=== PATIENT | female | born 1945 | race Caucasian/White ===

== ENCOUNTER 2022-03-31 10:34 | Outpatient (CLI) | payer MEDICARE, SELFPAY ==
--- NOTE | ~2022-03-31 | XR_ITS ---
EXAMINATION: XR scoliosis survey DATE: 03/31/2022 11:15 INDICATION: Scoliosis, unspecified. TECHNIQUE: Frontal and lateral views of the entire spine standing with breast ellis were obtained. COMPARISON: None. FINDINGS: Right femoral head stands 7 mm higher than the left. There is kyphosis of thoracic spine. T here are 12 pairs of ribs. There are 5 nonrib-bearing lumbar segments. There is 20 degrees levoscolio sis from T1 to T5 by the Stringer method. There is mild thoracic and lumbar spondylosis. IMPRESSION: 1. 20 degrees levoscoliosis from T1 to T5. 2. Thoracic kyphosis. Reviewed, dictated and finalized at location A.
[2022-03-31 11:10] LABS: Albumin Level 4.2 g/dL (3.5-5.1); Cholesterol 193 mg/dL (0-200); HDL Direct 103 mg/dL; Triglycerides 102 mg/dL (<150)
[2022-03-31 11:20] LABS: LDL Cholesterol Direct 61 mg/dL; Prealbumin 16.7 mg/dL (17.6-36.0)
[2022-03-31 11:45] LABS: Hemoglobin A1C 5.8 % (<5.7)
[2022-03-31 12:16] LABS: Folic Acid 18.2 ng/mL (2.76->20)
[2022-03-31 12:18] LABS: Free T4 Free Thyroxine 1.54 ng/mL (0.78-2.19); Vitamin D 25 Hydroxy 67.7 ng/mL
[2022-04-03 11:12] LABS: Vitamin B1 43 nmol/L (8-30)
[2022-04-06 05:13] LABS: Vitamin B6 15.8 ng/mL (2.1-21.7)
[2022-04-08 17:41] LABS: Vitamin B2 49.1 nmol/L (6.2-39.0)
== END 2022-03-31 10:35 | disposition home or self-care (01) ==
PROVIDERS: PCP Internal Medicine; Visit Provider Internal Medicine
DX: I73.9 Peripheral vascular disease, unspecified (principal); Z13.220 Encounter for screening for lipoid disorders; F09 Unspecified mental disorder due to known physiological condition; E55.9 Vitamin D deficiency, unspecified; M81.0 Age-related osteoporosis without current pathological fracture; R63.4 Abnormal weight loss; Z13.29 Encounter for screening for other suspected endocrine disorder; Z13.1 Encounter for screening for diabetes mellitus; M95.5 Acquired deformity of pelvis; Z79.899 Other long term (current) drug therapy; M41.84 Other forms of scoliosis, thoracic region; M40.294 Other kyphosis, thoracic region
CPT/HCPCS: 36415; 72082; 80061; 82040; 82306; 82607; 82746; 83036; 84134; 84155; 84207; 84252; 84425; 84439

== ENCOUNTER 2022-05-29 11:06 | Observation (INO) | payer MEDICARE, SELFPAY ==
[2022-05-29] VITALS (51 sets, daily range): BP systolic 126–169; BP diastolic 75–121; PULSE 64–154; RESP 13–25; TEMP 36.6; O2SAT 96–100
--- NOTE | 2022-05-29 11:08 | ECG_ITS ---
Measurements Intervals [place] Rate: 154 P: PA: 0 QRS: 60 QRSD: 69 T: 19 QT: 307 QTc: 492 Interpretive Statements ATRIAL FLUTTER/TACHYCARDIA WITH RAPID VENTRICULAR RESPONSE NONSPECIFIC ST SEGMENT ABNORMALITY ABNORMAL ECG NO PREVIOUS ECG AVAILABLE FOR COMPARISON Electronically Signed On 05-29-2022 16:40:26 RECORD CENTER SPECIALIST by Kunal Mendoza M.D.
[2022-05-29 11:27] LABS: Basophils Absolute Auto 0.1 K/mm3 (0.0-0.1); Basophils Percent Auto 1.1 % (0.2-1.2); Eosinophils Absolute Auto 0.2 K/mm3 (0-0.3); Eosinophils Percent Auto 1.6 % (0-4.4); Hematocrit 40.8 % (37.0-47.0); Hemoglobin 12.4 g/dL (12.0-15.0); Immature Granulocyte Absolute 0.04 K/mm3 (0.00-0.031); Immature Granulocyte Percent A 0.4 % (0-0.5); Lymphocytes Absolute Auto 1.13 K/mm3 (0.9-3.2); Lymphocytes Percent Auto 10.9 % (18.3-44.2); Mean Corpuscular HGB Conc 30.4 g/dl (32-36); Mean Corpuscular Hemoglobin 24.8 pg (26-34); Mean Corpuscular Volume 81.8 fl (80-100); Mean Platelet Volume 10.9 fl (7.4-10.4); Monocytes Percent Auto 9.3 % (2.6-8.5); Neutrophils Absolute Auto 7.9 K/mm3 (1.3-6.7); Neutrophils Percent Auto 76.7 % (45.5-73.1); Platelet Count Result 358 k/mm3 (150-375); Red Blood Count 4.99 M/mm3 (4.2-5.4); Red Cell Distribution Width 15.3 % (11.5-14.5); White Blood Count 10.3 K/mm3 (4.5-10.0)
[2022-05-29 11:35] LABS: Alanine Aminotransferase 17 U/L (6-35); Albumin Level 4.3 g/dL (3.5-5.1); Alkaline Phosphatase 92 U/L (38-126); Anion Gap 8 mmol/L (8-16); Aspartate Amino Transferase 26 U/L (14-36); Bilirubin,Total 0.7 mg/dL (0.2-1.3); Blood Urea Nitrogen 20 mg/dL (7-17); Calcium 8.9 mg/dL (8.4-10.2); Carbon Dioxide 27 mmol/L (22-30); Chloride 107 mmol/L (98-107); Estimated CRCL calculation 43 ml/min; Estimated Glomerular Filt Rate > 60; Glucose 108 mg/dL (65-110); Potassium 3.8 mmol/L (3.4-5.0); Sodium 142 mmol/L (137-145)
--- NOTE | 2022-05-29 12:08 | ED.GENADULT ---
HPI - General Adult General Chief complaint: Arrhythmia/Palpitations Stated complaint: high heart rate, sent over from [facility] Time Seen by Provider: 05/29/22 11:41 History of Present Illness HPI narrative: 76-year-old female with past medical history of dementia and distant history of paroxysmal atrial fibrillation presents to our department for tachycardia. Patient visited a new PCP to establish care today and on arrival was noted to have a heart rate in the 150s. She was diverted to the emergency department for treatment. Of note this elevated heart rate is asymptomatic and patient would not have known that her heart was beating quickly if the doctor had not checked it. She denies lightheadedness, weakness, syncope, chest pain, shortness of breath, palpitations. has inform me that the patient wears an apple watch and he will noticed that his 's heart rate will often elevate when they are on walks but he has never felt any concerns about it. I have reviewed his log from the apple watch and patient's heart rate generally goes to the 120s to 140s returns to normal rate with rest. Twelve-lead EKG performed in triage demonstrates an atrial fibrillation with RVR in the 150s. No anticoagulant/ antiplatelet medication. She has seen an reconcilement clerk at [facility] who felt that no intervention was warranted. Related Data Home Medications Medication Instructions Recorded Confirmed aspirin 81 mg tablet,delayed 81 mg PO DAILY 03/31/22 03/31/22 release (Adult Low Dose Aspirin) calcium citrate 250 mg 1 tablet PO TID 03/31/22 03/31/22 calcium-vitamin D3 5 mcg (200 unit) tablet (Citracal Regular) szquadnt-kcn-yjtmb ac 400 tablet PO 03/31/22 03/31/22 mcg-calcium carb 500 mg-vit K1 20 mcg tablet (Women's 50 Plus Multivitamin) omega-3 fatty acids 1,000 mg 1,000 mg PO BID 03/31/22 03/31/22 capsule Allergies Allergy/AdvReac Type Severity Reaction Status Date / Time No Known Drug Allergies AdvReac Unknown Verified 03/31/22 09:03 Review of Systems Review of Systems: CONSTITUTIONAL: Denies fever, chills, or sweats. EYES: Denies visual changes, redness, or discharge. ENT: Denies rhinorrhea, congestion, sore throat, or otalgia. CARDIOVASCULAR: Denies chest pain, palpitations, or edema. RESPIRATORY: Denies cough or dyspnea. GASTROINTESTINAL: Denies abdominal pain, nausea, vomiting, or diarrhea. GENITOURINARY: Denies dysuria or hematuria. SKIN: Denies rash or itching. MUSCULOSKELETAL: Denies back pain, joint pain, or myalgia. NEUROLOGIC: Denies headache, numbness, or weakness. PSYCHIATRIC: Denies anxiety or depression. [facility] Past Medical History Medical History (Updated 05/29/22 @ 16:58 by Crystal Cole NP) Adult BMI <19 kg/sq m Cataracts, bilateral Cognitive dysfunction Dementia Encounter to establish care Impaired functional mobility, balance, gait, and endurance On halfway drug therapy Orthostatic hypertension Osteoporosis Pre-diabetes Scoliosis Small vessel disease SVT (supraventricular tachycardia) Syncopal episodes Tachycardia Unintentional weight loss Surgical History Surgical History (Updated 05/29/22 @ 13:21 by Crystal Cole NP) H/O wrist surgery History of laparoscopic cholecystectomy Family History Family History Mother , sepsis- bladder infection Dementia Sibling No problems noted. Social History Social History (Updated 05/29/22 @ 16:31 by Crystal Cole NP) Social History: The patient and they have no children. She worked at 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 One a week she has a glass a wine. She is a lifelong nonsmoker. Her is a durable power civil litigation attorney for healthcare. Code status full code Smoking status: Never smoker Second hand tobacco smoke exposure: No Alcohol intake: current Drinks per week: 2 Alc
[2022-05-29 12:16] LABS: Troponin I < 0.012 ng/mL (0.000-0.034)
[2022-05-29] MEDS: dilTIAZem HCl INJ 25 MG/5 ML VIAL 5 MG IV PUSH ×2 (12:21→12:41)
--- NOTE | 2022-05-29 12:34 | PC.NURSE ---
AMBROCIO from Dr. Iraheta for 5mg diltiazem
[2022-05-29] MEDS: METOPROLOL TARTRATE 25 MG TABLET PO (13:11)
--- NOTE | 2022-05-29 13:17 | PM.IMHP ---
H&P: HPI History of Present Illness Date/Time: 05/29/22 13:17 Chief Complaint: Arrhythmia palpitation Narrative: This is a 76-year-old female patient who is typically healthy. She does have a history of orthostatic hypotension. She has also had a history of having syncopal episodes. The patient has been placed on fludrocortisone for her orthostatic hypotension. The patient typically has a fast heart rate. The patient likes to walk. The patient stated that she did have some episodes in the past were heart rate was fast but was only placed on and baby aspirin the medications for it. The patient recently moved here and was establishing care with Dr. Bingham. The patient was sent to the emergency room due to heart rate in the 150s. The patient was asymptomatic. The patient was found to be in AFib with RVR. She has a history of dementia and the patient's is answering the questions for her. The patient was given Cardizem IV and then p.o. and then was started on metoprolol. Cardiology has seen the patient stated that the patient may be discharged to home. Her white count was found to be 10.3. Troponins negative x2. She was found to be negative for influenza A/B and COVID. The patient is being admitted to observation status on the date of service of 05/29/2022. short stay and will be discharged to home . Review of Systems Review of Systems: All systems reviewed & are unremarkable except as noted in HPI and below Constitutional: Constitutional: Reports as per HPI and Reports no additional constitutional complaints Eyes: Eyes: Reports as per HPI and Reports no additional eye complaints ENT: Reports system reviewed and no additional complaints, except as documented and Reports Normal hearing present Cardiovascular: Cardiovascular: Reports no additional cardiovascular complaints Respiratory: Respiratory: Reports no additional respiratory complaints and Reports no additional respiratory complaints Gastrointestinal: Gastrointestinal: Reports as per HPI and Reports no additional gastrointestinal complaints Musculoskeletal: Musculoskeletal: Reports no additional musculoskeletal complaints Integumentary/Breasts: Skin/Breast: Reports system reviewed and no additional complaints, except as docu and Reports as per HPI Neurologic: Reports system reviewed and no additional complaints, except as documented, Reports as per HPI and Reports Normal hearing present Psychiatric: Psychiatric: Reports no additional psychiatric complaints and Reports as per HPI Endocrine: Endocrine: Reports no additional endocrine complaints Hematologic/Lymphatic: Hematologic/Lymphatic: Reports no additional hematologic/lymphatic complaints Allergic/Immunologic: Allergic/Immunologic: Reports no additional allergic/immunologic complaints [facility] Past Medical History Medical History (Updated 05/29/22 @ 16:58 by Crystal Cole NP) Adult BMI <19 kg/sq m Cataracts, bilateral Cognitive dysfunction Dementia Encounter to establish care Impaired functional mobility, balance, gait, and endurance On correction drug therapy Orthostatic hypertension Osteoporosis Pre-diabetes Scoliosis Small vessel disease SVT (supraventricular tachycardia) Syncopal episodes Tachycardia Unintentional weight loss Surgical History Surgical History (Updated 05/29/22 @ 13:21 by Crystal Cole NP) H/O wrist surgery History of laparoscopic cholecystectomy Family History Family History Mother , sepsis- bladder infection Dementia Sibling No problems noted. Social History Social History (Updated 05/29/22 @ 16:31 by Crystal Cole NP) Social History: The patient and they have no children. She worked at [employer] with a degree and [employer] science. One a week she has a glass a wine. She is a lifelong nonsmoker. Her is a durable power sports attorney for heal
--- NOTE | 2022-05-29 14:34 | ECG_ITS ---
Measurements Intervals [place] Rate: 65 P: 60 VA: 162 QRS: 55 QRSD: 74 T: 72 QT: 423 QTc: 441 Interpretive Statements SINUS RHYTHM WITH OCCASIONAL SUPRAVENTRICULAR PREMATURE COMPLEXES POSSIBLE LEFT ATRIAL ENLARGEMENT [-0.1mV P WAVE IN V1/V2] MINIMAL ST DEPRESSION [0.025+ mV ST DEPRESSION] COMPARED TO ECG 05/29/2022 11:13:17 SINUS RHYTHM REPLACES ATRIAL FLUTTER Electronically Signed On 05-29-2022 16:45:51 PACKAGING CLERK by Kunal Mendoza M.D.
[2022-05-29 14:51] LABS: Troponin I < 0.012 ng/mL (0.000-0.034)
[2022-05-29 16:07] LABS: Influenza A QL RT-PCR Negative (Negative); Influenza B QL RT-PCR Negative (Negative); SARS-CoV-2 RNA PCR Negative
--- NOTE | 2022-05-29 16:09 | PM.CNCAR ---
Assessment and Plan Assessment and plan (1) SVT (supraventricular tachycardia): Code(s): I47.1 - Supraventricular tachycardia Status: Acute Plan This is a 76-year-old lady with a history of some L time was type dementia according to the who has now history of both paroxysmal atrial fib as well as paroxysmal atrial flutter. During both these arrhythmias she is asymptomatic and unaware of her arrhythmia. She was treated in the emergency room and is back in sinus rhythm. I would agree with her seal mixer several months ago and that she is a poor candidate for systemic anticoagulation as she is quite frail and has a propensity to fall. On the positive side she says she has not done any falling since being placed on Florinef. I believe since she is back in sinus rhythm in that she can be safely discharged I would like to get an echocardiogram on her in the office and then see her in follow-up for further management of this. Kunal Mendoza MD [facility] History of Present Illness History of Present Illness Consult date/time: 05/29/22 16:09 Reason For Visit: Atrial Fibrillation with RVR Narrative: This is a 76-year-old woman known to me prior to this encounter am seeing her at the request of the emergency staff/hospitalist because of atrial flutter which was treated this morning in the emergency room. The patient has a history of paroxysmal atrial fibrillation which has been asymptomatic. She seen in a routine appointment with her primary care physician, Dr. Melgar this morning and was found to be tachycardic in the office and electrocardiogram demonstrated atrial flutter with 2-1 conduction and she was sent to the emergency room. Remarkably she was completely unaware of this and asymptomatic of her arrhythmia she denies any sense of tachycardia or palpitations chest pain shortness of breath or any other symptomatology. She is not a great historian she does have a history of some dementia according to her is with her in the room. He states that she had really no cardiac history at all until August of this year which she was found to have asymptomatic paroxysmal atrial fibrillation. Prior to that she has had several episodes of syncope that were unexplained. For that reason her physician had her wear a 24 hour monitor device which demonstrated an episode of atrial fibrillation that apparently lasted for about 20 seconds. She was referred to an seal mixer at [facility] who did not believe that this had a thing to do with syncopal episodes and because of her propensity to fall did not recommend treating the arrhythmia and did not recommend an anticoagulant. 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 She became established with her primary care with Dr. Motta. She also carries the diagnosis of orthostatic hypotension. She states that she was started on Florinef about 3-4 months ago but because of the syncope in this diagnosis and since being started on Florinef has not had any further loss of consciousness spells. She does carry the diagnosis of dementia her states she has felt to have are early stage Alzheimer's. In the emergency room this morning she was initially given some IV diltiazem which did slow her heart rate she was then given some oral metoprolol and then she converted to sinus rhythm. Review of Systems Constitutional: Constitutional: Reports lethargy Eyes: Eyes: Reports no additional eye complaints ENT: Reports system reviewed and no additional complaints, except as documented Cardiovascular: Cardiovascular: Reports as per HPI Respiratory: Respiratory: Reports no additional respiratory complaints Gastrointestinal: Gastrointestinal: Reports no additional gastrointestinal complaints Musculoskeletal: Musculoskeletal: Reports no additional musculoskeletal complaints Integumentary/Breasts: Skin/Breast: Reports system r
--- NOTE | 2022-05-29 16:57 | PC.NURSE ---
heart healthy diet food tray ordered
--- NOTE | 2022-05-29 17:19 | PM.DS ---
DS: Admitting Diagnosis Discharge Date 05/29/2022 Admitting Diagnosis Palpitations DS: Discharge Diagnosis Discharge Diagnosis [facility] [address] [place] [id number] History & Physical Report Signed Patient: Shelly Mims MR#: [id number] : 1945 Acct:[id number] Age/Sex: 76 / F ADM Date: 05/29/22 Loc: [facility] VB6-[address]: Lizabeth Samaniego MD cc: Lizabeth Samaniego MD; Alejandro Melgar MD; Siddharth Iraheta D.C. DO~ H&P: HPI History of Present Illness Date/Time: 05/29/22? 13:17 Chief Complaint: Arrhythmia palpitation Narrative: This is a 76-year-old female patient who is typically healthy.? She does have a history of orthostatic hypotension.? She has also had a history of having syncopal episodes.? The patient has been placed on fludrocortisone for her orthostatic hypotension.? The patient typically has a fast heart rate.? The patient likes to walk.? The patient stated that she did have some episodes in the past were heart rate was fast but was only placed on and baby aspirin the medications for it.? The patient recently moved here and was establishing care with Dr. Bingham.? The patient was sent to the emergency room due to heart rate in the 150s.? The patient was asymptomatic.? The patient was found to be in AFib with RVR.? She has a history of dementia and the patient's is answering the questions for her.? The patient was given Cardizem IV and then p.o. and then was started on metoprolol.? Cardiology has seen the patient stated that the patient may be discharged to home.? Her white count was found to be 10.3.? Troponins negative x2.? She was found to be negative for influenza A/B and COVID.? The patient is being admitted to observation status on the date of service of 05/29/2022. short stay and will be discharged to home . Review of Systems Review of Systems:?? All systems reviewed & are unremarkable except as noted in HPI and below Constitutional:?? Constitutional: Reports as per HPI and Reports no additional constitutional complaints Eyes:?? Eyes: Reports as per HPI and Reports no additional eye complaints ENT:?? Reports system reviewed and no additional complaints, except as documented and Reports Normal hearing present Cardiovascular:?? Cardiovascular: Reports no additional cardiovascular complaints Respiratory:?? Respiratory: Reports no additional respiratory complaints and Reports no additional respiratory complaints Gastrointestinal:?? Gastrointestinal: Reports as per HPI and Reports no additional gastrointestinal complaints Musculoskeletal:?? Musculoskeletal: Reports no additional musculoskeletal complaints Integumentary/Breasts:?? Skin/Breast: Reports system reviewed and no additional complaints, except as docu and Reports as per HPI Neurologic:?? Reports system reviewed and no additional complaints, except as documented, Reports as per HPI and Reports Normal hearing present Psychiatric:?? Psychiatric: Reports no additional psychiatric complaints and Reports as per HPI Endocrine:?? Endocrine: Reports no additional endocrine complaints Hematologic/Lymphatic:?? Hematologic/Lymphatic: Reports no additional hematologic/lymphatic complaints Allergic/Immunologic:?? Allergic/Immunologic: Reports no additional allergic/immunologic complaints PMFSH Past Medical History Medical History?(Updated 05/29/22 @ 16:58 by Crystal Cole NP) Adult BMI <19 kg/sq m Cataracts, bilateral Cognitive dysfunction Dementia Encounter to establish care Impaired functional mobility, balance, gait, and endurance On long term care phlebotomist drug therapy Orthostatic hypertension Osteoporosis Pre-diabetes Scoliosis Small vessel disease SVT (supraventricular tachycardia) Syncopal episodes Tachycardia Unintentional weight loss Surgical History Surgical History?(Updated 05/29/22 @ 13:21 by Crystal Cole NP) H/O wrist surgery History of laparos
== END 2022-05-29 17:45 | disposition home or self-care (01) ==
LOC: ANHED 13:04 → ANHIMU 16:04
PROVIDERS: Admitting Provider Family Medicine; Emergency Provider Emergency Medicine; PCP Internal Medicine; Visit Provider Family Medicine
DX: I48.91 Unspecified atrial fibrillation (principal); I47.1 Supraventricular tachycardia; F03.90 Unspecified dementia, unspecified severity, without behavioral disturbance, psychotic disturbance, mood disturbance, and anxiety; I10 Essential (primary) hypertension; R55 Syncope and collapse; I48.92 Unspecified atrial flutter; Z74.09 Other reduced mobility; M81.0 Age-related osteoporosis without current pathological fracture; I67.89 Other cerebrovascular disease; R94.31 Abnormal electrocardiogram [ECG] [EKG]; F10.90 Alcohol use, unspecified, uncomplicated; Z20.822 Contact with and (suspected) exposure to COVID-19; R63.4 Abnormal weight loss; Z68.1 Body mass index [BMI] 19.9 or less, adult; Z79.52 Long term (current) use of systemic steroids; Z79.82 Long term (current) use of aspirin; Z79.899 Other long term (current) drug therapy; Z81.8 Family history of other mental and behavioral disorders
CPT/HCPCS: 36415; 80053; 84484; 85025; 87636; 93005; 96374; 99285; A9270; G0378

== ENCOUNTER 2022-09-10 12:22 | Emergency (ER) | payer MEDICARE, SELFPAY ==
--- NOTE | ~2022-09-10 | XR_ITS ---
XR chest 1V DATE: 09/10/2022 13:31 INDICATION: Tachycardia. Hypertension. History of supraventricular tachycardia. TECHNIQUE: AP chest COMPARISON: None FINDINGS: Mild cardiac megaly. Aortic arch calcification. No hilar or mediastinal enlargement. Mild bilateral apical capping. No pulmonary infiltrate or consolidation, pleural effusion or pulmonar y vascular congestion or pneumothorax is detected. Prominent left cervical rib. Dextroscoliosis of the thoracolumbar spine. Osteopenia. IMPRESSION: Mild cardiomegaly Aortic calcification Osteopenia Prominent left cervical rib Reviewed, dictated and finalized at location L.
--- NOTE | ~2022-09-10 | CT_ITS ---
EXAMINATION: CT brain wo con DATE: 09/10/2022 13:25 INDICATION: Increased confusion. History of dementia. TECHNIQUE: Computed tomography (CT) of the head was performed without intravenous contrast. The mA wa s adjusted according to patient size. Iterative reconstruction technique was employed. Exam dose: 60 5.33 mGy-cm total exam DLP. COMPARISON: None FINDINGS: Subacute or chronic medial right occipital encephalomalacia, consistent with cerebrovascula r infarct, right posterior cerebral artery territory. There is nonspecific diminished attenuation of the cerebral white matter, likely due to chronic small vessel ischemic change. There are bilateral carotid siphon internal carotid artery calcifications as well as vertebrobasilar artery calcification. No intracranial mass lesion or hemorrhage, midline shift or mass effect is detected. Moderate cerebra l volume loss. No subdural or epidural hematoma is detected. The left mastoid air cells are well-developed and aerated. Minimal right mastoid air cell effusions. The mastoid air cells on the right otherwise are unremarkable. Normal development and aeration of the paranasal sinuses. No fracture or bone destruction of the cranial vault. 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 Reviewed, dictated and finalized at location L. 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
[2022-09-10 12:38] VITALS: BP 171/94; PULSE 136; PULSE 62; RESP 20; TEMP 37.1; O2SAT 99
--- NOTE | 2022-09-10 12:53 | ECG_ITS ---
Measurements Intervals [place] Rate: 141 P: MA: 0 QRS: 52 QRSD: 68 T: 62 QT: 240 QTc: 368 Interpretive Statements ATRIAL FIBRILLATION WITH RAPID VENTRICULAR RESPONSE NONSPECIFIC ST & T-WAVE ABNORMALITY- DIFFUSE LEADS BASELINE ARTIFACT- II, III, AVL V1-V2 ABNORMAL ECG COMPARED TO ECG 05/29/2022 14:37:43 ATRIAL FIBRILLATION NOW PRESENT ST-T WAVE ABNORMALITY NOW PRESENT Electronically Signed On 09-10-2022 13:19:05 CDT by Seth Hamilton D.O.
--- NOTE | 2022-09-10 13:10 | PC.NURSE ---
Pt's family states pt has been recently diagnosed with SALLY and was placed on CPAP in the middle of August.
--- NOTE | 2022-09-10 13:14 | ED.ARRPALP ---
HPI - Arrhythmia/Palpitations General Chief Complaint: Arrhythmia/Palpitations Time Seen by Provider: 09/10/22 13:03 History of Present Illness HPI narrative: 77-year-old female history of dementia, orthostatic hypotension and paroxysmal A-fib presents to the emergency room from her physician's office for further evaluation of A-fib with RVR. Patient denies any palpitations, chest pain or shortness of breath. Denies dizziness or lightheadedness. Patient has been evaluated by Dr. Mendoza in 2021 and was determined not to put her on any anticoagulation due to her dementia and increased risk for falls. Patient has been placed on a low-dose metoprolol for rate control. Patient is unsure as to how long she has been experiencing A-fib with RVR. Related Data Home Medications Medication Instructions Recorded Confirmed aspirin 81 mg tablet,delayed 81 mg PO DAILY 03/31/22 06/09/22 release (Adult Low Dose Aspirin) calcium citrate 250 mg 1 tablet PO TID 03/31/22 06/09/22 calcium-vitamin D3 5 mcg (200 unit) tablet (Citracal Regular) hbnqekhd-lfc-smfqm ac 400 tablet PO 03/31/22 06/09/22 mcg-calcium carb 500 mg-vit K1 20 mcg tablet (Women's 50 Plus Multivitamin) omega-3 fatty acids 1,000 mg 1,000 mg PO BID 03/31/22 06/09/22 capsule Allergies Allergy/AdvReac Type Severity Reaction Status Date / Time No Known Drug Allergies AdvReac Unknown Verified 06/09/22 13:12 Review of Systems Review of Systems: CONSTITUTIONAL: Denies fever, chills, or sweats. EYES: Denies visual changes, redness, or discharge. ENT: Denies rhinorrhea, congestion, sore throat, or otalgia. CARDIOVASCULAR: Per HPI RESPIRATORY: Denies cough or dyspnea. GASTROINTESTINAL: Denies abdominal pain, nausea, vomiting, or diarrhea. GENITOURINARY: Denies dysuria or hematuria. SKIN: Denies rash or itching. MUSCULOSKELETAL: Denies back pain, joint pain, or myalgia. NEUROLOGIC: Denies headache, numbness, dizziness, or weakness. PSYCHIATRIC: Denies anxiety or depression. 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 Social History Social History Social History: The patient and they have no children. She worked at [employer] with a degree and [employer] science. One a week she has a glass a wine. She is a lifelong nonsmoker. Her is a durable power sheriffs for healthcare. Code status full code Smoking status: Never smoker Second hand tobacco smoke exposure: No Alcohol intake: current Drinks per week: 2 Alcohol use details: wine Substance use: never Lack of Transportation: No Lack of Food: Never True Current Housing: I Have Housing Concerned About Future Housing: No Difficulty Paying Gas/Electric Bills: No Difficulty Paying for Meds: No Currently Unemployed: No Education: Master's Degree or Higher Difficulty w/ Childcare or Family Care: No Living arrangements: with family Occupation/Education: retired Gender identity (if verbalized by the patient): Male Exam Narrative: GENERAL: Well-appearing, well-nourished, no physical limitations, and in n
[2022-09-10] MEDS: dilTIAZem HCl INJ 25 MG/5 ML VIAL 10 MG IV PUSH (13:15)
[2022-09-10] MEDS: ASPIRIN 81 MG CHEWABLE TABLET 324 MG PO (13:17)
[2022-09-10 13:21] LABS: Basophils Absolute Auto 0.1 K/mm3 (0.0-0.1); Basophils Percent Auto 0.9 % (0.2-1.2); Eosinophils Absolute Auto 0.1 K/mm3 (0-0.3); Eosinophils Percent Auto 0.7 % (0-4.4); Hematocrit 41.2 % (37.0-47.0); Hemoglobin 12.5 g/dL (12.0-15.0); Immature Granulocyte Absolute 0.04 K/mm3 (0.00-0.031); Immature Granulocyte Percent A 0.4 % (0-0.5); Lymphocytes Absolute Auto 1.29 K/mm3 (0.9-3.2); Lymphocytes Percent Auto 12.3 % (18.3-44.2); Mean Corpuscular HGB Conc 30.3 g/dl (32-36); Mean Corpuscular Hemoglobin 24.3 pg (26-34); Mean Corpuscular Volume 80.2 fl (80-100); Mean Platelet Volume 11.3 fl (7.4-10.4); Monocytes Absolute Auto 0.9 K/mm3 (0.1-0.6); Monocytes Percent Auto 8.9 % (2.6-8.5); Neutrophils Absolute Auto 8.1 K/mm3 (1.3-6.7); Neutrophils Percent Auto 76.8 % (45.5-73.1); Platelet Count Result 345 k/mm3 (150-375); Red Blood Count 5.14 M/mm3 (4.2-5.4); Red Cell Distribution Width 16.2 % (11.5-14.5); White Blood Count 10.5 K/mm3 (4.5-10.0)
[2022-09-10 13:26] LABS: Alanine Aminotransferase 17 U/L (6-35); Albumin Level 4.1 g/dL (3.5-5.1); Alkaline Phosphatase 86 U/L (38-126); Anion Gap 6 mmol/L (8-16); Aspartate Amino Transferase 21 U/L (14-36); Bilirubin,Total 0.5 mg/dL (0.2-1.3); Blood Urea Nitrogen 20 mg/dL (7-17); Carbon Dioxide 30 mmol/L (22-30); Chloride 105 mmol/L (98-107); Estimated CRCL calculation 50 ml/min; Estimated Glomerular Filt Rate > 60; Glucose 117 mg/dL (65-110); Lipase 125 U/L (23-300); Potassium 4.1 mmol/L (3.4-5.0); Sodium 141 mmol/L (137-145)
[2022-09-10 13:29] LABS: INR 1.1; Prothrombin Time 13.5 Seconds (11.1-14.7)
[2022-09-10 13:38] LABS: Troponin I < 0.012 ng/mL (0.000-0.034)
[2022-09-10 14:25] VITALS: BP 145/90; PULSE 110; RESP 26; O2SAT 98
== END 2022-09-10 14:25 | disposition home or self-care (01) ==
PROVIDERS: Emergency Medicine; Emergency Provider Nurse Practitioner Family; PCP Internal Medicine
DX: I48.0 Paroxysmal atrial fibrillation (principal); F03.90 Unspecified dementia, unspecified severity, without behavioral disturbance, psychotic disturbance, mood disturbance, and anxiety; R73.03 Prediabetes; I95.1 Orthostatic hypotension; M81.0 Age-related osteoporosis without current pathological fracture; Z79.82 Long term (current) use of aspirin; R94.31 Abnormal electrocardiogram [ECG] [EKG]; M85.88 Other specified disorders of bone density and structure, other site; I70.0 Atherosclerosis of aorta; I51.7 Cardiomegaly; I67.2 Cerebral atherosclerosis
CPT/HCPCS: 36415; 70450; 71045; 80053; 83690; 84443; 84484; 85025; 85610; 85730; 93005; 96374; 99284; A9270

== ENCOUNTER 2022-11-22 13:43 | Inpatient (IN) | payer MEDICARE, SELFPAY ==
[2022-11-22] VITALS (17 sets, daily range): BP systolic 116–166; BP diastolic 45–103; PULSE 73–108; RESP 20–27; TEMP 36.4–36.5; O2SAT 97–100; BMI 18.8
--- NOTE | ~2022-11-22 | XR_ITS ---
EXAMINATION: XR hip RT min 2V DATE: 11/23/2022 12:42 INDICATION: Right hip pain TECHNIQUE: Two views of right hip were obtained. COMPARISON: CT from today FINDINGS: Again seen is an acute subcapital fracture of the right femoral neck. No additional fractur e is identified. The soft tissues are unremarkable. IMPRESSION: 1. Acute subcapital fracture of the right femoral neck. Reviewed, dictated and finalized at location A.
--- NOTE | ~2022-11-22 | XR_ITS ---
XR chest 2V 11/22/2022 14:23 Indication: Weakness. Procedure: 2 view chest Comparison: 09/10/2022 Findings: Borderline heart size. Left lower lobe airspace disease, compatible with pneumonia. No sign ificant effusion or pneumothorax. No acute osseous abnormality. Impression: 1: Left lower lobe airspace disease, compatible with pneumonia. Reviewed, dictated and finalized at location A. Impression: 1: Left lower lobe airspace disease, compatible with pneumonia.
--- NOTE | ~2022-11-22 | CT_ITS ---
EXAMINATION: CT abdomen pelvis wo con DATE: 11/23/2022 08:07 INDICATION: Abdominal pain. Hematuria. TECHNIQUE: Computed tomography (CT) of the abdomen and pelvis was performed without intravenous contr ast. Automated exposure control and iterative reconstruction technique were employed. The dose-length product was 399.20 mGy-cm. COMPARISON: None. FINDINGS: The visualized portions of the lung bases demonstrate airspace and groundglass opacities in left lower lobe, consistent with atelectasis versus pneumonia. There is a small left pleural effusio n. The heart size is normal. No pericardial effusion. Pectus excavatum is noted. The liver is normal. There are changes of cholecystectomy. The spleen, pancreas, and adrenal glands are normal. There are cysts in the kidneys measuring up to 9 mm on the right. There is no urolithiasis. The bladder is dec ompressed by a Bravo catheter. There is a gastrostomy tube in expected position. There are no dilated loops of bowel. The appendix is not visualized. There is wall thickening of the rectum with surround ing fat stranding. There is a 3.3 cm mass in left ovary. There are no pathologically enlarged lymph nodes. There is no free intraperitoneal fluid. There is a subcapital fracture of right femoral neck. The distal fracture fragment demonstrates 30 degrees varus angulation, posterior displacement, and 75 degrees posterior angulation. Partially visualized is a subcutaneous hematoma lateral to proximal ri ght femur. There is a burst fracture of L1 with 2/5 loss of height and retropulsion of bone 4 mm into central spinal canal. IMPRESSION: 1. Airspace and groundglass opacities in left lung lower lobe, consistent with atelectasis versus pne umonia. 2. Small left pleural effusion. 3. Wall thickening of the rectum with surrounding fat stranding, consistent with proctitis. 4. 3.3 cm mass in left ovary, which may be benign or less likely malignant. Pelvis ultrasound is sonia mmended. 5. Subcapital fracture right femoral neck. 6. Burst fracture of L1, likely acute or subacute. 7. No urolithiasis. Reviewed, dictated and finalized at location A. IMPRESSION: 1. Airspace and groundglass opacities in left lung lower lobe, consistent with atelectasis versus pneumonia. 2. Small left pleural effusion. 3. Wall thickening of the rectum with surrounding fat stranding, consistent wit h proctitis. 4. 3.3 cm mass in left ovary, which may be benign or less likely malignant. Pel vis ultrasound is recommended. 5. Subcapital fracture right femoral neck. 6. Burst fracture of L1, likely acute or subacute. 7. No urolithiasis.
--- NOTE | 2022-11-22 13:51 | ECG_ITS ---
Measurements Intervals [place] Rate: 74 P: 59 KS: 165 QRS: 24 QRSD: 80 T: 83 QT: 392 QTc: 435 Interpretive Statements SINUS RHYTHM POSSIBLE LEFT ATRIAL ENLARGEMENT [-0.1mV P-WAVE IN V1/V2] NONSPECIFIC ST & T-WAVE ABNORMALITY CONSIDER INFEROLATERAL ISCHEMIA ABNORMAL ECG NO PREVIOUS ECG AVAILABLE FOR COMPARISON Electronically Signed On 11-23-2022 11:13:15 CDT by Kunal Mendoza M.D.
[2022-11-22 14:14] LABS: Basophils Absolute Auto 0.1 K/mm3 (0.0-0.1); Basophils Percent Auto 0.3 % (0.2-1.2); Eosinophils Absolute Auto 0.1 K/mm3 (0-0.3); Eosinophils Percent Auto 0.2 % (0-4.4); Hematocrit 37.5 % (37.0-47.0); Hemoglobin 11.5 g/dL (12.0-15.0); Immature Granulocyte Absolute 0.15 K/mm3 (0.00-0.031); Immature Granulocyte Percent A 0.6 % (0-0.5); Lymphocytes Absolute Auto 0.45 K/mm3 (0.9-3.2); Lymphocytes Percent Auto 1.9 % (18.3-44.2); Mean Corpuscular HGB Conc 30.7 g/dl (32-36); Mean Corpuscular Hemoglobin 26.2 pg (26-34); Mean Corpuscular Volume 85.4 fl (80-100); Mean Platelet Volume 10.7 fl (7.4-10.4); Monocytes Percent Auto 4.2 % (2.6-8.5); Neutrophils Absolute Auto 21.6 K/mm3 (1.3-6.7); Neutrophils Percent Auto 92.8 % (45.5-73.1); Platelet Count Result 472 k/mm3 (150-375); Red Blood Count 4.39 M/mm3 (4.2-5.4); Red Cell Distribution Width 19.8 % (11.5-14.5); White Blood Count 23.3 K/mm3 (4.5-10.0)
[2022-11-22 14:23] LABS: Alanine Aminotransferase 70 U/L (6-35); Albumin Level 3.5 g/dL (3.5-5.1); Alkaline Phosphatase 98 U/L (38-126); Anion Gap 5 mmol/L (8-16); Aspartate Amino Transferase 29 U/L (14-36); Bilirubin,Total 0.8 mg/dL (0.2-1.3); Blood Urea Nitrogen 22 mg/dL (7-17); Calcium 8.4 mg/dL (8.4-10.2); Carbon Dioxide 31 mmol/L (22-30); Chloride 100 mmol/L (98-107); Estimated CRCL calculation 48 ml/min; Estimated Glomerular Filt Rate > 60; Glucose 192 mg/dL (65-110); Potassium 3.9 mmol/L (3.4-5.0); Sodium 136 mmol/L (137-145)
--- NOTE | 2022-11-22 14:51 | ED.GENADULT ---
HPI - General Adult General Chief complaint: Weakness Stated complaint: weakness/ recent cva Time Seen by Provider: 11/22/22 13:47 History of Present Illness HPI narrative: Patient is a 77-year-old female who presents ER with weakness. Patient suffered a CVA last month in [place]. CVA caused her to fall and developed subarachnoid hemorrhage. She had been rehabbing and then was moved to [facility]. reports that she has been able to participate in care and has been able to walk. Over the last 2 days she has had increased weakness and poor participation. Patient receives tube feeds because she cannot swallow. Due to her change in status has been requested evaluation. There have been no reports of fever by the rehabilitation facility. Related Data Home Medications Medication Instructions Recorded Confirmed acetaminophen 325 mg tablet 650 mg PO Q6H PRN Pain (Scale 11/19/22 11/19/22 Score 1-3) amlodipine 5 mg tablet 5 mg PO DAILY 11/19/22 11/19/22 apixaban 5 mg tablet 5 mg PO BID 11/19/22 11/19/22 melatonin 3 mg tablet 3 mg PO HS PRN Sleep 11/19/22 11/19/22 memantine 10 mg tablet 10 mg PO 11/19/22 metoprolol tartrate 50 mg tablet 50 mg PO BID 11/19/22 11/19/22 polyethylene glycol 3350 17 gram 17 g PO DAILY 11/19/22 11/19/22 oral powder packet sennosides 8.6 mg-docusate sodium 1 tab-cap PO HS PRN Constipation 11/19/22 11/19/22 50 mg tablet (Senna with Docusate Sodium) Miralax 17 g PO DAILY constipation 11/22/22 11/22/22 acetaminophen 650 mg feeding tube Q6H 11/22/22 11/22/22 amlodipine 5 mg feeding tube DAILY 11/22/22 11/22/22 apixaban 5 mg tablet (Eliquis) 5 mg feeding tube BID 11/22/22 11/22/22 melatonin 3 mg feeding tube HS PRN Sleep 11/22/22 11/22/22 memantine 10 mg tablet 10 mg feeding tube DAILY 11/22/22 11/22/22 metoprolol tartrate 50 mg feeding tube BID 11/22/22 11/22/22 rivastigmine tartrate 3 mg feeding tube BID 11/22/22 11/22/22 sennosides-docusate sodium 8.6 - 50 mg feeding tube HS PRN 11/22/22 11/22/22 Constipation Allergies Allergy/AdvReac Type Severity Reaction Status Date / Time No Known Drug Allergies AdvReac Unknown Verified 11/23/22 09:42 Review of Systems Review of Systems: ROS unobtainable: Yes unobtainable due to medical condition [facility] Past Medical History Medical History (Updated 11/23/22 @ 17:38 by Glenn Moreland MD) Adult BMI <19 kg/sq m BMI 20.0-20.9, adult Cataracts, bilateral Chronic anticoagulation Cognitive dysfunction Dementia Dementia Encounter to establish care Follow up Fracture of femoral neck, right Hypertension Impaired functional mobility, balance, gait, and endurance Intraparenchymal hemorrhage of brain Ischemic cerebrovascular accident (CVA) Obstructive sleep apnea on CPAP On custodial drug therapy Orthostatic hypertension Osteoporosis Paroxysmal atrial fibrillation Pre-diabetes Scoliosis Small vessel disease Subarachnoid hemorrhage SVT (supraventricular tachycardia) Syncopal episodes Syncope Tachycardia Unintentional weight loss Surgical History Surgical History H/O wrist surgery History of cholecystectomy History of laparoscopic cholecystectomy History of percutaneous endoscopic gastrostomy Family History Family History Father Alzheimer's dementia Mother Dementia Bladder infection Mother , sepsis- bladder infection Dementia Sibling No problems noted. Social History Social History Social History: Surrogate medical decision maker: Kaylynn Jurado, . Code status: Full code. Smoking status: Never smoker Second hand tobacco smoke exposure: No Alcohol intake: former Drinks per week: 1 Alcohol use details: wine Substance use: never Substance use type: does not use Lack of Transportation: No Lack of Food: [place]
[2022-11-22 15:37] LABS: Appearance Urine Turbid (Clear); Bacteria Urine 4+ /hpf; Bilirubin Urine Negative (Negative); Blood Urine 3+ (Negative); Color Urine Dark Yellow (Yellow); Glucose Urine UA Negative (Negative); Ketones Urine Trace mg/dL (Negative); Leukocyte Esterase Ur 2+ LEU/UL (Negative); Need Manual Microscopic Reviewed; Nitrate Urine Negative (Negative); Protein Urine 2+ mg/dL (Negative); RBC Urine >100 /hpf (0-2); Squamous Epithelial Cell Urine Occasional /hpf (Few); WBC Urine 21-50 /hpf; pH Urine 5.5 (5.0-9.0)
[2022-11-22 15:38] LABS: Add Urine Microscopic? YES
[2022-11-22 15:50] LABS: Influenza A QL RT-PCR Negative (Negative); Influenza B QL RT-PCR Negative (Negative); SARS-CoV-2 RNA PCR Negative (Negative)
--- NOTE | 2022-11-22 15:56 | PM.IMHP ---
H&P: HPI History of Present Illness Date/Time: 11/22/22 15:45 Chief Complaint: Weakness. Narrative: This is a 77-year-old female with history of dementia, paroxysmal atrial fibrillation on anticoagulation, hypertension, obstructive sleep apnea, and history of falls with a recent right frontal subarachnoid hemorrhage, left temporal intraparenchymal hemorrhage, and left frontal ischemic stroke on 10/27/2022 who presented to the emergency department via EMS from [facility] for evaluation of weakness. Her most recent stroke has left her with right-sided weakness, aphasia, and dysphagia. She is unable to provide history and thus all of the following is obtained he discussions with her as well as a review of her medical records. She is able to follow some commands and nod or shake her head appropriately however. Prior to her discharge from the acute hospital, she was ambulating with a walker and one-person assist. Her Eliquis was resumed on 11/17/2022. She was admitted to the rehab facility on in the following days she was participating in therapy however since that time she has become increasingly weak, lethargic, and she could barely stand today with 2 person assist. She is unable to actively communicate any needs or concerns and she was sent in today for evaluation due to this decline. She was afebrile on arrival to the emergency department with stable vital signs. Labs were significant for a WBC count of 23.3, sodium 136, potassium 3.9, BUN 22, creatinine 0.70, glucose 182, lactic acid 2.6, AST 29, ALT 70, alkaline phosphatase 98. Urine was turbid with 2+ protein, trace ketones, 3+ blood, 2+ leukocyte esterase, greater than 100 RBC, 21 to 50 WBC, and 4+ bacteria. She tested negative for influenza and COVID. Chest x-ray showed left lower lobe airspace disease compatible with pneumonia. She was started on ceftriaxone and azithromycin and she is being admitted for further care. At the time my evaluation she will arouse to voice and she attempts to follow commands. She indicates that she has not been feeling well recently and that she is having pain however she is unable to localize the pain. Review of Systems Review of Systems: Unable to obtain given clinical condition as per HPI. [facility] Past Medical History Medical History (Updated 11/22/22 @ 22:44 by Violeta Ryan PA-C) Chronic anticoagulation Dementia Hypertension Intraparenchymal hemorrhage of brain Ischemic cerebrovascular accident (CVA) Obstructive sleep apnea on CPAP Paroxysmal atrial fibrillation Subarachnoid hemorrhage Syncope Surgical History Surgical History History of cholecystectomy History of percutaneous endoscopic gastrostomy Family History Family History Father Alzheimer's dementia Mother Dementia Bladder infection Social History Social History (Updated 11/22/22 @ 22:41 by Violeta Ryan PA-C) Social History: Surrogate medical decision maker: Kaylynn Jurado, . Code status: Full code. Smoking status: Never smoker Alcohol intake: former Substance use: never Additional living arrangements comments: Prior to her recent hospitalization she was living with her in [place]. 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 Spiritual care concerns: No Meds Home Medications and Allergies Home Medications Medication Instructions Recorded Confirmed Type Miralax 17 g PO DAILY constipation 11/22/22 11/22/22 History acetaminophen 650 mg feeding tube Q6H 11/22/22 11/22/22 History amlodipine 5 mg feeding tube DAILY 11/22/22 11/22/22 History apixaban 5 mg tablet (Eliquis) 5 mg feeding tube BID 11/22/22 11/22/22 History melatonin 3 mg feeding tube HS PRN Sleep 11/22/22 11/22/22 History memantine 10 mg tablet 10 mg feeding tube DAILY 11/22/22 11/22/22 History
[2022-11-22] MEDS: AZITHROMYCIN 500 MG/NS 250 ML 500 MG/250 ML BAG 250 MG IVPB (16:02)
[2022-11-22 16:09] LABS: Lactic Acid Reflex 2.6 mmol/L (0.7-2.0)
--- NOTE | 2022-11-22 16:59 | ADMGEN ---
This patient, Shelly Mims, was admitted to [facility] Surg Room 329-01. Patient/family oriented to hospital policies and general routines including ID bracelet, bed and alarms, visiting hours, pain management, procedures, bathroom and other care routines, personal items, smoking policy, room service/diet, and visiting hours. Information on how to activate the Rapid Response Team has been discussed. Patient/Family are encouraged to report perceived risks to care and to ask questions if they do not understand what they are told or what they should do.
[2022-11-22 17:13] LABS: Troponin I < 0.012 ng/mL (0.000-0.034)
[2022-11-22] MEDS: SODIUM CHLORIDE 0.9% IV 1,000 ML 125 ML IV CONT (18:46)
[2022-11-22 18:57] LABS: Reflex Lactic Acid Yes or No Add Lactic
[2022-11-22 19:53] LABS: Lactic Acid 0.8 mmol/L (0.7-2.0)
[2022-11-22 23:49] LABS: Hemoglobin A1C 5.3 % (<5.7)
[2022-11-23] VITALS (15 sets, daily range): BP systolic 130–138; BP diastolic 82–87; PULSE 66–125; RESP 15–21; TEMP 35.8–36.4; O2SAT 95–98; BMI 19.2
[2022-11-23] MEDS: ACETAMINOPHEN 325 MG TABLET 650 MG FEED TUBE ×4 (01:00→18:19)
[2022-11-23] MEDS: IPRATROPIUM BR 0.02% INH SOLN 0.5 MG/2.5 ML VIAL INHALATION ×4 (03:06→20:55)
[2022-11-23] MEDS: LEVALBUTEROL NEB 1.25 MG/3 ML INHALATION ×4 (03:06→20:55)
[2022-11-23] MEDS: SODIUM CHLORIDE 0.9% IV 1,000 ML 75 ML IV CONT (05:37)
[2022-11-23] MEDS: polyethylene glycoL 3350 17 GM POWD.PACK PO (08:50)
[2022-11-23] MEDS: RIVASTIGMINE TARTRATE 1.5 MG CAPSULE 3 MG FEED TUBE ×2 (08:51→18:20)
[2022-11-23] MEDS: amLODIPine BESYLATE 5 MG TABLET FEED TUBE (08:51)
[2022-11-23] MEDS: APIXABAN 5 MG TABLET FEED TUBE ×2 (08:51→20:03)
[2022-11-23 09:17] LABS: Basophils Absolute Auto 0.1 K/mm3 (0.0-0.1); Basophils Percent Auto 0.6 % (0.2-1.2); Eosinophils Absolute Auto 0.4 K/mm3 (0-0.3); Eosinophils Percent Auto 3.1 % (0-4.4); Hematocrit 35.2 % (37.0-47.0); Hemoglobin 10.9 g/dL (12.0-15.0); Immature Granulocyte Absolute 0.04 K/mm3 (0.00-0.031); Immature Granulocyte Percent A 0.4 % (0-0.5); Lymphocytes Absolute Auto 0.89 K/mm3 (0.9-3.2); Lymphocytes Percent Auto 7.9 % (18.3-44.2); Mean Corpuscular Hemoglobin 26.1 pg (26-34); Mean Corpuscular Volume 84.4 fl (80-100); Mean Platelet Volume 10.9 fl (7.4-10.4); Monocytes Absolute Auto 0.7 K/mm3 (0.1-0.6); Neutrophils Absolute Auto 9.2 K/mm3 (1.3-6.7); Platelet Count Result 369 k/mm3 (150-375); Red Blood Count 4.17 M/mm3 (4.2-5.4); Red Cell Distribution Width 20.5 % (11.5-14.5); White Blood Count 11.2 K/mm3 (4.5-10.0)
[2022-11-23] MEDS: AZITHROMYCIN 500 MG/NS 250 ML 500 MG/250 ML BAG 250 MG IVPB (09:19)
[2022-11-23 09:27] LABS: Anion Gap 4 mmol/L (8-16); Blood Urea Nitrogen 20 mg/dL (7-17); Calcium 8.3 mg/dL (8.4-10.2); Carbon Dioxide 30 mmol/L (22-30); Chloride 104 mmol/L (98-107); Estimated CRCL calculation 50 ml/min; Estimated Glomerular Filt Rate > 60; Glucose 117 mg/dL (65-110); Potassium 3.7 mmol/L (3.4-5.0); Sodium 138 mmol/L (137-145)
[2022-11-23] MEDS: METOPROLOL TARTRATE 50 MG TAB FEED TUBE ×2 (12:29→20:02)
[2022-11-23] MEDS: MEMANTINE 10 MG TABLET FEED TUBE (12:30)
--- NOTE | 2022-11-23 12:33 | P.PNIM_ITS ---
Progress Note: A&P Assessment and Plan (1) Left lower lobe pneumonia: Code(s): J18.9 - Pneumonia, unspecified organism Status: Acute Assessment and Plan: CXR with left lower lobe airspace disease compatible with pneumonia. * Continue ceftriaxone and azithromycin * Blood cultures pending * Sputum culture ordered, awaiting collection * COVID and influenza negative * Will check urinary Legionella and pneumococcal antigens * Supportive care. Bronchodilators, incentive spirometry, Cornet valve (pt will need assistance and reminders to use) * Leukocytosis markedly improved (23.3-->11.2) (2) Abnormal computed tomography of abdomen and pelvis: Code(s): R93.5 - Abnormal findings on diagnostic imaging of other abdominal regions, including retroperitoneum Status: Acute Assessment and Plan: Several abnormalities noted on CT of the abdomen/pelvis 1. Subcapital fracture of right femoral neck * Reportedly not previously addressed. Unclear chronicity. * Suspect secondary to fall/collapse on 10/27/2022 onset of acute stroke. Patient's found her on the ground, on her right side and reported subsequent bruising to the right hip * Consult to orthopedic surgery, recommendations appreciated 2. Burst fracture of L1 * Suspect onset with acute stroke as noted above * Pt does not appear to have any acute pain * May benefit from brace if any issues with mobility in therapy 3. Left ovarian mass * 3.3 cm mass in the left ovary likely benign, less likely malignant * Recommendations for pelvic ultrasound, patient and request this to be deferred at this time * Has previously had extensive workup for ovarian mass at [facility] 4. Wall thickening of the rectum with surrounding fat stranding, consistent with proctitis * Doubt infectious etiology based on clinical presentation * Will obtain stool cultures including C diff as patient's reports loose stool, although this is less likely * Will check stool for occult blood (3) Abnormal urinalysis: Code(s): R82.90 - Unspecified abnormal findings in urine Status: Acute Assessment and Plan: UA grossly abnormal, concerning for infection, though patient does have chronic indwelling Bravo * Continue with empiric Rocephin * Urine culture pending * Blood cultures pending (4) Hematuria: Code(s): R31.9 - Hematuria, unspecified Status: Acute Assessment and Plan: UA on admission with 3+ blood and >100 RBC * CT of the abdomen/pelvis negative for urolithiasis. Does reveal 9 mm renal cyst which may possibly contribute, however less likely * Perhaps secondary to trauma from chronic indwelling Bravo catheter * Urine is marisela colored at this time * Continue with treatment for UTI * Consider repeat UA upon resolution of infection to assess for resolution of hematuria (5) Recent cerebrovascular accident: Code(s): Z86.73 - Personal history of transient ischemic attack (TIA), and cerebral infarction without residual deficits Status: Acute Assessment and Plan: Currently undergoing rehab at [facility] (6) Paroxysmal atrial fibrillation: Code(s): I48.0 - Paroxysmal atrial fibrillation Status: Acute Assessment and Plan: Rate is controlled at this time * Continue home amiodarone * Continue home Eliquis. Hematuria appears resolved. Plan Continue tube feedings. Consult to dietitian for recommendations per family request Continue CPAP overnight Time Spent With Patient Time
--- NOTE | 2022-11-23 12:33 | PM.IMPN ---
Progress Note: A&P Assessment and Plan (1) Left lower lobe pneumonia: Code(s): J18.9 - Pneumonia, unspecified organism Status: Acute Assessment and Plan: CXR with left lower lobe airspace disease compatible with pneumonia. Continue ceftriaxone and azithromycin Blood cultures pending Sputum culture ordered, awaiting collection COVID and influenza negative Will check urinary Legionella and pneumococcal antigens Supportive care. Bronchodilators, incentive spirometry, Cornet valve (pt will need assistance and reminders to use) Leukocytosis markedly improved (23.3-->11.2) (2) Abnormal computed tomography of abdomen and pelvis: Code(s): R93.5 - Abnormal findings on diagnostic imaging of other abdominal regions, including retroperitoneum Status: Acute Assessment and Plan: Several abnormalities noted on CT of the abdomen/pelvis 1. Subcapital fracture of right femoral neck Reportedly not previously addressed. Unclear chronicity. Suspect secondary to fall/collapse on 10/27/2022 onset of acute stroke. Patient's found her on the ground, on her right side and reported subsequent bruising to the right hip Consult to orthopedic surgery, recommendations appreciated 2. Burst fracture of L1 Suspect onset with acute stroke as noted above Pt does not appear to have any acute pain May benefit from brace if any issues with mobility in therapy 3. Left ovarian mass 3.3 cm mass in the left ovary likely benign, less likely malignant Recommendations for pelvic ultrasound, patient and request this to be deferred at this time Has previously had extensive workup for ovarian mass at [facility] 4. Wall thickening of the rectum with surrounding fat stranding, consistent with proctitis Doubt infectious etiology based on clinical presentation Will obtain stool cultures including C diff as patient's reports loose stool, although this is less likely Will check stool for occult blood (3) Abnormal urinalysis: Code(s): R82.90 - Unspecified abnormal findings in urine Status: Acute Assessment and Plan: UA grossly abnormal, concerning for infection, though patient does have chronic indwelling Bravo Continue with empiric Rocephin Urine culture pending Blood cultures pending (4) Hematuria: Code(s): R31.9 - Hematuria, unspecified Status: Acute Assessment and Plan: UA on admission with 3+ blood and >[address] of the abdomen/pelvis negative for urolithiasis. Does reveal 9 mm renal cyst which may possibly contribute, however less likely Perhaps secondary to trauma from chronic indwelling Bravo catheter Urine is marisela colored at this time Continue with treatment for UTI Consider repeat UA upon resolution of infection to assess for resolution of hematuria (5) Recent cerebrovascular accident: Code(s): Z86.73 - Personal history of transient ischemic attack (TIA), and cerebral infarction without residual deficits Status: Acute Assessment and Plan: Currently undergoing rehab at [facility] (6) Paroxysmal atrial fibrillation: Code(s): I48.0 - Paroxysmal atrial fibrillation Status: Acute Assessment and Plan: Rate is controlled at this time Continue home amiodarone Continue home Eliquis. Hematuria appears resolved. Plan Continue tube feedings. Consult to dietitian for recommendations per family request Continue CPAP overnight Time Spent With Patient Time: 60 minutes Time with patient: Greater than 35 minutes Subjective Date/time seen: 11/23/22 12:33 Interval history: Date of service: 11/23/2022 Shelly Mims is a 77-year-old female with history of recent right frontal subarachnoid hemorrhage, left temporal intraparenchymal hemorrhage, left frontal ischemic stroke (10/27/2022), dementia, paroxysmal atrial fibrillation on anticoagulation, hypertension, SALLY, recent falls who is seen in follow
--- NOTE | 2022-11-23 14:26 | PCDIET ---
Rest[facility]: Bolus feedings of Jevity 1.5 - 280ml QID with 100ml flush before and after each feed. Totals = 1680kcals, 71g protein, 1651ml.
--- NOTE | 2022-11-23 17:28 | PM.CNOR ---
Assessment and Plan Assessment and plan (1) Fracture of femoral neck, right: Qualifiers: Encounter type: initial encounter Fracture type: closed Qualified Code(s): S72.001A - Fracture of unspecified part of neck of right femur, initial encounter for closed fracture Code(s): S72.001A - Fracture of unspecified part of neck of right femur, initial encounter for closed fracture Status: Acute (2) Compression fracture of L1 lumbar vertebra: Qualifiers: Encounter type: initial encounter Qualified Code(s): S32.010A - Wedge compression fracture of first lumbar vertebra, initial encounter for closed fracture Code(s): S32.010A - Wedge compression fracture of first lumbar vertebra, initial encounter for closed fracture Status: Acute Plan Moderately displaced femoral neck fracture appears to be subacute. Likely occurred when she fell last month. Possibly nondisplaced fracture with moderate subsequent displacement. Evidence of healing radiographically. She does not appear to be in pain or complain of pain. I had a brent discussion with her . Given her medical comorbidities and risks of surgery we agree to treat non operatively. Although there is a risk of further displacement or arthritis, a reasonable functional result is expected. Hip replacement can be considered at a later date as needed. She may bear weight as tolerated with therapy. The L1 compression fracture is also likely subacute. I will order a lumbar orthosis for the L1 compression fracture. She may wear this when out of bed for support and comfort. History of Present Illness HPI Consult date: 11/23/22 Consult reason: fracture Chief complaint: Right hip fracture Narrative: 77-year-old female suffered a stroke last month. She has been in [facility]. Admitted with pneumonia and weakness. Denies hip pain. Was noted to have a bruise on the hip when she had her stroke. History obtained from her as the patient is nonverbal. [facility] Past Medical History Medical History (Updated 11/23/22 @ 17:38 by Glenn Moreland MD) Adult BMI <19 kg/sq m BMI 20.0-20.9, adult Cataracts, bilateral Chronic anticoagulation Cognitive dysfunction Dementia Dementia Encounter to establish care Follow up Fracture of femoral neck, right Hypertension Impaired functional mobility, balance, gait, and endurance Intraparenchymal hemorrhage of brain Ischemic cerebrovascular accident (CVA) Obstructive sleep apnea on CPAP On press tender long goods drug therapy Orthostatic hypertension Osteoporosis Paroxysmal atrial fibrillation Pre-diabetes Scoliosis Small vessel disease Subarachnoid hemorrhage SVT (supraventricular tachycardia) Syncopal episodes Syncope Tachycardia Unintentional weight loss Surgical History Surgical History H/O wrist surgery History of cholecystectomy History of laparoscopic cholecystectomy History of percutaneous endoscopic gastrostomy Family History Family History Father Alzheimer's dementia Mother Dementia Bladder infection Mother , sepsis- bladder infection Dementia Sibling No problems noted. Social History Social History Social History: Surrogate medical decision maker: Kaylynn Jurado, . Code status: Full code. 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
[2022-11-23 23:48] LABS: Glucose Point of Care 141 mg/dl (65-105)
[2022-11-24] VITALS (21 sets, daily range): BP systolic 131–150; BP diastolic 74–82; PULSE 72–139; RESP 14–24; TEMP 36.4–36.8; O2SAT 96–98
[2022-11-24] MEDS: IPRATROPIUM BR 0.02% INH SOLN 0.5 MG/2.5 ML VIAL INHALATION ×4 (02:48→20:29)
[2022-11-24] MEDS: LEVALBUTEROL NEB 1.25 MG/3 ML INHALATION ×4 (02:49→20:29)
[2022-11-24] MEDS: ACETAMINOPHEN 325 MG TABLET 650 MG FEED TUBE ×4 (05:58→23:19)
[2022-11-24 06:01] LABS: Glucose Point of Care 120 mg/dl (65-105)
[2022-11-24 06:33] LABS: Hematocrit 35.4 % (37.0-47.0); Mean Corpuscular HGB Conc 31.1 g/dl (32-36); Mean Corpuscular Volume 83.7 fl (80-100); Mean Platelet Volume 11.5 fl (7.4-10.4); Platelet Count Result 355 k/mm3 (150-375); Red Blood Count 4.23 M/mm3 (4.2-5.4); Red Cell Distribution Width 19.9 % (11.5-14.5); White Blood Count 11.7 K/mm3 (4.5-10.0)
[2022-11-24 06:41] LABS: Anion Gap 3 mmol/L (8-16); Blood Urea Nitrogen 11 mg/dL (7-17); Calcium 8.3 mg/dL (8.4-10.2); Carbon Dioxide 28 mmol/L (22-30); Chloride 104 mmol/L (98-107); Estimated CRCL calculation 65 ml/min; Estimated Glomerular Filt Rate > 60; Glucose 120 mg/dL (65-110); Potassium 3.4 mmol/L (3.4-5.0); Sodium 135 mmol/L (137-145)
[2022-11-24] MEDS: polyethylene glycoL 3350 17 GM POWD.PACK PO (09:40)
[2022-11-24] MEDS: amLODIPine BESYLATE 5 MG TABLET FEED TUBE (09:40)
[2022-11-24] MEDS: RIVASTIGMINE TARTRATE 1.5 MG CAPSULE 3 MG FEED TUBE ×2 (09:40→17:44)
[2022-11-24] MEDS: MEMANTINE 10 MG TABLET FEED TUBE (09:40)
[2022-11-24] MEDS: METOPROLOL TARTRATE 50 MG TAB FEED TUBE ×2 (09:40→17:44)
[2022-11-24] MEDS: APIXABAN 5 MG TABLET FEED TUBE ×2 (09:40→21:11)
[2022-11-24] MEDS: AZITHROMYCIN 500 MG/NS 250 ML 500 MG/250 ML BAG 250 MG IVPB (10:15)
--- NOTE | 2022-11-24 11:47 | PCNFU ---
Nutrition Follow-Up Complete: Swallowing difficulty related to dysphagia as evidenced by need for tube feedings for full nutrition support. Goal:Meet estimated needs Pt current nutrition is TF: Jevity 1.5 bolus feeds of 280ml QID with 200ml flushes. Totals:1680kcals, 71g protein. 1651ml. Nutrition recommendation: Consider increasing bolus amount to 300ml QID- totals 1800kcals total per day. Last recorded weight is 51.9 kg. Bowel Motility: No BM recorded at this time Labs Reviewed: Hgb:111, HCT:35.4, Na:135, Cr:0.5 Meds Noted: Phamquzane campos Skin: WNL Additional Notes: Pt is on previous tube feeding regimen and tolerating well, no residuals. at bedside and asking about possibly increasing tube feeds due to low weight and lack of strength. Informed him that current regimen is meeting pt's estimated needs which are calculated to promote weight gain, but discussed increasing volume by just 20-40ml per feeding if preferred. Recommend to increase to 300ml QID. This would put pt at 1800kcals per day. Monitor tube feedings, tolerance, wt, labs. Follow up every Wednesday and Wednesday.
--- NOTE | 2022-11-24 11:56 | PCDIET ---
Recommend to consider increasing bolus feedings to 300ml QID. This provides 1800kcals total per day.
[2022-11-24 13:05] LABS: Glucose Point of Care 137 mg/dl (65-105)
--- NOTE | 2022-11-24 13:48 | ECG_ITS ---
Measurements Intervals [place] Rate: 138 P: VT: 0 QRS: 35 QRSD: 91 T: 151 QT: 330 QTc: 502 Interpretive Statements ATRIAL FLUTTER/TACHYCARDIA WITH RAPID VENTRICULAR RESPONSE ST DEVIATION AND MODERATE T-WAVE ABNORMALITY, CONSIDER LATERAL ISCHEMIA [-0.1+ mV T WAVE IN I/aVL/V5/V6] COMPARED TO ECG 11/22/2022 13:49:29 ATRIAL FLUTTER NOW PRESENT Electronically Signed On 11-24-2022 17:10:10 CDT by Tab Teague M.D.
--- NOTE | 2022-11-24 13:52 | P.PNIM_ITS ---
Progress Note: A&P Assessment and Plan (1) Left lower lobe pneumonia: Code(s): J18.9 - Pneumonia, unspecified organism Status: Acute Assessment and Plan: CXR with left lower lobe airspace disease compatible with pneumonia. * Continue ceftriaxone and azithromycin * Blood cultures pending, negative to date * Sputum culture ordered, awaiting collection * COVID and influenza negative * Urinary Legionella and pneumococcal antigens ordered, awaiting collection * Supportive care. Bronchodilators, incentive spirometry, Cornet valve (pt will need assistance and reminders to use) * Leukocytosis markedly improved (23.3-->11.7) (2) Abnormal computed tomography of abdomen and pelvis: Code(s): R93.5 - Abnormal findings on diagnostic imaging of other abdominal regions, including retroperitoneum Status: Acute Assessment and Plan: Several incidental findings noted on CT of the abdomen/pelvis 1. Subcapital fracture of right femoral neck * Reportedly not previously addressed. Unclear chronicity. * Suspect subacute secondary to fall/collapse on 10/27/2022 onset of acute stroke. Patient's found her on the ground, on her right side and reported subsequent bruising to the right hip * Consult to orthopedic surgery, recommendations appreciated - recommend co nservative management 2. Burst fracture of L1 * Suspect subacute, onset at time of acute stroke as noted above * Pt does not appear to have any acute pain * Appreciate orthopedic surgery recommendations * Has been fitted for lumbar brace, wear when out of bed 3. Left ovarian mass * 3.3 cm mass in the left ovary likely benign, less likely malignant * Recommendations for pelvic ultrasound, patient and request this to be deferred at this time * Has previously had extensive workup for ovarian mass at [facility] 4. Wall thickening of the rectum with surrounding fat stranding, consistent with proctitis * Doubt infectious etiology based on clinical presentation * Will obtain stool cultures including C diff as patient's reports loose stool, although this is less likely -awaiting collection * Stool occult blood test pending (3) Abnormal urinalysis: Code(s): R82.90 - Unspecified abnormal findings in urine Status: Acute Assessment and Plan: UA grossly abnormal, concerning for infection, though patient does have chronic indwelling Bravo * Urine culture with mixed genital linda, not indicative of infection * Patient is maintained on empiric Rocephin for pneumonia as above (4) Hematuria: Code(s): R31.9 - Hematuria, unspecified Status: Resolved Assessment and Plan: UA on admission with 3+ blood and >100 RBC * CT of the abdomen/pelvis negative for urolithiasis. Does reveal 9 mm renal cyst which may possibly contribute, however less likely * Perhaps secondary to trauma from chronic indwelling Bravo catheter * Urine is straw colored at this time (5) Recent cerebrovascular accident: Code(s): Z86.73 - Personal history of transient ischemic attack (TIA), and cerebral infarction without residual deficits Status: Acute Assessment and Plan: Currently undergoing rehab at [facility] (6) Paroxysmal atrial fibrillation: Code(s): I48.0 - Paroxysmal atrial fibrillation Status: Acute Assessment and Plan: Rate is controlled at this time * Continue home amiodarone * Continue home Eliquis. Hematuria appears resolved. Plan Continue tube feedings. Consult to dietitian for recommendations per family
--- NOTE | 2022-11-24 13:52 | PM.IMPN ---
Progress Note: A&P Assessment and Plan (1) Left lower lobe pneumonia: Code(s): J18.9 - Pneumonia, unspecified organism Status: Acute Assessment and Plan: CXR with left lower lobe airspace disease compatible with pneumonia. Continue ceftriaxone and azithromycin Blood cultures pending, negative to date Sputum culture ordered, awaiting collection COVID and influenza negative Urinary Legionella and pneumococcal antigens ordered, awaiting collection Supportive care. Bronchodilators, incentive spirometry, Cornet valve (pt will need assistance and reminders to use) Leukocytosis markedly improved (23.3-->11.7) (2) Abnormal computed tomography of abdomen and pelvis: Code(s): R93.5 - Abnormal findings on diagnostic imaging of other abdominal regions, including retroperitoneum Status: Acute Assessment and Plan: Several incidental findings noted on CT of the abdomen/pelvis 1. Subcapital fracture of right femoral neck Reportedly not previously addressed. Unclear chronicity. Suspect subacute secondary to fall/collapse on 10/27/2022 onset of acute stroke. Patient's found her on the ground, on her right side and reported subsequent bruising to the right hip Consult to orthopedic surgery, recommendations appreciated - recommend conservative management 2. Burst fracture of L1 Suspect subacute, onset at time of acute stroke as noted above Pt does not appear to have any acute pain Appreciate orthopedic surgery recommendations Has been fitted for lumbar brace, wear when out of bed 3. Left ovarian mass 3.3 cm mass in the left ovary likely benign, less likely malignant Recommendations for pelvic ultrasound, patient and request this to be deferred at this time Has previously had extensive workup for ovarian mass at [facility] 4. Wall thickening of the rectum with surrounding fat stranding, consistent with proctitis Doubt infectious etiology based on clinical presentation Will obtain stool cultures including C diff as patient's reports loose stool, although this is less likely -awaiting collection Stool occult blood test pending (3) Abnormal urinalysis: Code(s): R82.90 - Unspecified abnormal findings in urine Status: Acute Assessment and Plan: UA grossly abnormal, concerning for infection, though patient does have chronic indwelling Bravo Urine culture with mixed genital linda, not indicative of infection Patient is maintained on empiric Rocephin for pneumonia as above (4) Hematuria: Code(s): R31.9 - Hematuria, unspecified Status: Resolved Assessment and Plan: UA on admission with 3+ blood and >[address] of the abdomen/pelvis negative for urolithiasis. Does reveal 9 mm renal cyst which may possibly contribute, however less likely Perhaps secondary to trauma from chronic indwelling Bravo catheter Urine is straw colored at this time (5) Recent cerebrovascular accident: Code(s): Z86.73 - Personal history of transient ischemic attack (TIA), and cerebral infarction without residual deficits Status: Acute Assessment and Plan: Currently undergoing rehab at [facility] (6) Paroxysmal atrial fibrillation: Code(s): I48.0 - Paroxysmal atrial fibrillation Status: Acute Assessment and Plan: Rate is controlled at this time Continue home amiodarone Continue home Eliquis. Hematuria appears resolved. Plan Continue tube feedings. Consult to dietitian for recommendations per family request Continue CPAP overnight Subjective Date/time seen: 11/24/22 13:52 Interval history: Date of service: 11/24/2022 Shelly Mims is a 77-year-old female with history of recent right frontal subarachnoid hemorrhage, left temporal intraparenchymal hemorrhage, left frontal ischemic stroke (10/27/2022), dementia, paroxysmal atrial fibrillation on anticoagulation, hypertension, SALLY, recent falls who is see
[2022-11-24] MEDS: METOPROLOL TARTRATE INJ 5 MG/5 ML VIAL IV PUSH ×2 (13:55→16:05)
--- NOTE | 2022-11-24 19:02 | PC.NURSE ---
Pt is nonverbal female, post CVA in October 2022. Pt was at [facility] when noticed her getting weaker. Pt has history of Afib with RVR. Pt has PEG tube that was placed post CVA. Pt is gravity/bolus fed. Pt gets 100mL flush, 300mL Jevity 1.5, 100 mL flush. Pt tolerates well. Pt has elevated heart rate. Provider notified and 5 metoprolol was ordered. Pt heart rate did not come down and 5 more metoprolol was ordered. Pt heart rate continues to be elevated. Provider contacted and erich olson ordered with orders to transfer to IMU. SBAR sent to IMU will call report and transport pt.
[2022-11-24] MEDS: dilTIAZem 100 MG/100 ML 100 MG/100 ML BAG IV CONT (19:53)
--- NOTE | 2022-11-25 17:24 | PC.NURSE ---
Paper documentation exists on this patient due to [employer] downtime on 11/25/22 from 00:30 to 17:30.
[2022-11-25 20:00] VITALS: BP 110/87; PULSE 128; PULSE 131; RESP 20; RESP 24; TEMP 36.4; O2SAT 96; O2SAT 98
[2022-11-25 20:05] VITALS: PULSE 127; RESP 24; O2SAT 96
[2022-11-25] MEDS: IPRATROPIUM BR 0.02% INH SOLN 0.5 MG/2.5 ML VIAL INHALATION (20:08)
[2022-11-25] MEDS: LEVALBUTEROL NEB 1.25 MG/3 ML INHALATION (20:08)
[2022-11-25 20:26] VITALS: PULSE 125; RESP 24
[2022-11-25 20:36] VITALS: PULSE 129
[2022-11-25] MEDS: METOPROLOL TARTRATE 50 MG TAB PO (20:36)
[2022-11-25] MEDS: APIXABAN 5 MG TABLET FEED TUBE (20:36)
[2022-11-25 23:15] VITALS: PULSE 130; RESP 24; O2SAT 96
[2022-11-25 23:26] VITALS: BP 125/96; PULSE 137; RESP 20; TEMP 36.6; O2SAT 97
[2022-11-26] VITALS (27 sets, daily range): BP systolic 107–160; BP diastolic 50–88; PULSE 80–135; RESP 16–24; TEMP 36.2–36.7; O2SAT 95–100; BMI 10.0
[2022-11-26] MEDS: ACETAMINOPHEN 325 MG TABLET 650 MG FEED TUBE ×5 (00:01→23:34)
[2022-11-26] MEDS: MELATONIN 3 MG TABLET FEED TUBE (00:06)
[2022-11-26] MEDS: IPRATROPIUM BR 0.02% INH SOLN 0.5 MG/2.5 ML VIAL INHALATION ×4 (02:19→20:37)
[2022-11-26] MEDS: LEVALBUTEROL NEB 1.25 MG/3 ML INHALATION ×4 (02:19→20:37)
[2022-11-26 04:58] LABS: Hematocrit 35.4 % (37.0-47.0); Hemoglobin 10.9 g/dL (12.0-15.0); Mean Corpuscular HGB Conc 30.8 g/dl (32-36); Mean Corpuscular Hemoglobin 26.4 pg (26-34); Mean Corpuscular Volume 85.7 fl (80-100); Mean Platelet Volume 11.5 fl (7.4-10.4); Platelet Count Result 298 k/mm3 (150-375); Red Blood Count 4.13 M/mm3 (4.2-5.4); Red Cell Distribution Width 19.9 % (11.5-14.5); White Blood Count 9.9 K/mm3 (4.5-10.0)
[2022-11-26 06:35] LABS: Anion Gap 7 mmol/L (8-16); Blood Urea Nitrogen 19 mg/dL (7-17); Calcium 8.8 mg/dL (8.4-10.2); Carbon Dioxide 27 mmol/L (22-30); Chloride 101 mmol/L (98-107); Estimated CRCL calculation 65 ml/min; Estimated Glomerular Filt Rate > 60; Glucose 111 mg/dL (65-110); Potassium 4.3 mmol/L (3.4-5.0); Sodium 135 mmol/L (137-145)
[2022-11-26] MEDS: RIVASTIGMINE TARTRATE 1.5 MG CAPSULE 3 MG FEED TUBE ×2 (08:06→18:18)
[2022-11-26] MEDS: MEMANTINE 10 MG TABLET FEED TUBE (08:06)
[2022-11-26] MEDS: APIXABAN 5 MG TABLET FEED TUBE ×2 (08:06→20:23)
[2022-11-26] MEDS: polyethylene glycoL 3350 17 GM POWD.PACK PO (08:06)
[2022-11-26] MEDS: AMIODARONE HCL 200 MG TABLET PO (08:06)
[2022-11-26] MEDS: amLODIPine BESYLATE 5 MG TABLET FEED TUBE (08:07)
[2022-11-26] MEDS: METOPROLOL TARTRATE 50 MG TAB PO ×2 (08:07→20:24)
[2022-11-26] MEDS: AZITHROMYCIN 500 MG/NS 250 ML 500 MG/250 ML BAG 250 MG IVPB (08:28)
[2022-11-26] MEDS: AMIODARONE HCL 200 MG TABLET FEED TUBE (09:15)
[2022-11-26] MEDS: AMIODARONE 360 MG/D5W 200 ML 360 MG/200 ML BAG 33.33 MG IV CONT ×2 (09:20→23:30)
--- NOTE | 2022-11-26 10:11 | PM.PNCARD ---
Progress Note: A&P Assessment and Plan (1) Atrial flutter with rapid ventricular response: Code(s): I48.92 - Unspecified atrial flutter Status: Acute Assessment and Plan: Unfortunately, heart rate poorly controlled overnight and this morning. Will discontinue oral amiodarone after initial dose this morning and initiate IV amiodarone infusion for improved heart rate control. Continue metoprolol tartrate 50 mg twice daily for now. May need up titrate further but caution to avoid prolonged pauses and/or symptomatic bradycardia. Continue systemic anticoagulation with Eliquis 5 mg twice daily. We discussed the risks and benefits in this regard with patient's was at bedside and patient. They both agreed. (2) Recurrent syncope: Code(s): R55 - Syncope and collapse Status: Acute Assessment and Plan: Etiology remains unclear but concerning for pauses and or intermittent bradycardia although this has yet to be identified with exception of 2nd pause in atrial flutter but not associated with syncope. We discussed this at length probable loop recorder implantation advised, however, I feel that holding Eliquis to reduce bleeding complication risk with implantation is not in her best interest at this time given her recent stroke. Will pursue further workup in this regard as an outpatient. (3) Recent cerebrovascular accident: Code(s): Z86.73 - Personal history of transient ischemic attack (TIA), and cerebral infarction without residual deficits Status: Acute Assessment and Plan: In addition to traumatic subdural hematoma patient did suffer an acute ischemic stroke very likely from her atrial flutter. Hence, initiation of systemic anticoagulation at discharge prior hospitalization to which she seems to be tolerating well at this time. Patient is a poor candidate for longer-term anticoagulation and left atrial appendage occlusion device considerations strongly recommended. Patient's has verbalized understanding and is in full agreement with this plan of care and will be pursued as an outpatient with referral to Dr. Frausto when she is further recovered from this episode of care. Continue Eliquis 5 mg twice daily for stroke risk reduction for the time being. (4) Left lower lobe pneumonia: Code(s): J18.9 - Pneumonia, unspecified organism Status: Acute Assessment and Plan: Continue antibiotics with azithromycin, ceftriaxone managed per primary service. Patient clinically improving in this regard. (5) Traumatic subdural hematoma: Qualifiers: Encounter type: sequela Loss of consciousness presence/duration: with LOC of unspecified duration Qualified Code(s): S06.5X9S - Traumatic subdural hemorrhage with loss of consciousness of unspecified duration, sequela Code(s): S06.5XAA - Traumatic subdural hemorrhage with loss of consciousness status unknown, initial encounter Status: Acute Assessment and Plan: As above, secondary to recurrent syncopal episode with fall and head injury prior to this hospitalization. (6) Hypertension: Qualifiers: Hypertension type: primary hypertension Qualified Code(s): I10 - Essential (primary) hypertension Code(s): I10 - Essential (primary) hypertension Status: Acute Assessment and Plan: BP stable. She remains on amlodipine 5 mg per tube daily. Continue for now. 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 Monitor for any signs of bleeding or new neurologic decline given recent history of subdural hematoma. If noted, repeat CT head STAT. Subjective Date/time seen: Date of service: 11/26/22 10:11 Follow-up for atrial flutter with rapid ventricular response Interval history: Heart rate poorly controlled overnight up to t
--- NOTE | 2022-11-26 12:10 | PCPTNOTE ---
On 11/26/22, the student, [Debra Lira], provided care and completed [facility] documentation on this patient. I have reviewed the student's documentation and agree with the findings.
--- NOTE | 2022-11-26 12:27 | PM.IMPN ---
Progress Note: A&P Assessment and Plan (1) Left lower lobe pneumonia: Code(s): J18.9 - Pneumonia, unspecified organism Status: Acute Assessment and Plan: CXR with left lower lobe airspace disease compatible with pneumonia. Continue ceftriaxone and azithromycin Blood cultures pending, negative to date Sputum culture ordered, awaiting collection COVID and influenza negative Urinary Legionella and pneumococcal antigens ordered, awaiting collection Supportive care. Bronchodilators, incentive spirometry, Cornet valve (pt will need assistance and reminders to use) Leukocytosis markedly improved (23.3-->11.7) 11/26/2022: Shelly Mims is a 77-year-old female with history of recent right frontal subarachnoid hemorrhage, left temporal intraparenchymal hemorrhage, left frontal ischemic stroke (10/27/2022) with associated aphasia dysphagia and right-sided weakness status post PEG tube placement and tube feed, dementia, paroxysmal atrial fibrillation on anticoagulation, hypertension, SALLY, recent falls presented with increased weakness and poor coordination. She was admitted to the rehab facility and undergoing therapy. Her workup in the ER revealed leukocytosis of 23.3 lactic acid of 2.6. Chest x-ray with left lower lobe airspace disease compatible with pneumonia. Negative for influenza and COVID. UA was positive for UTI. CT abdomen and pelvis with airspace and ground-glass opacity in the left lung lower lobe consistent with atelectasis versus pneumonia. Small left pleural effusion. Wall thickening of the rectum with surrounding fat stranding consistent with proctitis. Follow-up hip x-ray with acute subcapital fracture of the right femoral neck. EKG showed atrial flutter/tachycardia with rapid ventricular response. Leukocytosis has since resolved. Blood culture negative to date. Urine culture with mixed genital linda. Patient treated with ceftriaxone and azithromycin. She has been on apixaban. Amiodarone drip has been started. Orthopedics that consulted plan for non operative treatment. Likely subacute from her fall last month. L1 compression fracture is likely subacute and suggested lumbar orthosis. Consider left atrial appendage occlusion device as an outpatient basis as poor candidate for long-term anticoagulation. Back to sinus rhythm this afternoon on amiodarone IV drip switch antibiotics to oral Augmentin (2) Abnormal computed tomography of abdomen and pelvis: Code(s): R93.5 - Abnormal findings on diagnostic imaging of other abdominal regions, including retroperitoneum Status: Acute Assessment and Plan: Several incidental findings noted on CT of the abdomen/pelvis 1. Subcapital fracture of right femoral neck Reportedly not previously addressed. Unclear chronicity. Suspect subacute secondary to fall/collapse on 10/27/2022 onset of acute stroke. Patient's found her on the ground, on her right side and reported subsequent bruising to the right hip Consult to orthopedic surgery, recommendations appreciated - recommend conservative management 2. Burst fracture of L1 Suspect subacute, onset at time of acute stroke as noted above Pt does not appear to have any acute pain Appreciate orthopedic surgery recommendations Has been fitted for lumbar brace, wear when out of bed 3. Left ovarian mass 3.3 cm mass in the left ovary likely benign, less likely malignant Recommendations for pelvic ultrasound, patient and request this to be deferred at this time Has previously had extensive workup for ovarian mass at [facility] 4. Wall thickening of the rectum with surrounding fat stranding, consistent with proctitis Doubt infectious etiology based on clinical presentation Will obtain stool cultures including C diff as patient's reports loose stool, although this is less likely -awaiting collection Stool occult blood test pending (3) Abnormal urinalysis: Code(s): R82.90 - Unspeci
[2022-11-26 12:28] LABS: Anion Gap 4 mmol/L (8-16); Blood Urea Nitrogen 13 mg/dL (7-17); Carbon Dioxide 29 mmol/L (22-30); Chloride 102 mmol/L (98-107); Estimated CRCL calculation 65 ml/min; Estimated Glomerular Filt Rate > 60; Potassium 3.5 mmol/L (3.4-5.0); Sodium 135 mmol/L (137-145)
[2022-11-26 12:29] LABS: Calcium 8.1 mg/dL (8.4-10.2); Glucose 115 mg/dL (65-110)
--- NOTE | 2022-11-26 12:49 | ECG_ITS ---
Measurements Intervals [place] Rate: 83 P: 79 OR: 179 QRS: 19 QRSD: 86 T: 107 QT: 401 QTc: 472 Interpretive Statements SINUS RHYTHM LEFT ATRIAL ENLARGEMENT [-0.15mV P WAVE IN V1/V2] LEFT VENTRICULAR HYPERTROPHY AND ST-T CHANGE [VOLTAGE CRITERIA PLUS ST/T ABNORMALITY] COMPARED TO ECG 11/24/2022 14:03:47 SINUS RHYTHM NOW PRESENT Electronically Signed On 11-26-2022 14:06:50 CDT by Tab eTague M.D.
[2022-11-26] MEDS: AMIODARONE 360 MG/D5W 200 ML 360 MG/200 ML BAG 16.67 MG IV CONT (16:10)
[2022-11-26] MEDS: AMIODARONE 150 MG/D5W 100 ML 150 MG/100 ML BAG 600 MG IV CONT (18:41)
[2022-11-26 19:56] LABS: IFOB Positive Control Positive; Immunochemical Fecal Occult Bl Negative (N)
[2022-11-27] VITALS (26 sets, daily range): BP systolic 124–146; BP diastolic 52–93; PULSE 66–117; RESP 16–20; TEMP 36.4–36.6; O2SAT 95–100
[2022-11-27] MEDS: LEVALBUTEROL NEB 1.25 MG/3 ML INHALATION ×4 (02:17→20:45)
[2022-11-27] MEDS: IPRATROPIUM BR 0.02% INH SOLN 0.5 MG/2.5 ML VIAL INHALATION ×4 (02:17→20:44)
[2022-11-27 03:31] LABS: Hematocrit 31.7 % (37.0-47.0); Mean Corpuscular HGB Conc 31.5 g/dl (32-36); Mean Corpuscular Hemoglobin 26.6 pg (26-34); Mean Corpuscular Volume 84.3 fl (80-100); Platelet Count Result 287 k/mm3 (150-375); Red Blood Count 3.76 M/mm3 (4.2-5.4); Red Cell Distribution Width 19.3 % (11.5-14.5); White Blood Count 7.9 K/mm3 (4.5-10.0)
[2022-11-27 03:41] LABS: Alanine Aminotransferase 29 U/L (6-35); Albumin Level 3.2 g/dL (3.5-5.1); Alkaline Phosphatase 88 U/L (38-126); Anion Gap 3 mmol/L (8-16); Aspartate Amino Transferase 24 U/L (14-36); Bilirubin,Total 0.4 mg/dL (0.2-1.3); Blood Urea Nitrogen 19 mg/dL (7-17); Calcium 8.2 mg/dL (8.4-10.2); Carbon Dioxide 32 mmol/L (22-30); Chloride 98 mmol/L (98-107); Estimated CRCL calculation 61 ml/min; Estimated Glomerular Filt Rate > 60; Glucose 116 mg/dL (65-110); Magnesium 2.2 mg/dL (1.6-2.3); Potassium 4.2 mmol/L (3.4-5.0); Sodium 133 mmol/L (137-145)
[2022-11-27] MEDS: AMIODARONE 360 MG/D5W 200 ML 360 MG/200 ML BAG 33.33 MG IV CONT ×3 (05:56→19:08)
[2022-11-27] MEDS: ACETAMINOPHEN 325 MG TABLET 650 MG FEED TUBE ×3 (05:57→18:41)
[2022-11-27] MEDS: amLODIPine BESYLATE 5 MG TABLET FEED TUBE (09:38)
[2022-11-27] MEDS: APIXABAN 5 MG TABLET FEED TUBE ×2 (09:41→20:31)
[2022-11-27] MEDS: RIVASTIGMINE TARTRATE 1.5 MG CAPSULE 3 MG FEED TUBE ×2 (09:41→18:41)
[2022-11-27] MEDS: MEMANTINE 10 MG TABLET FEED TUBE (09:41)
[2022-11-27] MEDS: METOPROLOL TARTRATE 50 MG TAB PO ×2 (09:41→20:31)
[2022-11-27] MEDS: AMOXICILLIN/CLAVULANATE K 875-125 MG TAB 1 TABLET PO ×2 (09:41→20:31)
--- NOTE | 2022-11-27 10:20 | PM.PNCARD ---
Progress Note: A&P Assessment and Plan (1) Atrial flutter with rapid ventricular response: Code(s): I48.92 - Unspecified atrial flutter Status: Acute Assessment and Plan: Continue IV amiodarone infusion for today, perhaps shift to p.o. amiodarone tomorrow. Continue metoprolol tartrate 50 mg twice daily for now. May need up titrate further but caution to avoid prolonged pauses and/or symptomatic bradycardia. Continue systemic anticoagulation with Eliquis 5 mg twice daily. Discussed eventual LAAO procedure. (2) Recurrent syncope: Code(s): R55 - Syncope and collapse Status: Acute Assessment and Plan: Etiology remains unclear but concerning for pauses and or intermittent bradycardia. Discussed outpatient loop recorder. (3) Recent cerebrovascular accident: Code(s): Z86.73 - Personal history of transient ischemic attack (TIA), and cerebral infarction without residual deficits Status: Acute Assessment and Plan: In addition to traumatic subdural hematoma patient did suffer an acute ischemic stroke very likely from her atrial flutter. Hence, initiation of systemic anticoagulation at discharge prior hospitalization to which she seems to be tolerating well at this time. Patient is a poor candidate for longer-term anticoagulation and left atrial appendage occlusion device considerations strongly recommended. (4) Left lower lobe pneumonia: Code(s): J18.9 - Pneumonia, unspecified organism Status: Acute Assessment and Plan: Continue antibiotics with azithromycin, ceftriaxone managed per primary service. Patient clinically improving in this regard. (5) Traumatic subdural hematoma: Qualifiers: Encounter type: sequela Loss of consciousness presence/duration: with LOC of unspecified duration Qualified Code(s): S06.5X9S - Traumatic subdural hemorrhage with loss of consciousness of unspecified duration, sequela Code(s): S06.5XAA - Traumatic subdural hemorrhage with loss of consciousness status unknown, initial encounter Status: Acute Assessment and Plan: As above, secondary to recurrent syncopal episode with fall and head injury prior to this hospitalization. (6) Hypertension: Qualifiers: Hypertension type: primary hypertension Qualified Code(s): I10 - Essential (primary) hypertension Code(s): I10 - Essential (primary) hypertension Status: Acute Assessment and Plan: BP stable. She remains on amlodipine 5 mg per tube daily. Continue for now. 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 Monitor for any signs of bleeding or new neurologic decline given recent history of subdural hematoma. If noted, repeat CT head STAT. Subjective Date/time seen: 11/27/22 10:20 Cardiology follow up for atrial fibrillation Interval history: No acute events overnight. Back in sinus rhythm at the time of my visit but did have some AF RVR earlier this morning. Review of Systems Review of Systems: Remainder of the review of systems is otherwise negative aside from that noted in the HPI. All systems reviewed & are unremarkable except as noted in HPI and below Constitutional: Constitutional: Reports as per HPI and Reports no additional constitutional complaints Eyes: Eyes: Reports as per HPI and Reports no additional eye complaints ENT: Reports system reviewed and no additional complaints, except as documented and Reports as per HPI Cardiovascular: Cardiovascular: Reports as per HPI and Reports no additional cardiovascular complaints Respiratory: Respiratory: Reports as per HPI and Reports no additional respiratory complaints Gastrointestinal: Gastrointestinal: Reports as per HPI and Reports no additional gastrointestinal complaints Genitourinary: Yanely
--- NOTE | 2022-11-27 12:25 | PCSTNOTE ---
Bedside communication evaluation completed. Patient's present and participated in evaluation by providing background information and demonstrating cuing methods he uses to facilitate communication with patient. Patient presents with severe auditory comprehension and expressive language deficits. She communicated using facial expressions and limited occasional unsuccessful attempts to verbalize. Imitation of automatic speech (counting to 5) completed with maximum cues. Patient identified 2 objects out of three by gesturing toward object, not pointing. Reading/writing not assessed due to patient's fatigue level. Recommendations: speech therapy to treat severe communication impairment to increase patient's ability to functionally communicate. Swallowing ability not evaluated. Thank you for the referral of this patient. Please order bedside swallowing evaluation and modified barium swallow study for this patient if appropriate. Thank you for the referral of this patient. [ End ]
--- NOTE | 2022-11-27 13:22 | PCNFU ---
Nutrition Follow-Up Complete: Swallowing difficulty related to dysphagia as evidended by need for tube feedings for full nutrition support. Goal: Meet estimated needs - Goal being met with tube feeding Pt current nutrition is Jevity 1.5 bolus 280 ml QID with 100 ml flushes before and after each bolus. total 1680 kcal, 71 g protein, 1650 ml free water. Tolerating well. Nutrition recommendation: Continue with current tube feeding orders Last recorded weight is 56.6 kg. Up 2.6 kg since admission Bowel Motility: Last BM 11/26/22 Labs Reviewed: Hgb 10, Hct 31.7, Alb 3.2, BUN 19, Cre 0.6 Meds Noted:Eliquis, Zofran Skin: WNL Additional Notes: Aphasic after stroke. Tolerating tube feeds well. says she is ready to eat some food and looks forward to having ice cream. Continue with current orders. Monitor tube feedings, tolerance, wt, labs. Follow up every Wednesday and Wednesday.
--- NOTE | 2022-11-27 13:45 | PM.IMPN ---
Progress Note: A&P Assessment and Plan (1) Left lower lobe pneumonia: Code(s): J18.9 - Pneumonia, unspecified organism Status: Acute Assessment and Plan: CXR with left lower lobe airspace disease compatible with pneumonia. Continue ceftriaxone and azithromycin Blood cultures pending, negative to date Sputum culture ordered, awaiting collection COVID and influenza negative Urinary Legionella and pneumococcal antigens ordered, awaiting collection Supportive care. Bronchodilators, incentive spirometry, Cornet valve (pt will need assistance and reminders to use) Leukocytosis markedly improved (23.3-->11.7) 11/26/2022: Shelly Mims is a 77-year-old female with history of recent right frontal subarachnoid hemorrhage, left temporal intraparenchymal hemorrhage, left frontal ischemic stroke (10/27/2022) with associated aphasia dysphagia and right-sided weakness status post PEG tube placement and tube feed, dementia, paroxysmal atrial fibrillation on anticoagulation, hypertension, SALLY, recent falls presented with increased weakness and poor coordination. She was admitted to the rehab facility and undergoing therapy. Her workup in the ER revealed leukocytosis of 23.3 lactic acid of 2.6. Chest x-ray with left lower lobe airspace disease compatible with pneumonia. Negative for influenza and COVID. UA was positive for UTI. CT abdomen and pelvis with airspace and ground-glass opacity in the left lung lower lobe consistent with atelectasis versus pneumonia. Small left pleural effusion. Wall thickening of the rectum with surrounding fat stranding consistent with proctitis. Follow-up hip x-ray with acute subcapital fracture of the right femoral neck. EKG showed atrial flutter/tachycardia with rapid ventricular response. Leukocytosis has since resolved. Blood culture negative to date. Urine culture with mixed genital linda. Patient treated with ceftriaxone and azithromycin. She has been on apixaban. Amiodarone drip has been started. Orthopedics that consulted plan for non operative treatment. Likely subacute from her fall last month. L1 compression fracture is likely subacute and suggested lumbar orthosis. Consider left atrial appendage occlusion device as an outpatient basis as poor candidate for long-term anticoagulation. Back to sinus rhythm this afternoon on amiodarone IV drip switch antibiotics to oral Augmentin 11/27/2022: Shelly Mims is a 77-year-old female with history of recent right frontal subarachnoid hemorrhage, left temporal intraparenchymal hemorrhage, left frontal ischemic stroke (10/27/2022) with associated aphasia dysphagia and right-sided weakness status post PEG tube placement and tube feed, dementia, paroxysmal atrial fibrillation on anticoagulation, hypertension, SALLY, recent falls presented with increased weakness and poor coordination. She was admitted to the rehab facility and undergoing therapy. Her workup in the ER revealed leukocytosis of 23.3 lactic acid of 2.6. Chest x-ray with left lower lobe airspace disease compatible with pneumonia. Negative for influenza and COVID. UA was positive for UTI. CT abdomen and pelvis with airspace and ground-glass opacity in the left lung lower lobe consistent with atelectasis versus pneumonia. Small left pleural effusion. Wall thickening of the rectum with surrounding fat stranding consistent with proctitis. Follow-up hip x-ray with acute subcapital fracture of the right femoral neck. EKG showed atrial flutter/tachycardia with rapid ventricular response. Leukocytosis has since resolved. Blood culture negative to date. Urine culture with mixed genital linda. Patient treated with ceftriaxone and azithromycin. She has been on apixaban. Amiodarone drip has been started for AFib with RVR. Orthopedics that consulted plan for non operative treatment. Likely subacute from her fall last month. L1 compression fracture is likely subacute and suggested lumbar orthosis. Consider le
[2022-11-27 15:04] LABS: Mycoplasma IgM Antibody Titer 3072 U/mL (<770)
--- NOTE | 2022-11-27 16:22 | PCPTNOTE ---
On 11/27/22, the student, [Debra Lira], provided care and completed [facility] documentation on this patient. I have reviewed the student's documentation and agree with the findings.
[2022-11-28] VITALS (29 sets, daily range): BP systolic 121–153; BP diastolic 45–85; PULSE 66–120; RESP 18–23; TEMP 36–36.9; O2SAT 96–100
[2022-11-28] MEDS: ACETAMINOPHEN 325 MG TABLET 650 MG FEED TUBE ×4 (00:03→17:37)
[2022-11-28] MEDS: AMIODARONE 360 MG/D5W 200 ML 360 MG/200 ML BAG 33.33 MG IV CONT ×2 (01:16→06:57)
[2022-11-28] MEDS: LEVALBUTEROL NEB 1.25 MG/3 ML INHALATION ×4 (02:08→20:00)
[2022-11-28] MEDS: IPRATROPIUM BR 0.02% INH SOLN 0.5 MG/2.5 ML VIAL INHALATION ×4 (02:08→20:00)
[2022-11-28 04:07] LABS: Basophils Percent Auto 0.4 % (0.2-1.2); Eosinophils Absolute Auto 0.4 K/mm3 (0-0.3); Eosinophils Percent Auto 3.9 % (0-4.4); Hematocrit 30.8 % (37.0-47.0); Hemoglobin 9.5 g/dL (12.0-15.0); Immature Granulocyte Absolute 0.04 K/mm3 (0.00-0.031); Immature Granulocyte Percent A 0.4 % (0-0.5); Lymphocytes Absolute Auto 0.65 K/mm3 (0.9-3.2); Lymphocytes Percent Auto 6.6 % (18.3-44.2); Mean Corpuscular HGB Conc 30.8 g/dl (32-36); Mean Corpuscular Volume 84.4 fl (80-100); Mean Platelet Volume 11.8 fl (7.4-10.4); Monocytes Absolute Auto 0.8 K/mm3 (0.1-0.6); Monocytes Percent Auto 7.8 % (2.6-8.5); Neutrophils Percent Auto 80.9 % (45.5-73.1); Platelet Count Result 265 k/mm3 (150-375); Red Blood Count 3.65 M/mm3 (4.2-5.4); White Blood Count 9.9 K/mm3 (4.5-10.0)
[2022-11-28 04:21] LABS: Alanine Aminotransferase 27 U/L (6-35); Albumin Level 3.2 g/dL (3.5-5.1); Alkaline Phosphatase 93 U/L (38-126); Anion Gap 2 mmol/L (8-16); Aspartate Amino Transferase 30 U/L (14-36); Bilirubin,Total 0.3 mg/dL (0.2-1.3); Blood Urea Nitrogen 14 mg/dL (7-17); Carbon Dioxide 32 mmol/L (22-30); Chloride 99 mmol/L (98-107); Estimated CRCL calculation 87 ml/min; Estimated Glomerular Filt Rate > 60; Glucose 118 mg/dL (65-110); Magnesium 2.1 mg/dL (1.6-2.3); Potassium 3.9 mmol/L (3.4-5.0); Sodium 133 mmol/L (137-145)
[2022-11-28] MEDS: AZITHROMYCIN 250 MG TABLET 500 MG PO (08:56)
[2022-11-28] MEDS: amLODIPine BESYLATE 5 MG TABLET FEED TUBE (08:56)
[2022-11-28] MEDS: METOPROLOL TARTRATE 50 MG TAB PO ×2 (08:57→21:08)
[2022-11-28] MEDS: APIXABAN 5 MG TABLET FEED TUBE ×2 (08:57→21:07)
[2022-11-28] MEDS: MEMANTINE 10 MG TABLET FEED TUBE (08:57)
[2022-11-28] MEDS: RIVASTIGMINE TARTRATE 1.5 MG CAPSULE 3 MG FEED TUBE ×2 (08:58→17:37)
[2022-11-28] MEDS: AMOXICILLIN/CLAVULANATE K 875-125 MG TAB 1 TABLET PO ×2 (08:58→21:08)
--- NOTE | 2022-11-28 11:35 | PM.PNCARD ---
Progress Note: A&P Assessment and Plan (1) Atrial flutter with rapid ventricular response: Code(s): I48.92 - Unspecified atrial flutter Status: Acute Assessment and Plan: Discontinue IV amiodarone and start amiodarone 200 mg p.o. b.i.d. Continue metoprolol tartrate 50 mg twice daily for now. May need up titrate further but caution to avoid prolonged pauses and/or symptomatic bradycardia. Continue systemic anticoagulation with Eliquis 5 mg twice daily. Discussed eventual LAAO procedure. (2) Recurrent syncope: Code(s): R55 - Syncope and collapse Status: Acute Assessment and Plan: Etiology remains unclear but concerning for pauses and or intermittent bradycardia. Discussed outpatient loop recorder. (3) Recent cerebrovascular accident: Code(s): Z86.73 - Personal history of transient ischemic attack (TIA), and cerebral infarction without residual deficits Status: Acute Assessment and Plan: In addition to traumatic subdural hematoma patient did suffer an acute ischemic stroke very likely from her atrial flutter. Hence, initiation of systemic anticoagulation at discharge prior hospitalization to which she seems to be tolerating well at this time. Patient is a poor candidate for longer-term anticoagulation and left atrial appendage occlusion device considerations strongly recommended. (4) Left lower lobe pneumonia: Code(s): J18.9 - Pneumonia, unspecified organism Status: Acute Assessment and Plan: Continue antibiotics with azithromycin, ceftriaxone managed per primary service. Patient clinically improving in this regard. (5) Traumatic subdural hematoma: Qualifiers: Encounter type: sequela Loss of consciousness presence/duration: with LOC of unspecified duration Qualified Code(s): S06.5X9S - Traumatic subdural hemorrhage with loss of consciousness of unspecified duration, sequela Code(s): S06.5XAA - Traumatic subdural hemorrhage with loss of consciousness status unknown, initial encounter Status: Acute Assessment and Plan: As above, secondary to recurrent syncopal episode with fall and head injury prior to this hospitalization. (6) Hypertension: Qualifiers: Hypertension type: primary hypertension Qualified Code(s): I10 - Essential (primary) hypertension Code(s): I10 - Essential (primary) hypertension Status: Acute Assessment and Plan: BP stable. She remains on amlodipine 5 mg per tube daily. Continue for now. (7) Chronic anticoagulation: Code(s): Z79.01 - senior care (current) use of anticoagulants Status: Acute Assessment and Plan: Continue Eliquis 5 mg twice daily for bulk stroke risk reduction. Monitor for any signs of bleeding or new neurologic decline given recent history of subdural hematoma. If noted, repeat CT head STAT. Subjective Date/time seen: 11/28/22 11:35 Interval history: 77-year-old status post stroke, subdural hematoma, atrial flutter Date of service 11/28/2022 she has had some bursts of atrial flutter overnight and this morning but is back in sinus rhythm at this point. Family at bedside. No chest pain. Review of Systems Review of Systems: Remainder of the review of systems is otherwise negative aside from that noted in the HPI. All systems reviewed & are unremarkable except as noted in HPI and below Constitutional: Constitutional: Reports as per HPI and Reports no additional constitutional complaints Eyes: Eyes: Reports as per HPI and Reports no additional eye complaints ENT: Reports system reviewed and no additional complaints, except as documented and Reports as per HPI Cardiovascular: Cardiovascular: Reports as per HPI and Reports no additional cardiovascular complaints Respiratory: Respiratory: Reports as per HPI and Reports no additional respiratory complaints Gastrointestinal: Gastrointestinal: Reports as per HPI and Reports no gerardo
--- NOTE | 2022-11-28 13:20 | P.PNIM_ITS ---
Progress Note: A&P Assessment and Plan (1) Left lower lobe pneumonia: Code(s): J18.9 - Pneumonia, unspecified organism Status: Acute Assessment and Plan: CXR with left lower lobe airspace disease compatible with pneumonia. * Continue ceftriaxone and azithromycin * Blood cultures pending, negative to date * Sputum culture ordered, awaiting collection * COVID and influenza negative * Urinary Legionella and pneumococcal antigens ordered, awaiting collection * Supportive care. Bronchodilators, incentive spirometry, Cornet valve (pt will need assistance and reminders to use) * Leukocytosis markedly improved (23.3-->11.7) 11/26/2022: Shelly Mims is a 77-year-old female with history of recent right frontal subarachnoid hemorrhage, left temporal intraparenchymal hemorrhage, left frontal ischemic stroke (10/27/2022) with associated aphasia dysphagia and right-sided weakness status post PEG tube placement and tube feed, dementia, paroxysmal atrial fibrillation on anticoagulation, hypertension, SALLY, recent falls presented with increased weakness and poor coordination. She was admitted to the rehab facility and undergoing therapy. Her workup in the ER revealed leukocytosis of 23.3 lactic acid of 2.6. Chest x-ray with left lower lobe airspace disease compatible with pneumonia. Negative for influenza and COVID. UA was positive for UTI. CT abdomen and pelvis with airspace and ground-glass opacity in the left lung lower lobe consistent with atelectasis versus pneumonia. Small left pleural effusion. Wall thickening of the rectum with surrounding fat stranding consistent with proctitis. Follow-up hip x-ray with acute subcapital fracture of the right femoral neck. EKG showed atrial flutter/tachycardia with rapid ventricular response. Leukocytosis has since resolved. Blood culture negative to date. Urine culture with mixed genital linda. Patient treated with ceftriaxone and azithromycin. She has been on apixaban. Amiodarone drip has been started. Orthopedics that consulted plan for non operative treatment. Likely subacute from her fall last month. L1 compression fracture is likely subacute and suggested lumbar orthosis. Consider left atrial appendage occlusion device as an outpatient basis as poor candidate for long-term anticoagulation. Back to sinus rhythm this afternoon on amiodarone IV drip switch antibiotics to oral Augmentin 11/27/2022: Shelly Mims is a 77-year-old female with history of recent right frontal subarachnoid hemorrhage, left temporal intraparenchymal hemorrhage, left frontal ischemic stroke (10/27/2022) with associated aphasia dysphagia and right-sided weakness status post PEG tube placement and tube feed, dementia, paroxysmal atrial fibrillation on anticoagulation, hypertension, SALLY, recent f alls presented with increased weakness and poor coordination. She was admitted to the rehab facility and undergoing therapy. Her workup in the ER revealed leukocytosis of 23.3 lactic acid of 2.6. Chest x-ray with left lower lobe airspace disease compatible with pneumonia. Negative for influenza and COVID. UA was positive for UTI. CT abdomen and pelvis with airspace and ground-glass opacity in the left lung lower lobe consistent with atelectasis versus pneumonia. Small left pleural effusion. Wall thickening of the rectum with surrounding fat stranding consistent with proctitis. Follow-up hip x-ray with acute subcapital fracture of the right femoral neck. EKG showed atrial flutter/tachycardia with rapid ventricular response. Leukocytosis has since resolved. Blood culture negative to date. Urine culture with mixed genital linda. Patient treated with ceftriaxone and azithromycin. She has been on apixaban. Amiodarone drip has been started f
[2022-11-28] MEDS: AMIODARONE HCL 200 MG TABLET PO (21:09)
--- NOTE | 2022-11-28 22:53 | PC.NURSE ---
Upon making rounds, it is noted that the patient pulled out her joshua catheter with the balloon intact.
[2022-11-29] VITALS (27 sets, daily range): BP systolic 122–149; BP diastolic 48–88; PULSE 59–118; RESP 17–21; TEMP 36.2–36.8; O2SAT 95–100
[2022-11-29 04:34] LABS: Basophils Absolute Auto 0.1 K/mm3 (0.0-0.1); Basophils Percent Auto 0.8 % (0.2-1.2); Eosinophils Absolute Auto 0.4 K/mm3 (0-0.3); Eosinophils Percent Auto 4.6 % (0-4.4); Hematocrit 30.5 % (37.0-47.0); Hemoglobin 9.4 g/dL (12.0-15.0); Immature Granulocyte Absolute 0.03 K/mm3 (0.00-0.031); Immature Granulocyte Percent A 0.4 % (0-0.5); Lymphocytes Absolute Auto 0.62 K/mm3 (0.9-3.2); Lymphocytes Percent Auto 7.8 % (18.3-44.2); Mean Corpuscular HGB Conc 30.8 g/dl (32-36); Mean Corpuscular Volume 84.5 fl (80-100); Mean Platelet Volume 11.8 fl (7.4-10.4); Monocytes Absolute Auto 0.6 K/mm3 (0.1-0.6); Monocytes Percent Auto 7.5 % (2.6-8.5); Neutrophils Absolute Auto 6.3 K/mm3 (1.3-6.7); Neutrophils Percent Auto 78.9 % (45.5-73.1); Platelet Count Result 264 k/mm3 (150-375); Red Blood Count 3.61 M/mm3 (4.2-5.4); Red Cell Distribution Width 19.1 % (11.5-14.5)
[2022-11-29 04:42] LABS: Alanine Aminotransferase 36 U/L (6-35); Albumin Level 3.1 g/dL (3.5-5.1); Alkaline Phosphatase 94 U/L (38-126); Anion Gap 3 mmol/L (8-16); Aspartate Amino Transferase 31 U/L (14-36); Bilirubin,Total 0.4 mg/dL (0.2-1.3); Blood Urea Nitrogen 14 mg/dL (7-17); Calcium 8.5 mg/dL (8.4-10.2); Carbon Dioxide 33 mmol/L (22-30); Chloride 99 mmol/L (98-107); Estimated CRCL calculation 61 ml/min; Estimated Glomerular Filt Rate > 60; Glucose 89 mg/dL (65-110); Magnesium 2.1 mg/dL (1.6-2.3); Potassium 4.1 mmol/L (3.4-5.0); Sodium 135 mmol/L (137-145)
[2022-11-29] MEDS: ACETAMINOPHEN 325 MG TABLET 650 MG FEED TUBE ×4 (06:13→21:59)
[2022-11-29] MEDS: LEVALBUTEROL NEB 1.25 MG/3 ML INHALATION ×3 (07:13→20:38)
[2022-11-29] MEDS: IPRATROPIUM BR 0.02% INH SOLN 0.5 MG/2.5 ML VIAL INHALATION ×3 (07:13→20:38)
[2022-11-29] MEDS: RIVASTIGMINE TARTRATE 1.5 MG CAPSULE 3 MG FEED TUBE ×2 (08:35→17:19)
[2022-11-29] MEDS: AZITHROMYCIN 250 MG TABLET 500 MG PO (08:35)
[2022-11-29] MEDS: METOPROLOL TARTRATE 50 MG TAB PO ×3 (08:35→21:53)
[2022-11-29] MEDS: amLODIPine BESYLATE 5 MG TABLET FEED TUBE (08:35)
[2022-11-29] MEDS: AMIODARONE HCL 200 MG TABLET PO ×2 (08:35→21:53)
[2022-11-29] MEDS: APIXABAN 5 MG TABLET FEED TUBE ×2 (08:36→21:53)
[2022-11-29] MEDS: MEMANTINE 10 MG TABLET FEED TUBE (08:36)
--- NOTE | 2022-11-29 10:41 | PM.PNCARD ---
Progress Note: A&P Assessment and Plan (1) Atrial flutter with rapid ventricular response: Code(s): I48.92 - Unspecified atrial flutter Status: Acute Assessment and Plan: Continue oral amiodarone 200 mg p.o. b.i.d.. Will change oral metoprolol to 50 mg p.o. q.8 hours. May need up titrate further but caution to avoid prolonged pauses and/or symptomatic bradycardia. Continue systemic anticoagulation with Eliquis 5 mg twice daily. Discussed eventual LAAO procedure. (2) Recurrent syncope: Code(s): R55 - Syncope and collapse Status: Acute Assessment and Plan: Etiology remains unclear but concerning for pauses and or intermittent bradycardia. Discussed outpatient loop recorder. (3) Recent cerebrovascular accident: Code(s): Z86.73 - Personal history of transient ischemic attack (TIA), and cerebral infarction without residual deficits Status: Acute Assessment and Plan: In addition to traumatic subdural hematoma patient did suffer an acute ischemic stroke very likely from her atrial flutter. Hence, initiation of systemic anticoagulation at discharge prior hospitalization to which she seems to be tolerating well at this time. Patient is a poor candidate for longer-term anticoagulation and left atrial appendage occlusion device considerations strongly recommended. (4) Left lower lobe pneumonia: Code(s): J18.9 - Pneumonia, unspecified organism Status: Acute Assessment and Plan: Continue antibiotics with azithromycin, ceftriaxone managed per primary service. Patient clinically improving in this regard. (5) Traumatic subdural hematoma: Qualifiers: Encounter type: sequela Loss of consciousness presence/duration: with LOC of unspecified duration Qualified Code(s): S06.5X9S - Traumatic subdural hemorrhage with loss of consciousness of unspecified duration, sequela Code(s): S06.5XAA - Traumatic subdural hemorrhage with loss of consciousness status unknown, initial encounter Status: Acute Assessment and Plan: As above, secondary to recurrent syncopal episode with fall and head injury prior to this hospitalization. (6) Hypertension: Qualifiers: Hypertension type: primary hypertension Qualified Code(s): I10 - Essential (primary) hypertension Code(s): I10 - Essential (primary) hypertension Status: Acute Assessment and Plan: BP stable. She remains on amlodipine 5 mg per tube daily. Continue for now. (7) Chronic anticoagulation: Code(s): Z79.01 - care home (current) use of anticoagulants Status: Acute Assessment and Plan: Continue Eliquis 5 mg twice daily for bulk stroke risk reduction. Monitor for any signs of bleeding or new neurologic decline given recent history of subdural hematoma. If noted, repeat CT head STAT. Subjective Date/time seen: 11/29/22 10:41 Interval history: 77-year-old status post stroke, subdural hematoma, atrial flutter Date of service 11/28/2022 she has had some bursts of atrial flutter overnight and this morning but is back in sinus rhythm at this point. Family at bedside. No chest pain. Date of service 11/29/2022: Still going in and out atrial flutter. Heart rate is reasonably controlled while in flutter. She is responsive. No chest pain Review of Systems Review of Systems: Remainder of the review of systems is otherwise negative aside from that noted in the HPI. All systems reviewed & are unremarkable except as noted in HPI and below Constitutional: Constitutional: Reports as per HPI and Reports no additional constitutional complaints Eyes: Eyes: Reports as per HPI and Reports no additional eye complaints ENT: Reports system reviewed and no additional complaints, except as documented and Reports as per HPI Cardiovascular: Cardiovascular: Reports as per HPI and Reports no additional cardiovascular complaints Respiratory: Respiratory: Reports
--- NOTE | 2022-11-29 22:49 | PC.NURSE ---
Upon making rounds at 1999, patient had pulled out joshua catheter with balloon still inflated. Incontinent of liquid stool with stool all over hands and hair. Complete bath given. #16 FR joshua reinserted without difficulty.
[2022-11-30] VITALS (30 sets, daily range): BP systolic 123–142; BP diastolic 58–77; PULSE 55–114; RESP 15–21; TEMP 36.4–36.8; O2SAT 97–100
[2022-11-30] MEDS: LEVALBUTEROL NEB 1.25 MG/3 ML INHALATION ×4 (02:12→20:37)
[2022-11-30] MEDS: IPRATROPIUM BR 0.02% INH SOLN 0.5 MG/2.5 ML VIAL INHALATION ×4 (02:12→20:36)
[2022-11-30 05:25] LABS: Basophils Absolute Auto 0.1 K/mm3 (0.0-0.1); Basophils Percent Auto 0.8 % (0.2-1.2); Eosinophils Absolute Auto 0.4 K/mm3 (0-0.3); Eosinophils Percent Auto 5.8 % (0-4.4); Hematocrit 31.5 % (37.0-47.0); Hemoglobin 9.9 g/dL (12.0-15.0); Immature Granulocyte Absolute 0.02 K/mm3 (0.00-0.031); Immature Granulocyte Percent A 0.3 % (0-0.5); Lymphocytes Absolute Auto 0.84 K/mm3 (0.9-3.2); Lymphocytes Percent Auto 11.7 % (18.3-44.2); Mean Corpuscular HGB Conc 31.4 g/dl (32-36); Mean Corpuscular Hemoglobin 26.4 pg (26-34); Mean Platelet Volume 11.4 fl (7.4-10.4); Monocytes Absolute Auto 0.8 K/mm3 (0.1-0.6); Monocytes Percent Auto 10.4 % (2.6-8.5); Neutrophils Absolute Auto 5.1 K/mm3 (1.3-6.7); Platelet Count Result 271 k/mm3 (150-375); Red Blood Count 3.75 M/mm3 (4.2-5.4); Red Cell Distribution Width 18.7 % (11.5-14.5); White Blood Count 7.2 K/mm3 (4.5-10.0)
[2022-11-30 05:37] LABS: Alanine Aminotransferase 86 U/L (6-35); Albumin Level 3.3 g/dL (3.5-5.1); Alkaline Phosphatase 100 U/L (38-126); Anion Gap 3 mmol/L (8-16); Aspartate Amino Transferase 59 U/L (14-36); Bilirubin,Total 0.4 mg/dL (0.2-1.3); Blood Urea Nitrogen 17 mg/dL (7-17); Calcium 8.6 mg/dL (8.4-10.2); Carbon Dioxide 31 mmol/L (22-30); Chloride 101 mmol/L (98-107); Estimated CRCL calculation 71 ml/min; Estimated Glomerular Filt Rate > 60; Glucose 101 mg/dL (65-110); Magnesium 2.3 mg/dL (1.6-2.3); Potassium 4.3 mmol/L (3.4-5.0); Sodium 135 mmol/L (137-145)
[2022-11-30] MEDS: ACETAMINOPHEN 325 MG TABLET 650 MG FEED TUBE ×3 (06:20→18:44)
[2022-11-30] MEDS: METOPROLOL TARTRATE 50 MG TAB PO ×3 (06:21→21:14)
--- NOTE | 2022-11-30 08:49 | PM.PNCARD ---
Progress Note: A&P Assessment and Plan (1) Atrial flutter with rapid ventricular response: Code(s): I48.92 - Unspecified atrial flutter Status: Acute Plan 77-year-old woman with complicated situation has paroxysmal atrial flutter as well as recent stroke both ischemic and hemorrhagic. She is maintaining a normal rhythm with amiodarone and when in atrial flutter seems to be better controlled with metoprolol at current dosage. Will not adjust her titrate anything today. 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 Kunal Mendoza MD [facility] Subjective Date/time seen: Date of service: 11/30/22 08:49 Interval history: 77-year-old status post stroke, subdural hematoma, atrial flutter Date of service 11/28/2022 she has had some bursts of atrial flutter overnight and this morning but is back in sinus rhythm at this point. Family at bedside. No chest pain. Date of service 11/29/2022: Still going in and out atrial flutter. Heart rate is reasonably controlled while in flutter. She is responsive. No chest pain Date of service 11/30/2022: Resting in bed sleeping with BiPAP in place. at the bedside. Currently in sinus rhythm heart rate 63. Exam Narrative: General: Pleasant thin female sleeping in bed with BiPAP mask in place. Head: atraumatic, normocephalic Eyes: EOM intact, sclerae anicteric, conjunctivae unremarkable Ears/Nose: external inspection of ears and nose were grossly normal Mouth/Throat: oral mucosa pink and moist Neck: supple, normal range of motion, no jugular venous distention or carotid bruits, thyroid nonpalpable, trachea midline. Cardiac: Tachycardic, regularly irregular rhythm, normal S1-S2, no appreciable murmurs Lungs: Diminished breath sounds at the bases no rales, wheezes, or rhonchi. Abdomen: Soft, nontender, nondistended, positive bowel sounds throughout. Peg tube in place. Extremities: No edema, no clubbing, or cyanosis. Extremities warm and well perfused. Skin: Warm and dry without ecchymoses, rashes, and/or petechiae. Musculoskeletal: Muscle strength and tone diminished, limited exam. Vascular: Carotid upstrokes 2+ bilaterally, radial pulses 2+ bilaterally, dorsalis pedis pulses 1+ bilaterally Neurologic: Aphasic Psychiatric: Mood calm and appropriate. Const: General: comfortable, no acute distress, alert, awake and thin Nutritional Appearance: thin Orientation/consciousness: patient oriented x3 HENMT: Head: normal to inspection Eyes: General: appearance normal, both eyes and all related structures Pupils: Equal, round and reactive pupils present Neck: Neck: normal visual inspection, supple and no JVD Carotids: normal carotid upstroke Resp: Effort & Inspection: normal respiratory effort Auscultation: clear to auscultation bilaterally, no rales, no rhonchi and no wheezes Cardio: Rate: regular rate Rhythm: regular rhythm and abnormal rhythm regularly irregular Heart sounds: S1 normal heart sound present, S2 normal heart sound present and no murmurs GI: Auscultation: normal bowel sounds Other: PEG tube present Urinary Catheter: Urinary Catheter: patent and draining Skin: General skin exam: normal color Neuro: General: patient oriented x3 Cranial nerves: Yes Equal, round and reactive pupils present Extrem: General: normal to inspection Psych: Appearance: grossly normal Mental Status: mental status grossly normal Objective Data Vital Signs Vital Signs: Vital Signs - 24 hr 11/29/22 10:00 11/29/22 12:25 11/29/22 12:00 Temperature 36.7 C Pulse Rate 96 73 73 Respiratory Rate 20 20 Blood Pressure 145/70 H Pulse Oximetry 98 98 Oxygen Delivery Room Air Fraction of Inspired Oxygen
--- NOTE | 2022-11-30 08:59 | PCPTNOTE ---
Attempted to see patient for PT, however patient was sleeping soundly and patient's family member asked PT to come back later. Patient's family member declined PT at this time.
[2022-11-30] MEDS: MEMANTINE 10 MG TABLET FEED TUBE (09:14)
[2022-11-30] MEDS: APIXABAN 5 MG TABLET FEED TUBE ×2 (09:14→21:14)
[2022-11-30] MEDS: RIVASTIGMINE TARTRATE 1.5 MG CAPSULE 3 MG FEED TUBE ×2 (09:14→18:42)
[2022-11-30] MEDS: AMIODARONE HCL 200 MG TABLET PO ×2 (09:15→21:14)
[2022-11-30] MEDS: amLODIPine BESYLATE 5 MG TABLET FEED TUBE (09:15)
[2022-12-01] VITALS (22 sets, daily range): BP systolic 112–133; BP diastolic 56–85; PULSE 68–111; RESP 14–20; TEMP 36.6–37.2; O2SAT 98–100
[2022-12-01] MEDS: ACETAMINOPHEN 325 MG TABLET 650 MG FEED TUBE ×4 (01:13→23:33)
[2022-12-01] MEDS: IPRATROPIUM BR 0.02% INH SOLN 0.5 MG/2.5 ML VIAL INHALATION ×4 (02:27→19:57)
[2022-12-01] MEDS: LEVALBUTEROL NEB 1.25 MG/3 ML INHALATION ×4 (02:27→19:57)
[2022-12-01 05:05] LABS: Basophils Absolute Auto 0.1 K/mm3 (0.0-0.1); Basophils Percent Auto 0.7 % (0.2-1.2); Eosinophils Absolute Auto 0.4 K/mm3 (0-0.3); Eosinophils Percent Auto 5.2 % (0-4.4); Hematocrit 35.4 % (37.0-47.0); Hemoglobin 10.8 g/dL (12.0-15.0); Immature Granulocyte Absolute 0.02 K/mm3 (0.00-0.031); Immature Granulocyte Percent A 0.3 % (0-0.5); Lymphocytes Absolute Auto 1.08 K/mm3 (0.9-3.2); Lymphocytes Percent Auto 15.3 % (18.3-44.2); Mean Corpuscular HGB Conc 30.5 g/dl (32-36); Mean Corpuscular Hemoglobin 25.5 pg (26-34); Mean Corpuscular Volume 83.5 fl (80-100); Mean Platelet Volume 11.4 fl (7.4-10.4); Monocytes Absolute Auto 0.6 K/mm3 (0.1-0.6); Monocytes Percent Auto 8.8 % (2.6-8.5); Neutrophils Absolute Auto 4.9 K/mm3 (1.3-6.7); Neutrophils Percent Auto 69.7 % (45.5-73.1); Platelet Count Result 299 k/mm3 (150-375); Red Blood Count 4.24 M/mm3 (4.2-5.4); Red Cell Distribution Width 18.4 % (11.5-14.5); White Blood Count 7.1 K/mm3 (4.5-10.0)
[2022-12-01 05:16] LABS: Alanine Aminotransferase 107 U/L (6-35); Albumin Level 3.6 g/dL (3.5-5.1); Alkaline Phosphatase 120 U/L (38-126); Anion Gap 3 mmol/L (8-16); Aspartate Amino Transferase 56 U/L (14-36); Bilirubin,Total 0.5 mg/dL (0.2-1.3); Blood Urea Nitrogen 19 mg/dL (7-17); Calcium 8.8 mg/dL (8.4-10.2); Carbon Dioxide 31 mmol/L (22-30); Chloride 99 mmol/L (98-107); Estimated CRCL calculation 71 ml/min; Estimated Glomerular Filt Rate > 60; Glucose 108 mg/dL (65-110); Magnesium 2.3 mg/dL (1.6-2.3); Potassium 4.1 mmol/L (3.4-5.0); Sodium 133 mmol/L (137-145)
[2022-12-01] MEDS: METOPROLOL TARTRATE 50 MG TAB PO ×3 (05:43→21:25)
[2022-12-01] MEDS: RIVASTIGMINE TARTRATE 1.5 MG CAPSULE 3 MG FEED TUBE ×2 (08:40→17:02)
[2022-12-01] MEDS: MEMANTINE 10 MG TABLET FEED TUBE (08:40)
[2022-12-01] MEDS: amLODIPine BESYLATE 5 MG TABLET FEED TUBE (08:40)
[2022-12-01] MEDS: AMIODARONE HCL 200 MG TABLET PO ×2 (08:40→21:25)
[2022-12-01] MEDS: APIXABAN 5 MG TABLET FEED TUBE ×2 (08:40→21:25)
[2022-12-01] MEDS: polyethylene glycoL 3350 17 GM POWD.PACK PO (08:41)
--- NOTE | 2022-12-01 10:36 | PM.PNCARD ---
Progress Note: A&P Assessment and Plan (1) Atrial flutter with rapid ventricular response: Code(s): I48.92 - Unspecified atrial flutter Status: Acute Assessment and Plan: 77-year-old woman with complicated situation with paroxysmal atrial flutter as well as recent stroke both ischemic and hemorrhagic. She has paroxysmal atrial flutter on tele, however, when in atrial flutter, she remains rate controlled. Continue with Amiodarone and Metoprolol. Continue Eliquis 5mg BID. Patient is a poor candidate for longer-term anticoagulation and left atrial appendage occlusion device considerations strongly recommended. Patient and family would like to pursue LAAO device. Will arrange clinic appointment with Dr. Frausto regarding LAAO device. Cardiology will sign off at this time. Please call us back if needed. Subjective Date/time seen: 12/01/22 10:36 Interval history: Reason for visit: Atrial flutter 77-year-old status post stroke, subdural hematoma, atrial flutter Date of service 11/28/2022: She has had some bursts of atrial flutter overnight and this morning but is back in sinus rhythm at this point. Family at bedside. No chest pain. Date of service 11/29/2022: Still going in and out atrial flutter. Heart rate is reasonably controlled while in flutter. She is responsive. No chest pain Date of service 11/30/2022: Resting in bed sleeping with BiPAP in place. at the bedside. Currently in sinus rhythm heart rate 63. Date of service 12/01/2022: Has intermittent atrial flutter on tele, remains rate controlled when in flutter. Review of Systems Review of Systems: All systems reviewed & are unremarkable except as noted in HPI and below (HPI) Exam Const: General: comfortable, no acute distress, alert and awake HENMT: Head: normal to inspection Eyes: General: appearance normal, both eyes and all related structures Neck: Neck: normal visual inspection and supple Resp: Effort & Inspection: normal respiratory effort Auscultation: clear to auscultation bilaterally Cardio: Rate: regular rate Rhythm: regular rhythm Heart sounds: S1 normal heart sound present, S2 normal heart sound present and no murmurs GI: Other: PEG tube present Urinary Catheter: Urinary Catheter: patent and draining Skin: General skin exam: normal color Extrem: General: normal to inspection Psych: Appearance: grossly normal Mental Status: mental status grossly normal Objective Data Vital Signs Vital Signs: Vital Signs - 24 hr 11/30/22 12:00 11/30/22 13:28 11/30/22 14:00 Temperature Pulse Rate 72 75 70 Respiratory Rate Blood Pressure Pulse Oximetry Oxygen Delivery 11/30/22 14:18 11/30/22 14:28 11/30/22 16:14 Temperature 36.4 C L Pulse Rate 68 67 71 Respiratory Rate 16 16 20 Blood Pressure 123/58 L Pulse Oximetry 100 Oxygen Delivery 11/30/22 16:00 11/30/22 18:00 11/30/22 20:29 Temperature 36.4 C Pulse Rate 69 67 70 Respiratory Rate 20 Blood Pressure 131/64 Pulse Oximetry 100 Oxygen Delivery 11/30/22 20:39 11/30/22 20:40 11/30/22 21:14 Temperature Pulse Rate 70 80 Respiratory Rate 20 Blood Pressure Pulse Oximetry 100 Oxygen Delivery Room Air 11/30/22 21:14 11/30/22 20:00 11/30/22 22:17 Temperature Pulse Rate 70 69 Respiratory Rate 18 Blood Pressure Pulse Oximetry 98 Oxygen Delivery Room Air Autopap 11/30/22 20:00 12/01/22 00:00 12/01/22 02:29 Temperature Pulse Rate 72 95 100 Respiratory Rate 14 Blood Pressure Pulse Oximetry Oxygen Delivery 12/01/22 02:30 11/30/22 20:50 12/01/22 02:38 Temperature Pulse Rate 100 74 106 H Respiratory Rate 16 20 14 Blood Pressure Pulse Oximetry 98 Oxygen Delivery [employer]opap 12/01/22 02:00 12/01/22 05:43 12/01/22 04:00 Temperature Pulse Rate 105 H 101 H 95 Respiratory Rate Blood Pressure Pulse Oximetry Oxygen Delivery
--- NOTE | 2022-12-01 10:49 | PCNFU ---
Nutrition Follow-Up Complete: Swallowing difficulty related to dysphagia as evidenced by need for tube feedings for full nutrition support. Goal:Meet estimated needs Pt current nutrition is Jevity 1.5 bolus 280 ml QID with 100 ml flushes before and after each bolus. Nutrition recommendation: Continue with current tube feeding orders. Last recorded weight is 56.6 kg - stable. Bowel Motility: +BM 11/29 Labs Reviewed: Hgb:10.58. HCT:35.4, NA: 133, BUN:19, Cr:0.5 Meds Noted: eliquis, zofran, melatonin Skin: WNL Additional Notes: Pt continues on same tube feeding, Totals: 1680 kcal, 71 g protein, 1650 ml free water. Tolerating well. Monitor tube feedings, tolerance, wt, labs. Follow up every Wednesday and Wednesday.
[2022-12-01] MEDS: GABAPENTIN 100 MG CAPSULE PO (21:25)
[2022-12-01] MEDS: MELATONIN 3 MG TABLET FEED TUBE (21:28)
[2022-12-02] VITALS (26 sets, daily range): BP systolic 132–139; BP diastolic 51–61; PULSE 58–90; RESP 16–19; TEMP 36.4–36.6; O2SAT 97–100
--- NOTE | 2022-12-02 00:07 | PC.NURSE ---
This patient, Shelly Mims, was transferred to [room 242 ] on 12/02/22 at 0007. Personal belongings sent with patient. Report given to [GHANSHYAM Leon ]. Appropriate documentation sent with patient.
[2022-12-02] MEDS: IPRATROPIUM BR 0.02% INH SOLN 0.5 MG/2.5 ML VIAL INHALATION ×4 (02:24→20:50)
[2022-12-02] MEDS: LEVALBUTEROL NEB 1.25 MG/3 ML INHALATION ×4 (02:24→20:50)
[2022-12-02] MEDS: ACETAMINOPHEN 325 MG TABLET 650 MG FEED TUBE ×4 (05:27→23:21)
[2022-12-02] MEDS: METOPROLOL TARTRATE 50 MG TAB PO ×3 (05:28→20:13)
[2022-12-02 06:37] LABS: Hematocrit 31.6 % (37.0-47.0); Hemoglobin 9.8 g/dL (12.0-15.0); Mean Corpuscular Volume 83.8 fl (80-100); Mean Platelet Volume 11.3 fl (7.4-10.4); Platelet Count Result 339 k/mm3 (150-375); Red Blood Count 3.77 M/mm3 (4.2-5.4); Red Cell Distribution Width 18.4 % (11.5-14.5); White Blood Count 7.4 K/mm3 (4.5-10.0)
[2022-12-02 06:43] LABS: Anion Gap 3 mmol/L (8-16); Blood Urea Nitrogen 27 mg/dL (7-17); Calcium 8.4 mg/dL (8.4-10.2); Carbon Dioxide 32 mmol/L (22-30); Chloride 98 mmol/L (98-107); Estimated CRCL calculation 51 ml/min; Estimated Glomerular Filt Rate > 60; Glucose 94 mg/dL (65-110); Magnesium 2.4 mg/dL (1.6-2.3); Potassium 4.8 mmol/L (3.4-5.0); Sodium 133 mmol/L (137-145)
[2022-12-02] MEDS: amLODIPine BESYLATE 5 MG TABLET FEED TUBE (09:54)
[2022-12-02] MEDS: AMIODARONE HCL 200 MG TABLET PO ×2 (09:54→20:14)
[2022-12-02] MEDS: APIXABAN 5 MG TABLET FEED TUBE ×2 (09:54→20:14)
[2022-12-02] MEDS: polyethylene glycoL 3350 17 GM POWD.PACK PO (09:55)
[2022-12-02] MEDS: MEMANTINE 10 MG TABLET FEED TUBE (09:55)
[2022-12-02] MEDS: RIVASTIGMINE TARTRATE 1.5 MG CAPSULE 3 MG FEED TUBE ×2 (09:55→17:26)
--- NOTE | 2022-12-02 10:07 | PCSTNOTE ---
present this morning appr. 9:30 and stated that patient tends to sleep more in the morning and requested therapy return in the afternoon.
--- NOTE | 2022-12-02 14:04 | PCCCNOTE ---
On 12/02/22, the student, [Ina Hannah ], provided care and completed [facility] documentation on this patient. I have reviewed the student's documentation and agree with the findings.
--- NOTE | 2022-12-02 16:57 | PCSTNOTE ---
Therapist attempted to complete treatment session in the morning; stated that patient does better in the afternoon, to come back then. Therapist agreed however schedule did not allow time for session in the afternoon.
[2022-12-02] MEDS: GABAPENTIN 100 MG CAPSULE PO (20:13)
[2022-12-03] VITALS (12 sets, daily range): BP systolic 130; BP diastolic 53; PULSE 60–86; RESP 16–18; TEMP 36.6; O2SAT 97–100
[2022-12-03 05:16] LABS: Hematocrit 33.1 % (37.0-47.0); Hemoglobin 10.3 g/dL (12.0-15.0); Mean Corpuscular HGB Conc 31.1 g/dl (32-36); Mean Corpuscular Hemoglobin 25.8 pg (26-34); Platelet Count Result 369 k/mm3 (150-375); Red Blood Count 3.99 M/mm3 (4.2-5.4); Red Cell Distribution Width 18.4 % (11.5-14.5); White Blood Count 7.3 K/mm3 (4.5-10.0)
[2022-12-03 05:28] LABS: Anion Gap 4 mmol/L (8-16); Blood Urea Nitrogen 22 mg/dL (7-17); Calcium 8.7 mg/dL (8.4-10.2); Carbon Dioxide 32 mmol/L (22-30); Chloride 98 mmol/L (98-107); Estimated CRCL calculation 58 ml/min; Estimated Glomerular Filt Rate > 60; Glucose 95 mg/dL (65-110); Magnesium 2.3 mg/dL (1.6-2.3); Potassium 4.4 mmol/L (3.4-5.0); Sodium 134 mmol/L (137-145)
[2022-12-03] MEDS: METOPROLOL TARTRATE 50 MG TAB PO ×2 (05:43→13:17)
[2022-12-03] MEDS: ACETAMINOPHEN 325 MG TABLET 650 MG FEED TUBE ×2 (05:43→13:17)
[2022-12-03] MEDS: IPRATROPIUM BR 0.02% INH SOLN 0.5 MG/2.5 ML VIAL INHALATION ×2 (07:05→13:01)
[2022-12-03] MEDS: LEVALBUTEROL NEB 1.25 MG/3 ML INHALATION ×2 (07:05→13:02)
[2022-12-03] MEDS: AMIODARONE HCL 200 MG TABLET PO (09:19)
[2022-12-03] MEDS: amLODIPine BESYLATE 5 MG TABLET FEED TUBE (09:20)
[2022-12-03] MEDS: APIXABAN 5 MG TABLET FEED TUBE (09:20)
[2022-12-03] MEDS: polyethylene glycoL 3350 17 GM POWD.PACK PO (09:21)
[2022-12-03] MEDS: MEMANTINE 10 MG TABLET FEED TUBE (09:21)
[2022-12-03] MEDS: RIVASTIGMINE TARTRATE 1.5 MG CAPSULE 3 MG FEED TUBE (09:21)
--- NOTE | 2022-12-03 09:24 | PCSTNOTE ---
Therapist again tried to complete treatment in the morning; patient is fast asleep and reported she was restless over night and asleep now. Try back in the afternoon.
[2022-12-03 11:26] LABS: EDCOVIDSCREEN Negative (Negative)
--- NOTE | 2022-12-03 11:32 | P.DS_ITS ---
DS: Admitting Diagnosis Discharge Date 12/03/2022 Admitting Diagnosis Weakness DS: Discharge Diagnosis Discharge Diagnosis (1) Left lower lobe pneumonia: Code(s): J18.9 - Pneumonia, unspecified organism Status: Acute Assessment and Plan: CXR with left lower lobe airspace disease compatible with pneumonia. * Continue ceftriaxone and azithromycin * Blood cultures pending, negative to date * Sputum culture ordered, awaiting collection * COVID and influenza negative * Urinary Legionella and pneumococcal antigens ordered, awaiting collection * Supportive care. Bronchodilators, incentive spirometry, Cornet valve (pt will need assistance and reminders to use) * Leukocytosis markedly improved (23.3-->11.7) 11/26/2022: Shelly Mims is a 77-year-old female with history of recent right frontal subarachnoid hemorrhage, left temporal intraparenchymal hemorrhage, left frontal ischemic stroke (10/27/2022) with associated aphasia dysphagia and right-sided weakness status post PEG tube placement and tube feed, dementia, paroxysmal atrial fibrillation on anticoagulation, hypertension, SALLY, recent falls presented with increased weakness and poor coordination. She was admitted to the rehab facility and undergoing therapy. Her workup in the ER revealed leukocytosis of 23.3 lactic acid of 2.6. Chest x-ray with left lower lobe airspace disease compatible with pneumonia. Negative for influenza and COVID. UA was positive for UTI. CT abdomen and pelvis with airspace and ground-glass opacity in the left lung lower lobe consistent with atelectasis versus pneumonia. Small left pleural effusion. Wall thickening of the rectum with surrounding fat stranding consistent with proctitis. Follow-up hip x-ray with acute subcapital fracture of the right femoral neck. EKG showed atrial flutter/tachycardia with rapid ventricular response. Leukocytosis has since resolved. Blood culture negative to date. Urine culture with mixed genital linda. Patient treated with ceftriaxone and azithromycin. She has been on apixaban. Amiodarone drip has been started. Orthopedics that consulted plan for non operative treatment. Likely subacute from her fall last month. L1 compression fracture is likely subacute and suggested lumbar orthosis. Consider left atrial appendage occlusion device as an outpatient basis as poor candidate for long-term anticoagulation. Back to sinus rhythm this afternoon on amiodarone IV drip switch antibiotics to oral Augmentin 11/27/2022: Shelly Mims is a 77-year-old female with history of recent right frontal subarachnoid hemorrhage, left temporal intraparenchymal hemorrhage, left frontal ischemic stroke (10/27/2022) with associated aphasia dysphagia and right-sided weakness status post PEG tube placement and tube feed, dementia, paroxysmal atrial fibrillation on anticoagulation, hypertension, SALLY, recent falls presented with increased weakness and poor coordination. She was admitted to the rehab facility and undergoing therapy. Her workup in the ER revealed leukocytosis of 23.3 lactic acid of 2.6. Chest x-ray with left lower lobe airspace disease compatible with pneumonia. Negative for influenza and COVID. UA was positive for UTI. CT abdomen and pelvis with airspace and ground-glass opacity in the left lung lower lobe consistent with atelectasis versus pneumonia. Small left pleural effusion. Wall thickening of the rectum with surrounding fat stranding consistent with proctitis. Follow-up hip x-ray with acute subcapital fracture of the right femoral neck. EKG showed atrial flutter/tachycardia with rapid ventricular response. Leukocytosis has since resolved. Blood culture negative to date. Urine culture with mixed genital linda. P
== END 2022-12-03 17:30 | DRG 193 ==
LOC: ANHED 14:01 → ANH3MEDSUR 15:36 → ANHIMU 11-24 18:51 → ANH2MED 12-02 00:12
PROVIDERS: Family Medicine; Internal Medicine; Physician Assistant; Admitting Provider Internal Medicine; Emergency Provider Emergency Medicine; PCP Internal Medicine; Visit Provider Family Medicine
DX: J18.9 Pneumonia, unspecified organism (principal); S72.011A Unspecified intracapsular fracture of right femur, initial encounter for closed fracture; S32.011A Stable burst fracture of first lumbar vertebra, initial encounter for closed fracture; Z68.1 Body mass index [BMI] 19.9 or less, adult; I69.351 Hemiplegia and hemiparesis following cerebral infarction affecting right dominant side; I69.391 Dysphagia following cerebral infarction; R13.10 Dysphagia, unspecified; I10 Essential (primary) hypertension; I48.0 Paroxysmal atrial fibrillation; M81.0 Age-related osteoporosis without current pathological fracture; M41.9 Scoliosis, unspecified; G47.33 Obstructive sleep apnea (adult) (pediatric); F03.90 Unspecified dementia, unspecified severity, without behavioral disturbance, psychotic disturbance, mood disturbance, and anxiety; Z20.822 Contact with and (suspected) exposure to COVID-19; Z93.1 Gastrostomy status; Z79.01 Long term (current) use of anticoagulants; Z79.899 Other long term (current) drug therapy; I69.320 Aphasia following cerebral infarction; W19.XXXA Unspecified fall, initial encounter; N83.8 Other noninflammatory disorders of ovary, fallopian tube and broad ligament
CPT/HCPCS: 36415; 71046; 73502; 74176; 80048; 80053; 81001; 82274; 82948; 83036; 83605; 83735; 84484; 85025; 85027; 86738; 87040; 87045; 87086; 87088; 87269; 87272; 87426; 87427; 87636; 92507; 92523; 93005; 94002; 94003; 94640; 94660; 94669; 96361; 96365; 96367; 96375; 97110; 97161; 97165; 97530; 97535; 99285; A9270; C9803; G0378; J0282; J0456; J0696; J7030

== ENCOUNTER 2022-12-28 00:11 | Emergency (ER) | payer MEDICARE, SELFPAY ==
--- NOTE | ~2022-12-28 | XR_ITS ---
G-tube replacement TECHNIQUE: Supine radiographs of the abdomen were performed following administration of 120 cc of Gas trografin through the percutaneous gastrostomy tube. Clinical history: G-tube placement Findings: Bowel gas pattern is nonspecific. Percutaneous gastrostomy tube is appropriately located wi thin the gastric lumen. No abnormal extravasation of contrast seen. No evidence for obstruction or fr ee air. No abnormal mass lesion or calcification is seen. There is subcapital fracture of the right f emoral neck. Impression: Percutaneous gastrostomy tube is appropriately located within the gastric lumen. No abnormal extravas ation of contrast. Subcapital fracture of the right femoral neck. Reviewed, dictated and finalized at location . Impression: Percutaneous gastrostomy tube is appropriately located within the gastric lumen . No abnormal extravasation of contrast. Subcapital fracture of the right femoral neck.
[2022-12-28 00:13] VITALS: BP 171/66; PULSE 69; RESP 16; TEMP 36.9; O2SAT 99
--- NOTE | 2022-12-28 00:26 | ED.GENADULT ---
HPI - General Adult General Chief complaint: Unspecified Stated complaint: . Time Seen by Provider: 12/28/22 00:14 History of Present Illness HPI narrative: The patient is a 77-year-old female who presents to the emergency department with chief complaint of pulled G-tube out. Patient had history of CVA and uses a G-tube for feeding and today the tube popped out. A Bravo catheter was placed in the tract to maintain the tract and the patient was transported the emergency department for G-tube replacement. The patient has no complaints otherwise Related Data Home Medications Medication Instructions Recorded Confirmed acetaminophen 325 mg tablet 650 mg PO Q6H PRN Pain (Scale 11/19/22 11/19/22 Score 1-3) Miralax 17 g PO DAILY constipation 11/22/22 11/22/22 acetaminophen 650 mg feeding tube Q6H 11/22/22 11/22/22 amlodipine 5 mg feeding tube DAILY 11/22/22 11/22/22 apixaban 5 mg tablet (Eliquis) 5 mg feeding tube BID 11/22/22 11/22/22 melatonin 3 mg feeding tube HS PRN Sleep 11/22/22 11/22/22 rivastigmine tartrate 3 mg feeding tube BID 11/22/22 11/22/22 sennosides-docusate sodium 8.6 - 50 mg feeding tube HS PRN 11/22/22 11/22/22 Constipation Allergies Allergy/AdvReac Type Severity Reaction Status Date / Time No Known Drug Allergies AdvReac Unknown Verified 12/28/22 00:22 Review of Systems Review of Systems: A 10 system review of systems was completed on the patient and is negative except for what is stated in the HPI. Nursing and ancillary documentation was reviewed. 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 Social History Social History Social History: Surrogate medical decision maker: Kaylynn Jurado, . Code status: Full code. Smoking status: Never smoker Second hand tobacco smoke exposure: No Alcohol intake: former Drinks per week: 1 Alcohol use details: wine Substance use: never Substance use type: does not use Lack of Transportation: No Lack of Food: Never True Current Housing: I Have Housing Concerned About Future Housing: No Difficulty Paying Gas/Electric Bills: No Difficulty Paying for Meds: No Currently Unemployed: No Education: Master's Degree or Higher Difficulty w/ Childcare or Family Care: No Living arrangements: with family Additional living arrangements comments: Prior to her recent hospitalization she was living with her in [place]. 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 Gender identity (if verbalized by the patient): Male Spiritual care concerns: No Exam Narrative: GENERAL: Well-appearing, well-nourished,
[2022-12-28 00:53] VITALS: BP 149/67; PULSE 71; RESP 16; O2SAT 100
[2022-12-28 01:32] VITALS: BP 144/70; PULSE 71; RESP 14; O2SAT 100
--- NOTE | 2022-12-28 01:46 | PC.NURSE ---
EMS arrived to transport pt, bedside report given. pt transported out of ED via EMS stretcher, upright per baseline
== END 2022-12-28 01:47 ==
LOC: ANHED 00:31
PROVIDERS: Emergency Provider Emergency Medicine; PCP Internal Medicine
DX: T85.528A Displacement of other gastrointestinal prosthetic devices, implants and grafts, initial encounter (principal); H26.9 Unspecified cataract; Z79.01 Long term (current) use of anticoagulants; F03.90 Unspecified dementia, unspecified severity, without behavioral disturbance, psychotic disturbance, mood disturbance, and anxiety; I10 Essential (primary) hypertension; G47.30 Sleep apnea, unspecified; I48.91 Unspecified atrial fibrillation; Y73.2 Prosthetic and other implants, materials and accessory gastroenterology and urology devices associated with adverse incidents
CPT/HCPCS: 43762; 99283

== ENCOUNTER 2022-12-29 19:02 | Emergency (ER) | payer MEDICARE, SELFPAY ==
--- NOTE | ~2022-12-29 | XR_ITS ---
CORRECTED REPORT exam description change 01/04/23 [facility] [place] was recreated on 01/04/23. Original report was C EXAM: XR abdomen gastric tube insert DATE: 12/29/2022 19:56 HISTORY: g tube replacement . COMPARISON: 12/28/2022. FINDINGS: A G-tube terminates over the midline. Contrast partially fills an otherwise normal-appearing stomach. Contrast has moved distally to the duodenal C-loop and into jejunal loops. No contrast extravasation. Contrast is present and more distal large bowel from yesterday's study. IMPRESSION: G-tube appears to be in good position. Reviewed, dictated and finalized at location K. MTDD
[2022-12-29 19:05] VITALS: BP 148/83; PULSE 73; RESP 18; TEMP 36.6; O2SAT 99
--- NOTE | 2022-12-29 19:30 | PC.NURSE ---
Area surrounding G tube WNL. Clean, dry, and intact. Pt has no complaints. Dr. Frazier at bedside to replace tube.
--- NOTE | 2022-12-29 20:19 | ED.GENADULT ---
HPI - General Adult General Chief complaint: Unspecified Stated complaint: DISLODGED G-TUBE Time Seen by Provider: 12/29/22 19:05 History of Present Illness HPI narrative: Patient 71-year-old female presents emerged from with chief complaint of pulled G-tube out. Patient has a G-tube after having a prior stroke and actually recently had a replacement in the emergency department after the tube was dislodged. Patient reports today they were removing the patient and pulled the tube and it dislodged the tube was placed as a placeholder until the patient can get to the emergency department. Related Data Home Medications Medication Instructions Recorded Confirmed acetaminophen 325 mg tablet 650 mg PO Q6H PRN Pain (Scale 11/19/22 11/19/22 Score 1-3) Miralax 17 g PO DAILY constipation 11/22/22 11/22/22 acetaminophen 650 mg feeding tube Q6H 11/22/22 11/22/22 amlodipine 5 mg feeding tube DAILY 11/22/22 11/22/22 apixaban 5 mg tablet (Eliquis) 5 mg feeding tube BID 11/22/22 11/22/22 melatonin 3 mg feeding tube HS PRN Sleep 11/22/22 11/22/22 rivastigmine tartrate 3 mg feeding tube BID 11/22/22 11/22/22 sennosides-docusate sodium 8.6 - 50 mg feeding tube HS PRN 11/22/22 11/22/22 Constipation Allergies Allergy/AdvReac Type Severity Reaction Status Date / Time No Known Drug Allergies AdvReac Unknown Verified 12/28/22 00:22 Review of Systems Review of Systems: A 10 system review of systems was completed on the patient and is negative except for what is stated in the HPI. Nursing and ancillary documentation was reviewed. 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 Social History Social History Social History: Surrogate medical decision maker: Kaylynn Jurado, . Code status: Full code. Smoking status: Never smoker Second hand tobacco smoke exposure: No Alcohol intake: former Drinks per week: 1 Alcohol use details: wine Substance use: never Substance use type: does not use Lack of Transportation: No Lack of Food: Never True Current Housing: I Have Housing Concerned About Future Housing: No Difficulty Paying Gas/Electric Bills: No Difficulty Paying for Meds: No Currently Unemployed: No Education: Master's Degree or Higher Difficulty w/ Childcare or Family Care: No Living arrangements: with family Additional living arrangements comments: Prior to her recent hospitalization she was living with her in [place]. 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 Gender identity (if verbalized by the patient): Male Spiritual care concerns: No Exam Narrative:
--- NOTE | 2022-12-29 21:20 | PC.NURSE ---
Call [place] at 7 to cancel Transport. Parmar Eta [phone].
[2022-12-29 21:26] VITALS: BP 154/64; PULSE 98; RESP 16; O2SAT 99
== END 2022-12-29 22:00 ==
PROVIDERS: Emergency Provider Emergency Medicine; PCP Internal Medicine
DX: Z43.1 Encounter for attention to gastrostomy (principal); F03.90 Unspecified dementia, unspecified severity, without behavioral disturbance, psychotic disturbance, mood disturbance, and anxiety; I48.0 Paroxysmal atrial fibrillation; I10 Essential (primary) hypertension; I73.9 Peripheral vascular disease, unspecified; G47.33 Obstructive sleep apnea (adult) (pediatric); M81.0 Age-related osteoporosis without current pathological fracture; R73.03 Prediabetes; Z86.73 Personal history of transient ischemic attack (TIA), and cerebral infarction without residual deficits; Z79.01 Long term (current) use of anticoagulants; Z90.49 Acquired absence of other specified parts of digestive tract
CPT/HCPCS: 43762; 49465; 99284

== ENCOUNTER 2022-12-30 14:38 | Inpatient (IN) | payer MEDICARE, SELFPAY ==
[2022-12-30] VITALS (35 sets, daily range): BP systolic 84–164; BP diastolic 46–107; PULSE 61–83; RESP 17–31; TEMP 36.5–37.1; O2SAT 81–100; BMI 19.3
--- NOTE | ~2022-12-30 | XR_ITS ---
XR chest 1V portable 01/04/2023 05:37 Indication: Pneumonia Procedure: AP portable chest Comparison: Comparison to multiple prior studies sequentially, with oldest reviewed study dated 09/10. Findings: Asymmetric left-sided airspace disease. Small left effusion. There is right apical pleural thickening/scarring. Right subclavian PICC line tip in the SVC. Borderline heart size. Right lung angela ar. Impression: 1: Asymmetric left-sided airspace disease which may represent pneumonia and/or asymmetric edema. Reviewed, dictated and finalized at location A. Impression: 1: Asymmetric left-sided airspace disease which may represent pneumonia and/or asymmetric edema.
--- NOTE | ~2022-12-30 | CT_ITS ---
EXAMINATION: CT chest abdomen pelvis w con DATE: 12/30/2022 16:36 INDICATION: Aspiration. Pneumonia. Abdominal distention. Leukocytosis. TECHNIQUE: Computed tomography (CT) of the chest, abdomen, and pelvis was performed with 100 mL Omnip aque 350 intravenous contrast. Automated exposure control and iterative reconstruction technique were employed. The dose-length product was 432.82 mGy-cm. COMPARISON: CT abdomen and pelvis 11/23/2022 FINDINGS: CHEST CT: There is mild scarring at the lung apices. There are scattered centrilobular nodules in all lobes. Th ere are confluent airspace and groundglass opacities in left lower lobe. No pleural effusion. The hea rt size is normal. There are coronary artery calcifications. No pericardial effusion. There is mild c hronic anterior wedging of multiple midthoracic vertebral bodies. ABDOMEN/PELVIS CT: The liver is normal. There are changes of cholecystectomy. The spleen, pancreas, adrenal glands, and left kidney are normal. There are cysts in the kidneys measuring up to 11 mm on the right. There is a gastrostomy tube in expected position. There is a Bravo catheter in expected position. There are no dilated loops of bowel. The appendix is not visualized. There is fat stranding around the rectum. The re is a small sliding hiatal hernia. There are no pathologically enlarged lymph nodes. There is no fr ee intraperitoneal fluid. There is a 3.0 cm mass in left ovary. Again seen is a displaced subcapital fracture of right femoral neck. There is a burst fracture of L1 with 3/5 loss of height and retropuls ion of bone 5 mm into central spinal canal, worsened from 11/23/2022. IMPRESSION: 1. Diffuse lung disease, consistent with pneumonia. 2. 3.0 cm mass in left ovary, which may be benign or less likely malignant. Pelvis ultrasound is sonia mmended. 3. Subacute displaced subcapital fracture of right femoral neck again seen. 4. Worsened subacute burst fracture of L1. 5. Fat stranding around the rectum with improvement from 11/23/2022, consistent with inflammation. Reviewed, dictated and finalized at location A. IMPRESSION: 1. Diffuse lung disease, consistent with pneumonia. 2. 3.0 cm mass in left ovary, which may be benign or less likely malignant. Pel vis ultrasound is recommended. 3. Subacute displaced subcapital fracture of right femoral neck again seen. 4. Worsened subacute burst fracture of L1. 5. Fat stranding around the rectum with improvement from 11/23/2022, consistent with inflammation.
[2022-12-30 15:21] LABS: Hematocrit 38.1 % (37.0-47.0); Hemoglobin 11.8 g/dL (12.0-15.0); Mean Corpuscular Hemoglobin 26.4 pg (26-34); Mean Corpuscular Volume 85.2 fl (80-100); Mean Platelet Volume 10.7 fl (7.4-10.4); Platelet Count Result 470 k/mm3 (150-375); Red Blood Count 4.47 M/mm3 (4.2-5.4); Red Cell Distribution Width 17.4 % (11.5-14.5); White Blood Count 16.6 K/mm3 (4.5-10.0)
[2022-12-30 15:34] LABS: Alanine Aminotransferase 41 U/L (6-35); Albumin Level 4.3 g/dL (3.5-5.1); Alkaline Phosphatase 130 U/L (38-126); Anion Gap 8 mmol/L (8-16); Aspartate Amino Transferase 37 U/L (14-36); Bilirubin,Total 0.5 mg/dL (0.2-1.3); Blood Urea Nitrogen 27 mg/dL (7-17); Calcium 9.7 mg/dL (8.4-10.2); Carbon Dioxide 29 mmol/L (22-30); Chloride 95 mmol/L (98-107); Estimated CRCL calculation 39 ml/min; Estimated Glomerular Filt Rate 54; Glucose 103 mg/dL (65-110); Lipase 398 U/L (23-300); Potassium 4.6 mmol/L (3.4-5.0); Sodium 132 mmol/L (137-145)
[2022-12-30 15:37] LABS: Bacteria Urine 4+ /hpf; Need Manual Microscopic Reviewed; Non Pathogenic Casts >20; RBC Urine >100 /hpf (0-2); Squamous Epithelial Cell Urine Moderate /hpf (Few); WBC Urine >100 /hpf
[2022-12-30 15:40] LABS: Appearance Urine Cloudy (Clear); Bilirubin Urine 1+ (Negative); Blood Urine 3+ (Negative); Color Urine Orange (Yellow); Glucose Urine UA Negative (Negative); Ketones Urine 1+ mg/dL (Negative); Leukocyte Esterase Ur 3+ LEU/UL (Negative); Nitrate Urine Positive (Negative); Protein Urine 3+ mg/dL (Negative); pH Urine 6.5 (5.0-9.0)
[2022-12-30 15:48] LABS: Band Neutrophils Percent 3 % (0-6); Lymphocytes Absolute Manual 0.16 K/mm3 (1.1-4.5); Neutrophils Absolute Manual 16.43 K/mm3 (1.7-7.2); Neutrophils Percent Manual 96 % (46-73); Platelet Estimate Increased (Adequate); Total Cells Counted 100
[2022-12-30 15:49] LABS: Anisocytosis 2+ (NORMAL); Hypochromasia 1+ (NORMAL); Schistocytes None Seen (NORMAL)
[2022-12-30 15:58] LABS: Add Urine Microscopic? YES
--- NOTE | 2022-12-30 16:14 | ED.ABDPAIN ---
HPI - Abdominal Pain General Chief Complaint: Abdominal Pain <MARLI Donovan Last Filed: 12/30/22 19:37> Stated Complaint: abd distention <MARLI Donovan Last Filed: 12/30/22 19:37> Time Seen by Provider: 12/30/22 14:56 <MARLI Donovan Last Filed: 12/30/22 19:37> Source: patient, family and old records reviewed <MARLI Donovan Last Filed: 12/30/22 19:37> Mode of arrival: EMS <MARLI Donovan Last Filed: 12/30/22 19:37> Limitations: clinical condition <MARLI Donovan Last Filed: 12/30/22 19:37> History of Present Illness HPI narrative: Patient is a 77-year-old female, with past medical history of recent CVA with dysphagia/aphasia, G-tube, chronic indwelling Bravo catheter, who presents to the ED via EMS with report of abdominal distention. at bedside assisted in providing information. Patient is currently residing in the [facility] [place]. reports patient has been seen for the last 2 days in the ED for dislodged G-tube. It has been replaced and confirmed by x-ray imaging. Today, patient reports patient was not doing well at physical therapy and he asked them to stop. When she was brought back to her room she became cold and clammy. reports patient then coughed and aspirated on her phlegm. Patient became hypoxic and required oxygen supplementation with [place]. Patient does not usually wear oxygen. Staff also noticed that patient's abdomen seemed distended and firm. EMS was then called. Patient denies any pain currently. She denies nausea. Denies chest pain. No recent fevers. She did have liquid stools yesterday. Patient sustained a vertebral burst fx and R hip fx in her fall/CVA in October. She was not felt to be an operative candidate at this time given comorbidities. Saw Dr. Moreland. <MARLI Donovan Last Filed: 12/30/22 19:37> Related Data Home Medications: Home Medications Medication Instructions Recorded Confirmed acetaminophen 325 mg tablet 650 mg PO Q6H PRN Pain (Scale 11/19/22 11/19/22 Score 1-3) Miralax 17 g PO DAILY constipation 11/22/22 11/22/22 acetaminophen 650 mg feeding tube Q6H 11/22/22 11/22/22 amlodipine 5 mg feeding tube DAILY 11/22/22 11/22/22 apixaban 5 mg tablet (Eliquis) 5 mg feeding tube BID 11/22/22 11/22/22 melatonin 3 mg feeding tube HS PRN Sleep 11/22/22 11/22/22 rivastigmine tartrate 3 mg feeding tube BID 11/22/22 11/22/22 sennosides-docusate sodium 8.6 - 50 mg feeding tube HS PRN 11/22/22 11/22/22 Constipation <Barbara Loredo PA-C - Last Filed: 12/30/22 19:37> Allergies/Adverse Reactions: Allergies Allergy/AdvReac Type Severity Reaction Status Date / Time No Known Drug Allergies AdvReac Unknown Verified 12/28/22 00:22 <Barbara Loredo PA-C - Last Filed: 12/30/22 19:37> Review of Systems Review of Systems: CONSTITUTIONAL: Denies fever, chills, or sweats. CARDIOVASCULAR: Denies chest pain. RESPIRATORY: See HPI. GASTROINTESTINAL: See HPI. GENITOURINARY: Denies dysuria or hematuria. SKIN: Denies rash or itching. MUSCULOSKELETAL: Denies back pain, joint pain, or myalgia. NEUROLOGIC: Denies headache, numbness. <Barbara Loredo PA-C - Last Filed: 12/30/22 19:37> All systems reviewed & are unremarkable except as noted in HPI and below <Barbara Loredo PA-C - Last Filed: 12/30/22 19:37> PMF[facility] Past Medical History Medical History: Medical History Adult BMI <19 kg/sq m BMI 20.0-20.9, adult Cataracts, bilateral Chronic anticoagulation Cognitive dysfunction Dementia Dementia Encounter to establish care Follow up Fracture of femoral neck, right Hypertension Impaired functional mobility, balance, gait, and endurance Intraparenchymal hemorrhage of brain Ischemic cerebrovascular accident (CVA) Obstructive slee
[2022-12-30] MEDS: SODIUM CHLORIDE 0.9% IV 1,000 ML 999 ML IV CONT ×2 (16:18→18:21)
[2022-12-30 18:04] LABS: Lactic Acid Reflex 2.2 mmol/L (0.7-2.0)
[2022-12-30] MEDS: AMPICILLIN SULB 3 GM/NS 100 ML 3 GM/100 ML VIAL IVPB ×2 (18:17→23:06)
--- NOTE | 2022-12-30 19:58 | ADMGEN ---
This patient, Shelly Mims, was admitted to Medical Room 256-. Patient/family oriented to hospital policies and general routines including ID bracelet, bed and alarms, visiting hours, pain management, procedures, bathroom and other care routines, personal items, smoking policy, room service/diet, and visiting hours. Information on how to activate the Rapid Response Team has been discussed. Patient/Family are encouraged to report perceived risks to care and to ask questions if they do not understand what they are told or what they should do.
[2022-12-30 20:50] LABS: Reflex Lactic Acid Yes or No Add Lactic
--- NOTE | 2022-12-30 21:09 | PM.IMHP ---
H&P: HPI History of Present Illness Date/Time: 12/30/22 21:09 Chief Complaint: Abdominal pain Narrative: This is a 77-year-old female patient has had multiple medical history including a recent CVA with dysphagia and aphasia. She currently has a G-tube and receives tube feedings. She also has a chronic indwelling Bravo catheter. This was not changed in the emergency room and was changed on the nursing unit. It was reported that the patient has abdominal distention. The patient resides at [facility] for rehab. It was reported that the patient had been seen for the last 2 days in the ER for dislodged G-tube. It has been replacing confirmed by x-ray imaging. Today the patient became cold and clammy. The reports that the patient coughed and aspirated on some phlegm. She became hypoxic and required oxygen supplement at the [facility]. She does not typically wear oxygen. Staff noticed that the patient had a distended abdomen. No emesis was noted no nausea vomiting or diarrhea. No fevers. The patient did have liquid stools yesterday. 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 She was not a good operative candidate at that time. Her white count was noted to be 16.6. Sodium is 132. Chloride 95. Lactic acid is 2.2 and is down to 1.7. Her urine was positive for UTI. The patient was given Unasyn and IV fluids. CT of the abdomen chest pelvis was read as the following 1. Diffuse lung disease, consistent with pneumonia. 2. 3.0 cm mass in left ovary, which may be benign or less likely malignant. Pelvis ultrasound is recommended. 3. Subacute displaced subcapital fracture of right femoral neck again seen. 4. Worsened subacute burst fracture of L1. 5. Fat stranding around the rectum with improvement from 11/23/2022, consistent with inflammation. The patient is being admitted to observation status on the date of service of 12/30/2022 Review of Systems Review of Systems: All systems reviewed & are unremarkable except as noted in HPI and below Constitutional: Constitutional: Reports as per HPI and Reports no additional constitutional complaints Eyes: Eyes: Reports as per HPI and Reports no additional eye complaints ENT: Reports system reviewed and no additional complaints, except as documented and Reports Normal hearing present Cardiovascular: Cardiovascular: Reports no additional cardiovascular complaints Respiratory: Respiratory: Reports no additional respiratory complaints and Reports no additional respiratory complaints Gastrointestinal: Gastrointestinal: Reports as per HPI and Reports no additional gastrointestinal complaints Musculoskeletal: Musculoskeletal: Reports no additional musculoskeletal complaints Integumentary/Breasts: Skin/Breast: Reports system reviewed and no additional complaints, except as docu and Reports as per HPI Neurologic: Reports system reviewed and no additional complaints, except as documented, Reports as per HPI and Reports Normal hearing present Psychiatric: Psychiatric: Reports no additional psychiatric complaints and Reports as per HPI Endocrine: Endocrine: Reports no additional endocrine complaints Hematologic/Lymphatic: Hematologic/Lymphatic: Reports no additional hematologic/lymphatic complaints Allergic/Immunologic: Allergic/Immunologic: Reports no additional allergic/immunologic complaints [facility] Past Medical History Medical History (Updated 12/30/22 @ 23:28 by Crystal Cole NP) Adult BMI <19 kg/sq m BMI 20.0-20.9, adult Cataracts, bilateral Chronic anticoagulation Cognitive dysfunction Dementia Dementia Encounter to establish care Follow up Fracture of femoral neck, right G tube feedings Hypertension Hypothyroidism Impaired functional mobility, balance, gait, and endurance Intraparenchymal hemorrhage of brain Ischemic cerebrovascular accident (CVA) Neurogenic bladder Obstructive sleep apnea
[2022-12-30 21:28] LABS: Lactic Acid 1.7 mmol/L (0.7-2.0)
[2022-12-30] MEDS: AMIODARONE HCL 200 MG TABLET FEED TUBE (23:43)
[2022-12-30] MEDS: APIXABAN 5 MG TABLET FEED TUBE (23:43)
[2022-12-30] MEDS: GABAPENTIN 100 MG CAPSULE FEED TUBE (23:44)
[2022-12-30] MEDS: METOPROLOL TARTRATE 50 MG TAB FEED TUBE (23:44)
[2022-12-31] VITALS (19 sets, daily range): BP systolic 123–153; BP diastolic 44–55; PULSE 64–78; RESP 14–20; TEMP 37.1–37.2; O2SAT 92–98; BMI 19.3
[2022-12-31] MEDS: IPRATROPIUM BR 0.02% INH SOLN 0.5 MG/2.5 ML VIAL INHALATION ×4 (03:19→20:16)
[2022-12-31] MEDS: ALBUTEROL SULFATE NEB 2.5 MG/3 ML INH INHALATION ×4 (03:19→20:16)
[2022-12-31] MEDS: AMPICILLIN SULB 3 GM/NS 100 ML 3 GM/100 ML VIAL IVPB ×3 (05:34→17:12)
[2022-12-31] MEDS: LEVOTHYROXINE SODIUM 50 MCG TABLET PO (05:35)
[2022-12-31] MEDS: METOPROLOL TARTRATE 50 MG TAB FEED TUBE ×3 (05:35→21:15)
[2022-12-31 05:37] LABS: Basophils Percent Auto 0.3 % (0.2-1.2); Eosinophils Percent Auto 0.2 % (0-4.4); Hematocrit 32.9 % (37.0-47.0); Hemoglobin 10.3 g/dL (12.0-15.0); Immature Granulocyte Absolute 0.04 K/mm3 (0.00-0.031); Immature Granulocyte Percent A 0.3 % (0-0.5); Lymphocytes Absolute Auto 0.83 K/mm3 (0.9-3.2); Lymphocytes Percent Auto 6.7 % (18.3-44.2); Mean Corpuscular HGB Conc 31.3 g/dl (32-36); Mean Corpuscular Hemoglobin 26.9 pg (26-34); Mean Corpuscular Volume 85.9 fl (80-100); Mean Platelet Volume 10.9 fl (7.4-10.4); Monocytes Absolute Auto 0.8 K/mm3 (0.1-0.6); Monocytes Percent Auto 6.1 % (2.6-8.5); Neutrophils Absolute Auto 10.7 K/mm3 (1.3-6.7); Neutrophils Percent Auto 86.4 % (45.5-73.1); Platelet Count Result 359 k/mm3 (150-375); Red Blood Count 3.83 M/mm3 (4.2-5.4); Red Cell Distribution Width 17.8 % (11.5-14.5); White Blood Count 12.4 K/mm3 (4.5-10.0)
[2022-12-31 05:48] LABS: Lactic Acid Reflex 1.5 mmol/L (0.7-2.0)
[2022-12-31 05:53] LABS: Anion Gap 3 mmol/L (8-16); Blood Urea Nitrogen 23 mg/dL (7-17); Calcium 8.1 mg/dL (8.4-10.2); Carbon Dioxide 28 mmol/L (22-30); Chloride 102 mmol/L (98-107); Estimated CRCL calculation 58 ml/min; Estimated Glomerular Filt Rate > 60; Glucose 97 mg/dL (65-110); Lipase 42 U/L (23-300); Magnesium 2.3 mg/dL (1.6-2.3); Potassium 4.5 mmol/L (3.4-5.0); Sodium 133 mmol/L (137-145)
[2022-12-31 07:45] LABS: Free T4 Free Thyroxine Reflex 2.83 ng/dL (0.78-2.19)
[2022-12-31] MEDS: SODIUM BICARBONATE TAB 650 MG TABLET FEED TUBE (09:14)
[2022-12-31] MEDS: APIXABAN 5 MG TABLET FEED TUBE ×2 (09:14→16:28)
[2022-12-31] MEDS: AMIODARONE HCL 200 MG TABLET FEED TUBE ×2 (09:14→21:15)
[2022-12-31] MEDS: amLODIPine BESYLATE 5 MG TABLET FEED TUBE (09:14)
[2022-12-31] MEDS: MEMANTINE 10 MG TABLET FEED TUBE (09:15)
[2022-12-31] MEDS: RIVASTIGMINE TARTRATE 4.6 MG PATCH 1 PATCH TRANSDERM (09:16)
[2022-12-31] MEDS: EUCERIN CREAM 120 GM JAR 1 APPLIC TOPICAL (09:16)
--- NOTE | 2022-12-31 14:28 | WPDPN ---
Progress Note: A&P Assessment and Plan (1) Aspiration pneumonia: Code(s): J69.0 - Pneumonitis due to inhalation of food and vomit Status: Acute Assessment and Plan: The patient was started on Unasyn. It was felt that the patient aspirated on her own saliva. She has tube feedings and does not typically eat orally or take medication orally. Blood and urine cultures are pending. I will add nebulizer treatments as well. In the patient's group home paper states that she is a DNR however her stated that she is a DNI. Her white count is 16.6. Her blood pressure was initially on the low side but is now elevated. Her heart rate is normal. And her pulse ox is 99-100% now. White count is 16.6. 12/31/2022 interval history: Patient is 77-year-old female with history of CVA and bedridden presented with nausea or vomiting suspect patient may have aspirated and has pneumonia being treated with ampicillin, patient unable to provide any review of symptom, her is present in the room states is feeling much better compared to when she arrived, will continue to monitor and further recommendation to follow, will have a PT OT evaluate the patient. (2) Urinary tract infection: Qualifiers: Hematuria presence: with hematuria Urinary tract infection type: acute cystitis Qualified Code(s): N30.01 - Acute cystitis with hematuria Code(s): N39.0 - Urinary tract infection, site not specified Status: Acute Assessment and Plan: The patient is currently on Unasyn. Blood in urine cultures are pending. The patient has a chronic indwelling Bravo catheter. The Bravo catheter was changed on the nursing unit. (3) History of CVA (cerebrovascular accident): Code(s): Z86.73 - Personal history of transient ischemic attack (TIA), and cerebral infarction without residual deficits Status: Acute Assessment and Plan: The patient has dysphagia and is receiving tube feedings. She also has expressive aphasia. (4) Anxiety: Code(s): F41.9 - Anxiety disorder, unspecified Status: Acute Assessment and Plan: She is not currently on any medication at this time for anxiety. I can order her some p.r.n. Ativan. (5) Atrial fibrillation: Code(s): I48.91 - Unspecified atrial fibrillation Status: Acute Assessment and Plan: Continue with her medications per G-tube the GT appears to be in place on her CT scan. Continue with amiodarone. Continue with metoprolol (6) Severe obstructive sleep apnea: Code(s): G47.33 - Obstructive sleep apnea (adult) (pediatric) Status: Acute Assessment and Plan: Continue with home settings. (7) Dementia: Code(s): F03.90 - Unspecified dementia, unspecified severity, without behavioral disturbance, psychotic disturbance, mood disturbance, and anxiety Status: Acute Assessment and Plan: Continue with Namenda and continue with rivastigmine per G-tube. (8) Hypertension: Qualifiers: Hypertension type: primary hypertension Qualified Code(s): I10 - Essential (primary) hypertension Code(s): I10 - Essential (primary) hypertension Status: Acute Assessment and Plan: Her blood pressure is elevated to 164/58 continue with metoprolol per G-tube and amlodipine. She is also 5 on amiodarone with the AFib. (9) Paroxysmal atrial fibrillation: Code(s): I48.0 - Paroxysmal atrial fibrillation Status: Acute Assessment and Plan: Continue with amiodarone and check thyroid level. Continue with metoprolol And Eliquis. (10) Hypothyroidism: Code(s): E03.9 - Hypothyroidism, unspecified Status: Acute Assessment and Plan: Check thyroid level continue levothyroxine Subjective Date/time seen: 12/31/22 14:28 Interval history: Abdominal pain HPI-Narrative: This is a 77-year-old female patient has had multiple medical history including a recent CVA w
[2022-12-31] MEDS: GABAPENTIN 100 MG CAPSULE FEED TUBE (21:15)
[2022-12-31] MEDS: MELATONIN 5 MG TABLET PO (21:15)
--- NOTE | 2022-12-31 23:22 | PC.NURSE ---
PT IS INCREASINGLY RESTLESS. I NOTICED HER G TUBE WAS BLEEDING AND HANGING OUT OF ABDOMINAL BINDER IF SHE HAD BEEN PULLING AT IT. PT WAS RECENTLY AT [facility] WITH DISLODGED G TUBE. PT HAS ALSO BEEN PULLING OFF CPAP RECENTLY AND PULLED OUT IV ACCESS.
[2023-01-01] VITALS (15 sets, daily range): BP systolic 140–165; BP diastolic 46–56; PULSE 0–82; RESP 15–23; TEMP 36.3–36.4; O2SAT 95–98
--- NOTE | 2023-01-01 05:47 | PCRCNOTE ---
Pt was given 0200 TX. MAR still down at 0548
[2023-01-01] MEDS: IPRATROPIUM BR 0.02% INH SOLN 0.5 MG/2.5 ML VIAL INHALATION ×3 (07:47→20:50)
[2023-01-01] MEDS: ALBUTEROL SULFATE NEB 2.5 MG/3 ML INH INHALATION ×3 (07:47→20:50)
--- NOTE | 2023-01-01 08:18 | P.CDI_ITS ---
CDI Query Clarification Request Urine culture for 12/30/22 grew > 100,000 Staphylococcus aureus. Chronic indwelling joshua catheter documented. Patient started on Unasyn 3 gm IV Q 6 hours. Clarification request - UTI has been documented, chronic indwelling joshua catheter documented. Please clarify if UTI is: * due to/associated with chronic indwelling joshua catheter * not due to/associated with chronic indwelling joshua catheter * unable to determine <Yazmin Fiore RN - Last Filed: 01/01/23 08:21> Provider Comments due to/associated with chronic indwelling joshua catheter <Analy Freitas MD - Last Filed: 01/21/23 07:26>
[2023-01-01] MEDS: EUCERIN CREAM 120 GM JAR 1 APPLIC TOPICAL (09:55)
[2023-01-01] MEDS: APIXABAN 5 MG TABLET FEED TUBE ×2 (09:55→18:15)
[2023-01-01] MEDS: AMIODARONE HCL 200 MG TABLET FEED TUBE ×2 (09:55→21:02)
[2023-01-01] MEDS: MEMANTINE 10 MG TABLET FEED TUBE (09:55)
[2023-01-01] MEDS: amLODIPine BESYLATE 5 MG TABLET FEED TUBE (09:55)
--- NOTE | 2023-01-01 10:22 | P.CDI_ITS ---
CDI Query Clarification Request BMI 19.3 Nutritional Diagnostic Statement Severe Protein Calorie Malnutrition as related to increase protein-energy needs in setting of chronic disease as evidence by severe subcutaneous fat loss (orbital fat pads) and severe muscle wasting (Temporalis) and 3+ pitting edema noted on right foot. Please refer to the comprehensive Nutrition assessment for further information. Please clarify severity of protein calorie malnutrition if known * Mild * Moderate * Severe * Other/ Unspecified <Yazmin Fiore RN - Last Filed: 01/01/23 10:29> Provider Comments Patient has severe protein calori malnutrition <Analy Freitas MD - Last Filed: 01/21/23 07:28>
--- NOTE | 2023-01-01 11:48 | PCNFU ---
Nutrition Follow-Up Complete: Severe Protein Calorie Malnutrition as related to increase protein-energy needs in setting of chronic disease as evidenced by severe subcutanious fat loss (orbital fat pads) and severe muscle wasting (temporalis) and 3+ pitting edema noted on right foot. goal: Meet estimated nutritional needs Patient is progressing towards goal. We will continue current goal. Pt current nutrition is Jevity 1.5. Nutrition recommendation: Jevity 1.2 at 20 advance by 5 ml q 6 hours to goal rate of 45 ml/hr Last recorded weight is 54.2 kg. Bowel Motility:No Bm reported. Labs Reviewed:No new labs to report. Meds Noted: Albuterol Skin: WNL Additional Notes: Patient starting on G tube feedings of Jevity 1.5 at 20 ml/hr advance by 5 ml q 6 hours to goal rate of 45 ml/hr. Tube feeding goal rate providing 1485 kcals/63 gms protein/752 ml water. Flush 100 ml q 6 hours. Tube feedings meeting 100% kcal needs at 27 kcal/kg and 100% protein needs at 0.8-1.0 gm/kg. Banatrol Plus TF prebiotic ordered BID. Agree with diet orders. Will monitor weight, labs, skin, tube feeding tolerance every Wednesday and Wednesday.
[2023-01-01] MEDS: SODIUM BICARBONATE TAB 650 MG TABLET FEED TUBE (12:11)
[2023-01-01] MEDS: RIVASTIGMINE TARTRATE 4.6 MG PATCH 1 PATCH TRANSDERM (12:14)
[2023-01-01] MEDS: AMPICILLIN SULB 3 GM/NS 100 ML 3 GM/100 ML VIAL IVPB ×3 (12:16→23:38)
--- NOTE | 2023-01-01 12:45 | WPDPN ---
Progress Note: A&P Assessment and Plan (1) Aspiration pneumonia: Code(s): J69.0 - Pneumonitis due to inhalation of food and vomit Status: Acute Assessment and Plan: The patient was started on Unasyn. It was felt that the patient aspirated on her own saliva. She has tube feedings and does not typically eat orally or take medication orally. Blood and urine cultures are pending. I will add nebulizer treatments as well. In the patient's [facility] paper states that she is a DNR however her stated that she is a DNI. Her white count is 16.6. Her blood pressure was initially on the low side but is now elevated. Her heart rate is normal. And her pulse ox is 99-100% now. White count is 16.6. 01/01/2023 interval history: Patient is 77-year-old female with history of CVA and bedridden with spinal compression fracutre and CVA presented with nausea or vomiting suspect patient may have aspirated and has pneumonia being treated with ampicillin, blood culture no growth so far, urine culture is growing MRSA and starte patient on vancomycin, patient on Gtube feeding, after discussing with clinical nurse, will resume tube feeding at lower rate, patient unable to provide any review of symptom, her is present in the room states is feeling much better compared to when she arrived, will continue to monitor and further recommendation to follow, will have a PT OT evaluate the patient. (2) Urinary tract infection: Qualifiers: Hematuria presence: with hematuria Urinary tract infection type: acute cystitis Qualified Code(s): N30.01 - Acute cystitis with hematuria Code(s): N39.0 - Urinary tract infection, site not specified Status: Acute Assessment and Plan: The patient is currently on Unasyn. Blood in urine cultures are pending. The patient has a chronic indwelling Bravo catheter. The Bravo catheter was changed on the nursing unit. (3) History of CVA (cerebrovascular accident): Code(s): Z86.73 - Personal history of transient ischemic attack (TIA), and cerebral infarction without residual deficits Status: Acute Assessment and Plan: The patient has dysphagia and is receiving tube feedings. She also has expressive aphasia. (4) Anxiety: Code(s): F41.9 - Anxiety disorder, unspecified Status: Acute Assessment and Plan: She is not currently on any medication at this time for anxiety. I can order her some p.r.n. Ativan. (5) Atrial fibrillation: Code(s): I48.91 - Unspecified atrial fibrillation Status: Acute Assessment and Plan: Continue with her medications per G-tube the GT appears to be in place on her CT scan. Continue with amiodarone. Continue with metoprolol (6) Severe obstructive sleep apnea: Code(s): G47.33 - Obstructive sleep apnea (adult) (pediatric) Status: Acute Assessment and Plan: Continue with home settings. (7) Dementia: Code(s): F03.90 - Unspecified dementia, unspecified severity, without behavioral disturbance, psychotic disturbance, mood disturbance, and anxiety Status: Acute Assessment and Plan: Continue with Namenda and continue with rivastigmine per G-tube. (8) Hypertension: Qualifiers: Hypertension type: primary hypertension Qualified Code(s): I10 - Essential (primary) hypertension Code(s): I10 - Essential (primary) hypertension Status: Acute Assessment and Plan: Her blood pressure is elevated to 164/58 continue with metoprolol per G-tube and amlodipine. She is also 5 on amiodarone with the AFib. (9) Paroxysmal atrial fibrillation: Code(s): I48.0 - Paroxysmal atrial fibrillation Status: Acute Assessment and Plan: Continue with amiodarone and check thyroid level. Continue with metoprolol And Eliquis. (10) Hypothyroidism: Code(s): E03.9 - Hypothyroidism, unspecified Status: Acute Assessment and Plan: Ch
[2023-01-01] MEDS: LIDOCAINE HCL 1% PF INJ 5 ML VIAL INFILTRATE (14:45)
[2023-01-01] MEDS: VANCOMYCIN 1,000 MG/NS 250 ML 1,000 MG/250 ML BAG 250 MG IVPB (15:23)
[2023-01-01] MEDS: METOPROLOL TARTRATE 50 MG TAB FEED TUBE ×2 (15:30→21:02)
[2023-01-01] MEDS: CENTRAL LINE FLUSH 10 ML IV PUSH (21:02)
[2023-01-01] MEDS: GABAPENTIN 100 MG CAPSULE FEED TUBE (21:02)
[2023-01-02] VITALS (18 sets, daily range): BP systolic 116–153; BP diastolic 58–91; PULSE 68–110; RESP 14–23; TEMP 36.3–36.7; O2SAT 92–97
[2023-01-02] MEDS: ALBUTEROL SULFATE NEB 2.5 MG/3 ML INH INHALATION ×3 (02:39→14:55)
[2023-01-02] MEDS: IPRATROPIUM BR 0.02% INH SOLN 0.5 MG/2.5 ML VIAL INHALATION ×3 (02:39→14:55)
[2023-01-02] MEDS: AMPICILLIN SULB 3 GM/NS 100 ML 3 GM/100 ML VIAL IVPB ×3 (05:48→18:45)
[2023-01-02] MEDS: CENTRAL LINE FLUSH 10 ML IV PUSH ×3 (05:49→20:51)
[2023-01-02] MEDS: LEVOTHYROXINE SODIUM 50 MCG TABLET PO (06:01)
[2023-01-02] MEDS: METOPROLOL TARTRATE 50 MG TAB FEED TUBE ×3 (06:01→20:50)
[2023-01-02 06:09] LABS: Estimated CRCL calculation 70 ml/min; Estimated Glomerular Filt Rate > 60
[2023-01-02] MEDS: RIVASTIGMINE TARTRATE 4.6 MG PATCH 1 PATCH TRANSDERM (09:40)
[2023-01-02] MEDS: APIXABAN 5 MG TABLET FEED TUBE ×2 (09:41→18:45)
[2023-01-02] MEDS: SODIUM BICARBONATE TAB 650 MG TABLET FEED TUBE (09:41)
[2023-01-02] MEDS: MEMANTINE 10 MG TABLET FEED TUBE (09:41)
[2023-01-02] MEDS: AMIODARONE HCL 200 MG TABLET FEED TUBE ×2 (09:41→20:50)
[2023-01-02] MEDS: VANCOMYCIN 1,000 MG/NS 250 ML 1,000 MG/250 ML BAG 250 MG IVPB (09:43)
[2023-01-02] MEDS: EUCERIN CREAM 120 GM JAR 1 APPLIC TOPICAL (09:43)
[2023-01-02] MEDS: amLODIPine BESYLATE 5 MG TABLET FEED TUBE (09:46)
[2023-01-02] MEDS: ACETAMINOPHEN 325 MG TABLET 650 MG FEED TUBE ×2 (09:51→20:50)
[2023-01-02 12:37] LABS: Glucose Point of Care 148 mg/dl (65-105)
[2023-01-02 13:02] LABS: Hematocrit 30.5 % (37.0-47.0); Hemoglobin 9.7 g/dL (12.0-15.0); Mean Corpuscular HGB Conc 31.8 g/dl (32-36); Mean Platelet Volume 10.8 fl (7.4-10.4); Platelet Count Result 329 k/mm3 (150-375); Red Blood Count 3.59 M/mm3 (4.2-5.4); Red Cell Distribution Width 17.2 % (11.5-14.5); White Blood Count 11.6 K/mm3 (4.5-10.0)
[2023-01-02 13:18] LABS: Anion Gap 4 mmol/L (8-16); Blood Urea Nitrogen 10 mg/dL (7-17); Calcium 8.3 mg/dL (8.4-10.2); Carbon Dioxide 29 mmol/L (22-30); Chloride 102 mmol/L (98-107); Estimated CRCL calculation 85 ml/min; Estimated Glomerular Filt Rate > 60; Glucose 132 mg/dL (65-110); Magnesium 1.9 mg/dL (1.6-2.3); Potassium 3.2 mmol/L (3.4-5.0); Sodium 135 mmol/L (137-145)
--- NOTE | 2023-01-02 15:08 | WPDPN ---
Progress Note: A&P Assessment and Plan (1) Aspiration pneumonia: Code(s): J69.0 - Pneumonitis due to inhalation of food and vomit Status: Acute Assessment and Plan: The patient was started on Unasyn. It was felt that the patient aspirated on her own saliva. She has tube feedings and does not typically eat orally or take medication orally. Blood and urine cultures are pending. I will add nebulizer treatments as well. [facility] the [facility] paper states that she is a DNR however her stated that she is a DNI. Her white count is 16.6. Her blood pressure was initially on the low side but is now elevated. Her heart rate is normal. And her pulse ox is 99-100% now. White count is 16.6. 01/02/2023 interval history: Patient is 77-year-old female with history of CVA and bedridden with spinal compression fracture and CVA presented with nausea or vomiting suspect patient may have aspirated and has pneumonia being treated with ampicillin, blood culture no growth so far, urine culture is growing MRSA and started patient on vancomycin, her white counts trending down, will repeat chest x-ray on WednesdayJanuary 04, patient on Gtube feeding, after discussing with juice weigher, resumed tube feeding at lower rate patient is able tolerate and had a BM, patient unable to provide any review of symptom, her is present in the room states is feeling much better compared to when she arrived, will continue to monitor and further recommendation to follow, will have a PT OT evaluate the patient. (2) Urinary tract infection: Qualifiers: Hematuria presence: with hematuria Urinary tract infection type: acute cystitis Qualified Code(s): N30.01 - Acute cystitis with hematuria Code(s): N39.0 - Urinary tract infection, site not specified Status: Acute Assessment and Plan: The patient is currently on Unasyn. Blood in urine cultures are pending. The patient has a chronic indwelling Bravo catheter. The Bravo catheter was changed on the nursing unit. (3) History of CVA (cerebrovascular accident): Code(s): Z86.73 - Personal history of transient ischemic attack (TIA), and cerebral infarction without residual deficits Status: Acute Assessment and Plan: The patient has dysphagia and is receiving tube feedings. She also has expressive aphasia. (4) Anxiety: Code(s): F41.9 - Anxiety disorder, unspecified Status: Acute Assessment and Plan: She is not currently on any medication at this time for anxiety. I can order her some p.r.n. Ativan. (5) Atrial fibrillation: Code(s): I48.91 - Unspecified atrial fibrillation Status: Acute Assessment and Plan: Continue with her medications per G-tube the GT appears to be in place on her CT scan. Continue with amiodarone. Continue with metoprolol (6) Severe obstructive sleep apnea: Code(s): G47.33 - Obstructive sleep apnea (adult) (pediatric) Status: Acute Assessment and Plan: Continue with home settings. (7) Dementia: Code(s): F03.90 - Unspecified dementia, unspecified severity, without behavioral disturbance, psychotic disturbance, mood disturbance, and anxiety Status: Acute Assessment and Plan: Continue with Namenda and continue with rivastigmine per G-tube. (8) Hypertension: Qualifiers: Hypertension type: primary hypertension Qualified Code(s): I10 - Essential (primary) hypertension Code(s): I10 - Essential (primary) hypertension Status: Acute Assessment and Plan: Her blood pressure is elevated to 164/58 continue with metoprolol per G-tube and amlodipine. She is also 5 on amiodarone with the AFib. (9) Paroxysmal atrial fibrillation: Code(s): I48.0 - Paroxysmal atrial fibrillation Status: Acute Assessment and Plan: Continue with amiodarone and check thyroid level. Continue with metoprolol And Eliquis. (10) H
[2023-01-02 18:21] LABS: Glucose Point of Care 146 mg/dl (65-105)
[2023-01-02] MEDS: MELATONIN 5 MG TABLET PO (20:50)
[2023-01-02] MEDS: GABAPENTIN 100 MG CAPSULE FEED TUBE (20:50)
[2023-01-03] VITALS (22 sets, daily range): BP systolic 149–168; BP diastolic 62–65; PULSE 65–83; RESP 16–24; TEMP 36.2–36.7; O2SAT 94–98
[2023-01-03] MEDS: AMPICILLIN SULB 3 GM/NS 100 ML 3 GM/100 ML VIAL IVPB ×4 (01:45→17:25)
[2023-01-03] MEDS: IPRATROPIUM BR 0.02% INH SOLN 0.5 MG/2.5 ML VIAL INHALATION ×4 (02:02→20:19)
[2023-01-03] MEDS: ALBUTEROL SULFATE NEB 2.5 MG/3 ML INH INHALATION ×4 (02:02→20:19)
[2023-01-03 02:03] LABS: Glucose Point of Care 135 mg/dl (65-105)
[2023-01-03] MEDS: VANCOMYCIN 1,000 MG/NS 250 ML 1,000 MG/250 ML BAG 250 MG IVPB (03:20)
[2023-01-03] MEDS: METOPROLOL TARTRATE 50 MG TAB FEED TUBE ×3 (06:17→20:28)
[2023-01-03] MEDS: LEVOTHYROXINE SODIUM 50 MCG TABLET PO (06:17)
[2023-01-03] MEDS: CENTRAL LINE FLUSH 10 ML IV PUSH ×3 (06:18→22:19)
[2023-01-03 06:48] LABS: Glucose Point of Care 122 mg/dl (65-105)
[2023-01-03 07:09] LABS: Anion Gap 7 mmol/L (8-16); Blood Urea Nitrogen 10 mg/dL (7-17); Calcium 8.1 mg/dL (8.4-10.2); Carbon Dioxide 29 mmol/L (22-30); Chloride 102 mmol/L (98-107); Estimated CRCL calculation 85 ml/min; Estimated Glomerular Filt Rate > 60; Glucose 121 mg/dL (65-110); Magnesium 1.8 mg/dL (1.6-2.3); Potassium 3.2 mmol/L (3.4-5.0); Sodium 138 mmol/L (137-145)
[2023-01-03 07:24] LABS: Hematocrit 29.6 % (37.0-47.0); Hemoglobin 9.3 g/dL (12.0-15.0); Mean Corpuscular HGB Conc 31.4 g/dl (32-36); Mean Platelet Volume 11.1 fl (7.4-10.4); Platelet Count Result 340 k/mm3 (150-375); Red Blood Count 3.44 M/mm3 (4.2-5.4); Red Cell Distribution Width 16.9 % (11.5-14.5); White Blood Count 9.1 K/mm3 (4.5-10.0)
[2023-01-03] MEDS: amLODIPine BESYLATE 5 MG TABLET FEED TUBE (10:27)
[2023-01-03] MEDS: SODIUM BICARBONATE TAB 650 MG TABLET FEED TUBE (10:27)
[2023-01-03] MEDS: APIXABAN 5 MG TABLET FEED TUBE ×2 (10:27→17:26)
[2023-01-03] MEDS: EUCERIN CREAM 120 GM JAR 1 APPLIC TOPICAL (10:27)
[2023-01-03] MEDS: AMIODARONE HCL 200 MG TABLET FEED TUBE ×2 (10:27→20:28)
[2023-01-03] MEDS: MEMANTINE 10 MG TABLET FEED TUBE (10:27)
[2023-01-03] MEDS: POTASSIUM CHLORIDE 20 MEQ PACKET (FOR LIQUID) 40 MEQ PO (10:28)
[2023-01-03] MEDS: RIVASTIGMINE TARTRATE 4.6 MG PATCH 1 PATCH TRANSDERM (10:28)
--- NOTE | 2023-01-03 11:43 | P.PN_ITS ---
Progress Note: A&P Assessment and Plan (1) Aspiration pneumonia: Code(s): J69.0 - Pneumonitis due to inhalation of food and vomit Status: Acute Assessment and Plan: The patient was started on Unasyn. It was felt that the patient aspirated on her own saliva. She has tube feedings and does not typically eat orally or take medication orally. Blood and urine cultures are pending. I will add nebulizer treatments as well. In the patient's skilled nursing paper states that she is a DNR however her stated that she is a DNI. Her white count is 16.6. Her blood pressure was initially on the low side but is now elevated. Her heart rate is normal. And her pulse ox is 99-100% now. White count is 16.6. 01/03/2023 interval history: Patient is 77-year-old female with history of CVA and bedridden with spinal compression fracture and CVA presented with nausea or vomiting suspect patient may have aspirated and has pneumonia being treated with ampicillin,blood culture no growth so far, urine culture is growing MRSA and started patient on vancomycin, her white counts trending down now close to normal, will repeat chest x-ray on WednesdayJanuary 04, patient on Gtube feeding, after discussing with silk screen operator, resumed tube feeding at lower rate patient is able tolerate and had a BM, patient unable to provide any review of symptom, her is present in the room states is feeling much better compared to when she arrived, will continue to monitor and further recommendation to follow, will have a PT OT evaluate the patient. (2) Urinary tract infection: Qualifiers: Hematuria presence: with hematuria Urinary tract infection type: acute cystitis Qualified Code(s): N30.01 - Acute cystitis with hematuria Code(s): N39.0 - Urinary tract infection, site not specified Status: Acute Assessment and Plan: The patient is currently on Unasyn. Blood in urine cultures are pending. The patient has a chronic indwelling Bravo catheter. The Bravo catheter was changed on the nursing unit. (3) History of CVA (cerebrovascular accident): Code(s): Z86.73 - Personal history of transient ischemic attack (TIA), and cerebral infarction without residual deficits Status: Acute Assessment and Plan: The patient has dysphagia and is receiving tube feedings. She also has expressive aphasia. (4) Anxiety: Code(s): F41.9 - Anxiety disorder, unspecified Status: Acute Assessment and Plan: She is not currently on any medication at this time for anxiety. I can order her some p.r.n. Ativan. (5) Atrial fibrillation: Code(s): I48.91 - Unspecified atrial fibrillation Status: Acute Assessment and Plan: Continue with her medications per G-tube the GT appears to be in place on her CT scan. Continue with amiodarone. Continue with metoprolol (6) Severe obstructive sleep apnea: Code(s): G47.33 - Obstructive sleep apnea (adult) (pediatric) Status: Acute Assessment and Plan: Continue with home settings. (7) Dementia: Code(s): F03.90 - Unspecified dementia, unspecified severity, without behavioral disturbance, psychotic disturbance, mood disturbance, and anxiety Status: Acute Assessment and Plan: Continue with Namenda and continue with rivastigmine per G-tube. (8) Hypertension: Qualifiers: Hypertension type: primary hypertension Qualified Code(s): I10 - Essential (primary) hypertension Code(s): I10 - Essential (primary) hypertension Status: Acute Assessment and Plan: Her blood pressure is elevated to 164/58 jose
[2023-01-03 12:03] LABS: Glucose Point of Care 129 mg/dl (65-105)
[2023-01-03 17:47] LABS: Glucose Point of Care 154 mg/dl (65-105)
[2023-01-03] MEDS: ACETAMINOPHEN 325 MG TABLET 650 MG FEED TUBE (20:27)
[2023-01-03] MEDS: GABAPENTIN 100 MG CAPSULE FEED TUBE (20:28)
[2023-01-03] MEDS: MELATONIN 5 MG TABLET PO (20:28)
[2023-01-03 21:15] LABS: Vancomycin Trough 5.4 ug/mL (10.0-20.0)
[2023-01-03] MEDS: VANCOMYCIN 1,250 MG/NS 250 ML 1,250 MG/250 ML BAG 166.67 MG IVPB (22:18)
[2023-01-04] VITALS (11 sets, daily range): BP systolic 139–146; BP diastolic 57–69; PULSE 70–80; RESP 18–20; TEMP 36.9–37.7; O2SAT 95–97; BMI 11.0; BMI 10.0
[2023-01-04 00:04] LABS: Glucose Point of Care 140 mg/dl (65-105)
[2023-01-04] MEDS: IPRATROPIUM BR 0.02% INH SOLN 0.5 MG/2.5 ML VIAL INHALATION ×3 (02:37→13:20)
[2023-01-04] MEDS: ALBUTEROL SULFATE NEB 2.5 MG/3 ML INH INHALATION ×3 (02:37→13:20)
[2023-01-04] MEDS: AMPICILLIN SULB 3 GM/NS 100 ML 3 GM/100 ML VIAL IVPB ×3 (05:09→13:02)
[2023-01-04] MEDS: LEVOTHYROXINE SODIUM 50 MCG TABLET PO (05:09)
[2023-01-04] MEDS: METOPROLOL TARTRATE 50 MG TAB FEED TUBE ×2 (05:09→13:03)
[2023-01-04] MEDS: CENTRAL LINE FLUSH 10 ML IV PUSH ×2 (05:10→13:03)
[2023-01-04 05:40] LABS: Hematocrit 29.1 % (37.0-47.0); Hemoglobin 9.1 g/dL (12.0-15.0); Mean Corpuscular HGB Conc 31.3 g/dl (32-36); Mean Corpuscular Hemoglobin 26.9 pg (26-34); Mean Corpuscular Volume 86.1 fl (80-100); Mean Platelet Volume 10.5 fl (7.4-10.4); Platelet Count Result 346 k/mm3 (150-375); Red Blood Count 3.38 M/mm3 (4.2-5.4); Red Cell Distribution Width 17.1 % (11.5-14.5); White Blood Count 8.4 K/mm3 (4.5-10.0)
[2023-01-04 05:40] LABS: Glucose Point of Care 137 mg/dl (65-105)
[2023-01-04 05:49] LABS: Anion Gap 8 mmol/L (8-16); Blood Urea Nitrogen 11 mg/dL (7-17); Calcium 8.1 mg/dL (8.4-10.2); Carbon Dioxide 27 mmol/L (22-30); Chloride 103 mmol/L (98-107); Estimated CRCL calculation 85 ml/min; Estimated Glomerular Filt Rate > 60; Glucose 126 mg/dL (65-110); Magnesium 1.9 mg/dL (1.6-2.3); Potassium 3.5 mmol/L (3.4-5.0); Sodium 138 mmol/L (137-145)
[2023-01-04 08:57] LABS: Glucose Point of Care 128 mg/dl (65-105)
[2023-01-04] MEDS: MEMANTINE 10 MG TABLET FEED TUBE (09:29)
[2023-01-04] MEDS: APIXABAN 5 MG TABLET FEED TUBE ×2 (09:29→17:39)
[2023-01-04] MEDS: EUCERIN CREAM 120 GM JAR 1 APPLIC TOPICAL (09:29)
[2023-01-04] MEDS: AMIODARONE HCL 200 MG TABLET FEED TUBE (09:29)
[2023-01-04] MEDS: amLODIPine BESYLATE 5 MG TABLET FEED TUBE (09:29)
[2023-01-04] MEDS: SODIUM BICARBONATE TAB 650 MG TABLET FEED TUBE (09:30)
[2023-01-04] MEDS: RIVASTIGMINE TARTRATE 4.6 MG PATCH 1 PATCH TRANSDERM (09:30)
[2023-01-04] MEDS: VANCOMYCIN 1,250 MG/NS 250 ML 1,250 MG/250 ML BAG 166.67 MG IVPB (10:55)
--- NOTE | 2023-01-04 11:16 | PCPTNOTE ---
Attempted to see patient for PT, however patient's and patient declined due to patient's pain at this time. Patient's asked PT to come back later. RN aware.
--- NOTE | 2023-01-04 12:02 | WPDPN ---
Progress Note: A&P Assessment and Plan (1) Aspiration pneumonia: Code(s): J69.0 - Pneumonitis due to inhalation of food and vomit Status: Acute Assessment and Plan: The patient was started on Unasyn. It was felt that the patient aspirated on her own saliva. She has tube feedings and does not typically eat orally or take medication orally. Blood and urine cultures are pending. I will add nebulizer treatments as well. In the patient's retirement paper states that she is a DNR however her stated that she is a DNI. Her white count is 16.6. Her blood pressure was initially on the low side but is now elevated. Her heart rate is normal. And her pulse ox is 99-100% now. White count is 16.6. 01/03/2023 interval history: Patient is 77-year-old female with history of CVA and bedridden with spinal compression fracture and CVA presented with nausea or vomiting suspect patient may have aspirated and has pneumonia being treated with ampicillin,blood culture no growth so far, urine culture is growing MRSA and started patient on vancomycin, her white counts trending down now close to normal, will repeat chest x-ray on WednesdayJanuary 04, patient on Gtube feeding, after discussing with casino duty manager, resumed tube feeding at lower rate patient is able tolerate and had a BM, patient unable to provide any review of symptom, her is present in the room states is feeling much better compared to when she arrived, will continue to monitor and further recommendation to follow, will have a PT OT evaluate the patient. (2) Urinary tract infection: Qualifiers: Hematuria presence: with hematuria Urinary tract infection type: acute cystitis Qualified Code(s): N30.01 - Acute cystitis with hematuria Code(s): N39.0 - Urinary tract infection, site not specified Status: Acute Assessment and Plan: The patient is currently on Unasyn. Blood in urine cultures are pending. The patient has a chronic indwelling Bravo catheter. The Bravo catheter was changed on the nursing unit. (3) History of CVA (cerebrovascular accident): Code(s): Z86.73 - Personal history of transient ischemic attack (TIA), and cerebral infarction without residual deficits Status: Acute Assessment and Plan: The patient has dysphagia and is receiving tube feedings. She also has expressive aphasia. (4) Anxiety: Code(s): F41.9 - Anxiety disorder, unspecified Status: Acute Assessment and Plan: She is not currently on any medication at this time for anxiety. I can order her some p.r.n. Ativan. (5) Atrial fibrillation: Code(s): I48.91 - Unspecified atrial fibrillation Status: Acute Assessment and Plan: Continue with her medications per G-tube the GT appears to be in place on her CT scan. Continue with amiodarone. Continue with metoprolol (6) Severe obstructive sleep apnea: Code(s): G47.33 - Obstructive sleep apnea (adult) (pediatric) Status: Acute Assessment and Plan: Continue with home settings. (7) Dementia: Code(s): F03.90 - Unspecified dementia, unspecified severity, without behavioral disturbance, psychotic disturbance, mood disturbance, and anxiety Status: Acute Assessment and Plan: Continue with Namenda and continue with rivastigmine per G-tube. (8) Hypertension: Qualifiers: Hypertension type: primary hypertension Qualified Code(s): I10 - Essential (primary) hypertension Code(s): I10 - Essential (primary) hypertension Status: Acute Assessment and Plan: Her blood pressure is elevated to 164/58 continue with metoprolol per G-tube and amlodipine. She is also 5 on amiodarone with the AFib. (9) Paroxysmal atrial fibrillation: Code(s): I48.0 - Paroxysmal atrial fibrillation Status: Acute Assessment and Plan: Continue with amiodarone and check thyroid level. Continue with metoprolol And
[2023-01-04 12:26] LABS: Glucose Point of Care 128 mg/dl (65-105)
--- NOTE | 2023-01-04 13:02 | PM.DS ---
DS: Admitting Diagnosis Discharge Date 01/04/2023 Admitting Diagnosis Abdominal pain DS: Discharge Diagnosis Discharge Diagnosis (1) Aspiration pneumonia: Code(s): J69.0 - Pneumonitis due to inhalation of food and vomit Status: Acute (2) Urinary tract infection: Qualifiers: Hematuria presence: with hematuria Urinary tract infection type: acute cystitis Qualified Code(s): N30.01 - Acute cystitis with hematuria Code(s): N39.0 - Urinary tract infection, site not specified Status: Acute (3) History of CVA (cerebrovascular accident): Code(s): Z86.73 - Personal history of transient ischemic attack (TIA), and cerebral infarction without residual deficits Status: Acute (4) Anxiety: Code(s): F41.9 - Anxiety disorder, unspecified Status: Acute (5) Atrial fibrillation: Code(s): I48.91 - Unspecified atrial fibrillation Status: Acute (6) Severe obstructive sleep apnea: Code(s): G47.33 - Obstructive sleep apnea (adult) (pediatric) Status: Acute (7) Dementia: Code(s): F03.90 - Unspecified dementia, unspecified severity, without behavioral disturbance, psychotic disturbance, mood disturbance, and anxiety Status: Acute (8) Hypertension: Qualifiers: Hypertension type: primary hypertension Qualified Code(s): I10 - Essential (primary) hypertension Code(s): I10 - Essential (primary) hypertension Status: Acute (9) Paroxysmal atrial fibrillation: Code(s): I48.0 - Paroxysmal atrial fibrillation Status: Acute (10) Hypothyroidism: Code(s): E03.9 - Hypothyroidism, unspecified Status: Acute DS: Summary Hospital Course Reason for hospitalization: Abdominal pain Narrative: This is a 77-year-old female patient has had multiple medical history including a recent CVA with dysphagia and aphasia.? She currently has a G-tube and receives tube feedings.? She also has a chronic indwelling Bravo catheter.? This was not changed in the emergency room and was changed on the nursing unit.? It was reported that the patient has abdominal distention.? The patient resides at [facility] for rehab.? It was reported that the patient had been seen for the last 2 days in the ER for dislodged G-tube.? It has been replacing confirmed by x-ray imaging.? Today the patient became cold and clammy.? The reports that the patient coughed and aspirated on some phlegm.? She became hypoxic and required oxygen supplement at the detention.? She does not typically wear oxygen.? Staff noticed that the patient had a distended abdomen.? No emesis was noted no nausea vomiting or diarrhea.? No fevers.? The patient did have liquid stools yesterday.? 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 Her white count was noted to be 16.6.? Sodium is 132.? Chloride 95.? Lactic acid is 2.2 and is down to 1.7.? Her urine was positive for UTI.? The patient was given Unasyn and IV fluids.? CT of the abdomen chest pelvis was read as the following?1. Diffuse lung disease, consistent with pneumonia. 2. 3.0 cm mass in left ovary, which may be benign or less likely malignant. Pelvis ultrasound is recommended. 3. Subacute displaced subcapital fracture of right femoral neck again seen. 4. Worsened subacute burst fracture of L1. 5. Fat stranding around the rectum with improvement from 11/23/2022, consistent with inflammation. The patient is being admitted to observation status on the date of service of 12/30/2022 Hospital Course: ?Patient is 77-year-old female with history of CVA and bedridden with spinal compression fracture and CVA presented with nausea or vomiting suspect patient may have aspirated and has pneumonia being treated with ampicillin,blood culture no growth so far, urine culture is growing MRSA and started patient o
[2023-01-04 17:31] LABS: Glucose Point of Care 133 mg/dl (65-105)
[2023-01-04] MEDS: NEOMYCIN/POLYMYXIN/BACITRACIN OINTMENT PACKET 1 PACKET (17:39)
== END 2023-01-04 18:05 | DRG 177 ==
LOC: ANHED 17:08 → ANH2MED 18:52
PROVIDERS: Nurse Practitioner; Admitting Provider Internal Medicine; Emergency Provider Physician Assistant; PCP Internal Medicine; Visit Provider Family Medicine
DX: J69.0 Pneumonitis due to inhalation of food and vomit (principal); E43 Unspecified severe protein-calorie malnutrition; S72.011A Unspecified intracapsular fracture of right femur, initial encounter for closed fracture; T83.511A Infection and inflammatory reaction due to indwelling urethral catheter, initial encounter; N39.0 Urinary tract infection, site not specified; Z68.1 Body mass index [BMI] 19.9 or less, adult; I69.391 Dysphagia following cerebral infarction; R13.10 Dysphagia, unspecified; B95.62 Methicillin resistant Staphylococcus aureus infection as the cause of diseases classified elsewhere; I69.320 Aphasia following cerebral infarction; F41.9 Anxiety disorder, unspecified; G47.33 Obstructive sleep apnea (adult) (pediatric); F03.90 Unspecified dementia, unspecified severity, without behavioral disturbance, psychotic disturbance, mood disturbance, and anxiety; I10 Essential (primary) hypertension; I48.0 Paroxysmal atrial fibrillation; E03.9 Hypothyroidism, unspecified; M41.9 Scoliosis, unspecified; Z93.1 Gastrostomy status; S32.011D Stable burst fracture of first lumbar vertebra, subsequent encounter for fracture with routine healing; Z87.820 Personal history of traumatic brain injury; Z90.49 Acquired absence of other specified parts of digestive tract; W19.XXXA Unspecified fall, initial encounter
CPT/HCPCS: 36415; 36569; 43762; 49465; 71045; 71260; 74177; 80048; 80053; 80202; 81001; 82565; 82948; 83605; 83690; 83735; 84439; 84443; 85025; 85027; 87040; 87086; 87147; 87186; 94640; 96361; 96365; 97110; 97161; 97166; 97530; 97535; 99283; 99284; 99285; A9270; C1751; G0378; J0295; J3370; J7030; Q9967

== ENCOUNTER 2023-03-29 10:22 | Outpatient (CLI) | payer MEDICARE, SELFPAY ==
--- NOTE | ~2023-03-29 | XR_ITS ---
MODIFIED ESOPHAGRAM HISTORY: Dysphagia falling cerebral infarction. TECHNIQUE: Modified barium esophagram was performed on 03/29/2023. I administered fluoroscopy and per formed the exam with speech pathologist. Patient was seated for lateral fluoroscopic imaging for ing estion of thin liquids, pudding, solids and quantified amounts, followed by thin liquids in uncontrol led amounts. This was recorded on tape. A single fluoroscopic spot image was also recorded. The DAP f or this procedure was 1.905 Gycm2. The amount of fluoroscopy time used during this procedure was 3.0 minutes. FINDINGS: Oral stage: Adequate function. Pharyngeal stage: Reduced laryngeal elevation and abduction. There is also reduced tongue base retrac tion and pharyngeal squeeze. This contributes to vallecular and piriform sinus residue. Small amount of laryngeal penetration without aspiration. Cervical/esophageal stage: Adequate function. IMPRESSION: Pharyngeal dysphagia with laryngeal penetration but without aspiration. Please correlate with speech pathologist findings and specific feeding recommendations. Reviewed, dictated and finalized at location A. IMPRESSION: Pharyngeal dysphagia with laryngeal penetration but without aspirat ion. Please correlate with speech pathologist findings and specific feeding re commendations.
--- NOTE | 2023-03-29 13:31 | REHSTMBS ---
Assessment and note entered by Angelic Velzi, RACING SECRETARY AND HANDICAPPER Modified Barium Swallow Evaluation Feeding Type Recommended Oral Food Consistency Pureed, Level 4 Liquid Consistency Moderately Thick (3) Treatment Recommendations Effortful Swallow,Laryngeal Elevation Exerc,Tongue Base Exercise,Vocal Fold Adduction Exer ST Clinical Summary MODIFIED BARIUM SWALLOW STUDY This patient was seen for a Modified Barium Swallow study at the request of her physician. 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 Patient has been on a stomach tube since that time for all nutrition and hydration. She was seen briefly in November here at [facility] for receptive/ expressive aphasia. Therapist could not find references to swallow evaluations following the reported date of the CVA. reported that patient has had two Modified Barium Swallow studies while at [facility]. He stated that patient had been given small bites/sips of oral diet from the speech pathologist at [facility] and she reported no problems. This MBS today was completed because wants to be able to feed patient food/liquid at their home in independent living at the [facility]. Patient was viewed in the lateral position to the level of C5/C6. Patient was presented first with pudding mixed with semi-solid contrast medium, then moderately thick (honey) liquid contrast medium. She refused cracker at this time. Patient also was presented with mildly thick (nectar) liquid contrast medium. Patient was able to tolerate 1/2 to 1 teaspoon of the semi-solid mixture along with moderately thick liquid. There was considerable residue in the valleculae and the pyriform sinuses with secondary swallows elicited at therapist request facilitating adequate clearing. There was noted penetration into the upper laryngeal vestibule with thin liquid contrast medium and mildly thick liquid contrast medium. Results indicate this patient may have trials of pudding/pureed consistency and moderately or
== END 2023-03-29 10:23 | disposition home or self-care (01) ==
PROVIDERS: PCP Internal Medicine; Visit Provider Internal Medicine
DX: I69.391 Dysphagia following cerebral infarction (principal); R13.13 Dysphagia, pharyngeal phase
CPT/HCPCS: 92611

== ENCOUNTER 2023-05-22 00:28 | Emergency (ER) | payer MEDICARE, SELFPAY ==
[2023-05-22] VITALS (59 sets, daily range): BP systolic 137–177; BP diastolic 54–103; PULSE 54–71; RESP 12–19; TEMP 36.3; O2SAT 96–100
--- NOTE | ~2023-05-22 | XR_ITS ---
EXAMINATION: XR abdomen gastric tube insert INDICATION: G-tube replacement TECHNIQUE: Portable AP KUB-[id number] at 0620 hours COMPARISON: 12/29/2022 FINDINGS: A small amount of injected contrast demonstrates a gastrostomy tube in the distal stomach. The bowel gas pattern is normal. A moderate volume of colonic stool is present. There is a chronic ri ght femoral neck fracture with nonunion. IMPRESSION: 1. G-tube in the stomach. Reviewed, dictated and finalized at location F. T SPECIALIST FOOD DEMONSTRATOR IMPRESSION: 1. G-tube in the stomach.
--- NOTE | 2023-05-22 05:52 | PC.NURSE ---
EDP Dr. Whitfield replaced G tube with a 20F tube.
--- NOTE | 2023-05-22 06:42 | ED.GENADULT ---
HPI - General Adult General Chief complaint: Unspecified Stated complaint: clogged g-tube Time Seen by Provider: 05/22/23 04:08 History of Present Illness HPI narrative: 77-year-old female with G-tube presenting with clogged G-tube. Related Data Home Medications Medication Instructions Recorded Confirmed acetaminophen 650 mg feeding tube Q6H PRN Pain 11/22/22 04/21/23 (Scale Score 1-3) apixaban 5 mg tablet (Eliquis) 5 mg feeding tube BID 11/22/22 04/21/23 melatonin 5 mg feeding tube HS PRN Sleep 11/22/22 04/21/23 sennosides-docusate sodium 8.6 - 50 mg feeding tube HS PRN 11/22/22 04/21/23 Constipation Eucerin 1 applic topical DAILY 12/30/22 04/21/23 memantine 10 mg tablet 10 mg feeding tube BID 03/10/23 04/21/23 atorvastatin 10 mg tablet 10 mg PO DAILY 04/21/23 04/21/23 Allergies Allergy/AdvReac Type Severity Reaction Status Date / Time No Known Drug Allergies AdvReac Unknown Verified 05/22/23 00:40 [facility] Past Medical History Medical History (Updated 05/22/23 @ 06:51 by Issa Whitfield MD) Adult BMI <19 kg/sq m BMI 20.0-20.9, adult Cataracts, bilateral Chronic anticoagulation Cognitive dysfunction Dementia Dementia Dysphagia as late effect of cerebrovascular accident (CVA) Encounter to establish care Excessive salivation Follow up Fracture of femoral neck, right G tube feedings Hospital discharge follow-up Hypertension Hypothyroidism Impaired functional mobility, balance, gait, and endurance Intraparenchymal hemorrhage of brain Ischemic cerebrovascular accident (CVA) Neurogenic bladder Obstructive sleep apnea on CPAP 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 Social History Social History Social History: She is currently at [facility] for rehab. According to the the patient is a DNI Surrogate medical decision maker: Kaylynn Jurado, . Code status: Modified code. DNI Smoking status: Never smoker Second hand tobacco smoke exposure: No Alcohol intake: never Drinks per week: 1 Alcohol use details: wine Substance use: never Substance use type: does not use Lack of Transportation: No Lack of Food: Never True Current Housing: I Have Housing Concerned About Future Housing: No Difficulty Paying Gas/Electric Bills: No Difficulty Paying for Meds: No Currently Unemployed: No Education: Master's Degree or Higher Difficulty w/ Childcare or Family Care: No Living arrangements: with family Additional living arrangements comments: Prior to her recent hospitalization she was living with her in [place]. 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 Gender identity (if verbalized by the patient): Male Spiritual care concerns: No Exam Narrative: APPEARANCE: No apparent distress. Aphasic Head: atraumatic. EYES: EOMI, NOSE: Atraumatic NECK: Trachea midline RESPIRATORY: No increased rate of breathing CARDIOVASCULAR: RRR, ABDOMINAL: G-tube in place, unable to flush, abdomen soft nontender, skin appears healthy MUSCULOSKELETAl: No obvious deformities NEURO: Alert. Moving 4/4 extremities SKI
== END 2023-05-22 08:49 | disposition home or self-care (01) ==
PROVIDERS: Emergency Provider Emergency Medicine; PCP Internal Medicine
DX: Z43.1 Encounter for attention to gastrostomy (principal); F03.90 Unspecified dementia, unspecified severity, without behavioral disturbance, psychotic disturbance, mood disturbance, and anxiety; E03.9 Hypothyroidism, unspecified; I10 Essential (primary) hypertension; I48.0 Paroxysmal atrial fibrillation
CPT/HCPCS: 43762; 99283

== ENCOUNTER 2023-06-16 12:05 | Outpatient (CLI) | payer MEDICARE, SELFPAY ==
[2023-06-16 12:36] LABS: Basophils Absolute Auto 0.1 K/mm3 (0.0-0.1); Basophils Percent Auto 0.8 % (0.2-1.2); Eosinophils Absolute Auto 0.2 K/mm3 (0-0.3); Eosinophils Percent Auto 2.4 % (0-4.4); Hematocrit 42.8 % (37.0-47.0); Immature Granulocyte Absolute 0.02 K/mm3 (0.00-0.031); Immature Granulocyte Percent A 0.3 % (0-0.5); Lymphocytes Absolute Auto 0.84 K/mm3 (0.9-3.2); Lymphocytes Percent Auto 13.5 % (18.3-44.2); Mean Corpuscular HGB Conc 30.4 g/dl (32-36); Mean Corpuscular Hemoglobin 27.2 pg (26-34); Mean Corpuscular Volume 89.5 fl (80-100); Mean Platelet Volume 12.7 fl (7.4-10.4); Monocytes Absolute Auto 0.5 K/mm3 (0.1-0.6); Monocytes Percent Auto 7.6 % (2.6-8.5); Neutrophils Absolute Auto 4.7 K/mm3 (1.3-6.7); Neutrophils Percent Auto 75.4 % (45.5-73.1); Platelet Count Result 293 k/mm3 (150-375); Red Blood Count 4.78 M/mm3 (4.2-5.4); Red Cell Distribution Width 14.6 % (11.5-14.5); White Blood Count 6.2 K/mm3 (4.5-10.0)
[2023-06-16 12:47] LABS: Alanine Aminotransferase 24 U/L (6-35); Albumin Level 4.3 g/dL (3.5-5.1); Alkaline Phosphatase 93 U/L (38-126); Anion Gap 7 mmol/L (8-16); Aspartate Amino Transferase 31 U/L (14-36); Bilirubin,Total 0.6 mg/dL (0.2-1.3); Blood Urea Nitrogen 17 mg/dL (7-17); Calcium 9.6 mg/dL (8.4-10.2); Carbon Dioxide 29 mmol/L (22-30); Chloride 102 mmol/L (98-107); Cholesterol 197 mg/dL (0-200); Estimated Glomerular Filt Rate > 60; Glucose 107 mg/dL (65-110); HDL Direct 97 mg/dL; Potassium 4.1 mmol/L (3.4-5.0); Sodium 138 mmol/L (137-145); Triglycerides 97 mg/dL (<150)
[2023-06-16 12:58] LABS: LDL Cholesterol Direct 69 mg/dL
[2023-06-16 13:03] LABS: Hemoglobin A1C 4.9 % (<5.7)
[2023-06-16 13:46] LABS: Vitamin D 25 Hydroxy 31.5 ng/mL
== END 2023-06-16 12:06 | disposition home or self-care (01) ==
LOC: ANHLAB 12:08
PROVIDERS: PCP Internal Medicine; Referring Provider Internal Medicine Cardiovascular Disease; Visit Provider Internal Medicine
DX: E55.9 Vitamin D deficiency, unspecified (principal); E03.9 Hypothyroidism, unspecified; R73.03 Prediabetes; I69.320 Aphasia following cerebral infarction; Z79.899 Other long term (current) drug therapy; Z13.220 Encounter for screening for lipoid disorders; Z13.6 Encounter for screening for cardiovascular disorders
CPT/HCPCS: 36415; 80053; 80061; 82306; 83036; 84439; 84443; 85025

== ENCOUNTER 2023-08-25 13:37 | Outpatient (CLI) | payer MEDICARE, SELFPAY ==
--- NOTE | ~2023-08-25 | XR_ITS ---
EXAMINATION: XR barium swallow modified DATE: 08/25/2023 14:15 INDICATION: Dysphagia following cerebral infarction. TECHNIQUE: The patient was given barium-containing material of multiple consistencies to swallow by t eleicer speech pathologist while I performed fluoroscopy. Fluoroscopy exposure time was 2.6 minutes. The n umber of fluoroscopy images saved to the PACS was 1. Dose-area product was 1.02 Gy-cm^2. FINDINGS: There was reduced laryngeal elevation and reduced laryngeal adduction. There is laryngeal penetration with mildly thick liquids. There was aspiration with thin liquids via spoon. IMPRESSION: 1. Aspiration. 2. Please refer to the speech therapy report for recommendations. Reviewed, dictated and finalized at location A.
[2023-08-25 14:43] LABS: Hemoglobin 12.6 g/dL (12.0-15.0); Mean Corpuscular HGB Conc 31.5 g/dl (32-36); Mean Corpuscular Hemoglobin 27.9 pg (26-34); Mean Corpuscular Volume 88.5 fl (80-100); Mean Platelet Volume 12.1 fl (7.4-10.4); Platelet Count Result 263 k/mm3 (150-375); Red Blood Count 4.52 M/mm3 (4.2-5.4); Red Cell Distribution Width 17.2 % (11.5-14.5); White Blood Count 7.6 K/mm3 (4.5-10.0)
--- NOTE | 2023-08-25 14:48 | REHSTMBS ---
Assessment and note entered by Angelic Veliz, SOFTWARE DESIGN MANAGER Modified Barium Swallow Evaluation Feeding Type Recommended Oral Food Consistency Minced and Moist, Level 5 Liquid Consistency Moderately Thick (3) Treatment Recommendations Effortful Swallow,Laryngeal Elevation Exerc,Tongue Base Exercise,Vocal Fold Adduction Exer ST Clinical Summary MODIFIED BARIUM SWALLOW STUDY This patient was seen for a repeat Modified Barium Swallow study at the request of her hospitalist. This woman was seen last November,, for an initial Communication Evaluation and given a diagnosis of severe receptive/expression aphasia however, due to severity of deficits, a stomach tube for nutrition/hydration was placed. She had several swallow studies while at [facility] for rehabilitation but returned to [facility] 03/29/23 for a Modified Barium Swallow study which revealed patient could begin Pureed Diet and Moderately Thick Liquids. Hermila, her speech language pathologist requested we look at small pieces of food, crumbles, etc. Today the patient was viewed in the lateral position to the level of C5/C6. She was presented with 1/2 teaspoons of thin and mildly thick liquid and exhibited aspiration on thin liquid with cough/throat clear that was not efficient to clear all the aspirated material, and mild penetration on mildly thick liquid, mostly clearing with the swallow. Patient tolerated small sips per spoon and sips from the cup given moderately thick liquid, pudding, fruit cocktail pieces and multiple crumbles of crackers coated both coated with the semi-solid mixture, all without exhibiting additional penetration or aspiration. Results indicate a mild improvement in swallowing function; patient should remain on Moderately Thick Liquids but there is less likely risk for aspiration, and she is now able to begin chopped foods with moisture such as ground meat in sauce/ gravy. She should continue with direct Speech Therapy for laryngeal adduction, laryngeal elevation, and base of tongue retraction exercises. and Hermila, SANJAY, notified of results and
[2023-08-25 14:51] LABS: Anion Gap 5 mmol/L (8-16); Blood Urea Nitrogen 28 mg/dL (7-17); Calcium 9.5 mg/dL (8.4-10.2); Carbon Dioxide 31 mmol/L (22-30); Chloride 99 mmol/L (98-107); Estimated Glomerular Filt Rate > 60; Glucose 121 mg/dL (65-110); Potassium 4.6 mmol/L (3.4-5.0); Sodium 135 mmol/L (137-145)
[2023-08-25 14:57] LABS: INR 1.3
== END 2023-08-25 13:38 | disposition home or self-care (01) ==
PROVIDERS: PCP Internal Medicine; Visit Provider Internal Medicine
DX: I69.391 Dysphagia following cerebral infarction (principal)
CPT/HCPCS: 36415; 80048; 85027; 85610; 92611

== ENCOUNTER 2023-12-31 15:00 | Emergency (ER) | payer MEDICARE, SELFPAY ==
[2023-12-31 15:02] VITALS: BP 116/52; PULSE 53; RESP 17; TEMP 36.7; O2SAT 99
[2023-12-31 15:10] VITALS: PULSE 53
--- NOTE | 2023-12-31 15:11 | ECG_ITS ---
Test Date: 2023-12-31 15:15:00 Measurements Intervals [place] Rate: 54 P: 52 OR: 221 QRS: 33 QRSD: 91 T: 80 QT: 473 QTc: 449 Interpretive Statements SINUS BRADYCARDIA WITH FIRST DEGREE AV BLOCK ST ABNORMALITY IN LAT/HIGH LAT LEADS- CONSIDER ISCHEMIA BASELINE ARTIFACT- I, II, III, AVR, AVL, AVF, V1-V6 ABNORMAL ECG No previous ECG available for comparison Electronically Signed On 01-01-2024 08:45:15 CDT by Seth Hamilton D.O.
[2023-12-31 15:17] VITALS: BP 119/52; PULSE 56; RESP 16; O2SAT 97
[2023-12-31 15:27] LABS: Basophils Absolute Auto 0.1 K/mm3 (0.0-0.1); Basophils Percent Auto 0.8 % (0.2-1.2); Eosinophils Absolute Auto 0.2 K/mm3 (0-0.3); Eosinophils Percent Auto 3.1 % (0-4.4); Hematocrit 36.7 % (37.0-47.0); Hemoglobin 11.6 g/dL (12.0-15.0); Immature Granulocyte Absolute 0.02 K/mm3 (0.00-0.031); Immature Granulocyte Percent A 0.3 % (0-0.5); Lymphocytes Absolute Auto 1.11 K/mm3 (0.9-3.2); Lymphocytes Percent Auto 17.8 % (18.3-44.2); Mean Corpuscular HGB Conc 31.6 g/dl (32-36); Mean Corpuscular Hemoglobin 29.7 pg (26-34); Mean Corpuscular Volume 93.9 fl (80-100); Mean Platelet Volume 12.2 fl (7.4-10.4); Monocytes Absolute Auto 0.7 K/mm3 (0.1-0.6); Monocytes Percent Auto 10.8 % (2.6-8.5); Neutrophils Absolute Auto 4.2 K/mm3 (1.3-6.7); Neutrophils Percent Auto 67.2 % (45.5-73.1); Platelet Count Result 218 k/mm3 (150-375); Red Blood Count 3.91 M/mm3 (4.2-5.4); Red Cell Distribution Width 13.7 % (11.5-14.5); White Blood Count 6.2 K/mm3 (4.5-10.0)
[2023-12-31 15:39] LABS: Alanine Aminotransferase 40 U/L (6-35); Albumin Level 3.7 g/dL (3.5-5.1); Alkaline Phosphatase 80 U/L (38-126); Anion Gap 8 mmol/L (4-12); Aspartate Amino Transferase 29 U/L (14-36); Bilirubin,Total 0.4 mg/dL (0.2-1.3); Blood Urea Nitrogen 35 mg/dL (7-17); Calcium 8.8 mg/dL (8.4-10.2); Carbon Dioxide 29 mmol/L (22-30); Chloride 99 mmol/L (98-107); Estimated CRCL calculation 48 ml/min; Estimated Glomerular Filt Rate > 60; Glucose 110 mg/dL (65-110); Potassium 4.4 mmol/L (3.4-5.0); Sodium 136 mmol/L (137-145)
[2023-12-31 15:51] LABS: Troponin I < 0.012 ng/mL (0.000-0.034)
--- NOTE | 2023-12-31 16:27 | ED.GENADULT ---
HPI - General Adult General Chief complaint: Syncope Stated complaint: syncope Time Seen by Provider: 12/31/23 15:21 History of Present Illness HPI narrative: 78-year-old female presenting to the emergency department for evaluation after having a syncopal episode. Family states that the patient was sitting on the toilet and had witnessed syncope by the home health nurse. and caregiver helped to transfer the patient from the toilet to the wheelchair than to the bed and has been states when the patient laid down the bed that she return to her normal self. At that time he states her blood pressure was low with systolic 109. Upon arrival emergency department patient is at her normal baseline and patient denies any pain or complaints. Related Data Home Medications Medication Instructions Recorded Confirmed acetaminophen 650 mg feeding tube Q6H PRN Pain 11/22/22 08/04/23 (Scale Score 1-3) melatonin 5 mg feeding tube HS PRN Sleep 11/22/22 08/04/23 sennosides-docusate sodium 8.6 - 50 mg feeding tube HS PRN 11/22/22 08/04/23 Constipation Eucerin 1 applic topical DAILY 12/30/22 08/04/23 atorvastatin 10 mg tablet 10 mg PO DAILY 04/21/23 08/04/23 aspirin 81 mg tablet,delayed 81 mg PO DAILY 09/08/23 release cholecalciferol (vitamin D3) 50 50 mcg PO DAILY 09/08/23 mcg (2,000 unit) capsule multivitamin 1 tablet PO DAILY 09/08/23 polyethylene glycol 3350 17 17 g PO DAILY 09/21/23 gram/dose oral powder (Miralax) Allergies Allergy/AdvReac Type Severity Reaction Status Date / Time No Known Drug Allergies AdvReac Unknown Verified 08/04/23 11:23 Review of Systems Review of Systems: All systems reviewed & are unremarkable except as noted in HPI and below PMFSH Past Medical History Medical History (Updated 12/31/23 @ 17:46 by Walt Billings MD) Adult BMI 19-24 kg/sq m Adult BMI <19 kg/sq m BMI 20.0-20.9, adult Cataracts, bilateral Chronic anticoagulation Cognitive dysfunction Dementia Dementia Dysphagia as late effect of cerebrovascular accident (CVA) Encounter for routine adult health examination without abnormal findings Encounter to establish care Excessive salivation Follow up Fracture of femoral neck, right G tube feedings Hospital discharge follow-up Hypertension Hypothyroidism Impaired functional mobility, balance, gait, and endurance Intraparenchymal hemorrhage of brain Ischemic cerebrovascular accident (CVA) Neurogenic bladder Obstructive sleep apnea on CPAP 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 Orthostatic hypertension Osteoporosis Paroxysmal atrial fibrillation Pre-diabetes Scoliosis Small vessel disease Subarachnoid hemorrhage SVT (supraventricular tachycardia) Syncopal episodes Syncope Tachycardia Traumatic brain injury Unintentional weight loss Vitamin D deficiency Weakness Surgical History Surgical History H/O wrist surgery History of cholecystectomy History of laparoscopic cholecystectomy History of percutaneous endoscopic gastrostomy Family History Family History Father Alzheimer's dementia Mother Dementia Bladder infection Mother , sepsis- bladder infection Dementia Sibling No problems noted. Social History Social History Social History: She is currently at [facility] for rehab. According to the the patient is a DNI Surrogate medical decision maker: Kaylynn Jurado, . Code status: Modified code. DNI Smoking status: Never smoker Second hand tobacco smoke exposure: No Alcohol intake: never Drinks per week: 1 Alcohol use details: wine Substance use: never Substance use type: does not use Lack of Transportation: No Lack of Food: Never True Current Housing: I Have Housing Concerned About Future Housing: No Difficulty Paying Gas/Electric Bills:
[2023-12-31 16:28] VITALS: BP 122/59; PULSE 56; RESP 16; O2SAT 100
[2023-12-31 16:34] VITALS: BP 128/52; BP 131/54; PULSE 56; PULSE 57
[2023-12-31 18:24] VITALS: BP 129/50; PULSE 64; RESP 17; O2SAT 100
== END 2023-12-31 19:11 | disposition home or self-care (01) ==
PROVIDERS: Student in an Organized Health Care Education/Training Program; Emergency Provider Emergency Medicine; PCP Internal Medicine
DX: R55 Syncope and collapse (principal); F03.90 Unspecified dementia, unspecified severity, without behavioral disturbance, psychotic disturbance, mood disturbance, and anxiety; E03.9 Hypothyroidism, unspecified; I10 Essential (primary) hypertension; I48.0 Paroxysmal atrial fibrillation; Z86.73 Personal history of transient ischemic attack (TIA), and cerebral infarction without residual deficits
CPT/HCPCS: 36415; 80053; 84484; 85025; 93005; 99284

== ENCOUNTER 2024-03-15 15:27 | Outpatient (CLI) | payer MEDICARE, SELFPAY ==
--- NOTE | ~2024-03-15 | XR_ITS ---
EXAMINATION: XR chest 2V DATE: 03/15/2024 15:51 INDICATION: Long-term current use of anticoagulants. TECHNIQUE: Frontal and lateral views of the chest were obtained. COMPARISON: Chest view 01/04/2023 FINDINGS: There is mild scarring at the lung apices. There are airspace opacities at left lung base. No pleural effusion or pneumothorax. The heart size is normal. There is a closure device at left atri al appendage. Surgical clips in the right upper quadrant are likely from cholecystectomy. IMPRESSION: 1. Airspace opacities at left lung base, consistent with atelectasis/scarring versus pneumonia. Reviewed, dictated and finalized at location A. IMPRESSION: 1. Airspace opacities at left lung base, consistent with atelectasis/scarring v ersus pneumonia.
[2024-03-15 16:31] LABS: Anion Gap 8 mmol/L (4-12); Blood Urea Nitrogen 26 mg/dL (7-17); Calcium 9.2 mg/dL (8.4-10.2); Carbon Dioxide 28 mmol/L (22-30); Chloride 98 mmol/L (98-107); Estimated Glomerular Filt Rate > 60; Glucose 93 mg/dL (65-110); Potassium 4.5 mmol/L (3.4-5.0); Sodium 134 mmol/L (137-145)
[2024-03-15 16:39] LABS: NT Pro B Type Natriuretic Pept 1210 pg/mL (19.9-100)
== END 2024-03-15 15:28 | disposition home or self-care (01) ==
LOC: ANHLAB 15:33
PROVIDERS: PCP Internal Medicine; Visit Provider Internal Medicine
DX: R91.8 Other nonspecific abnormal finding of lung field (principal); R31.9 Hematuria, unspecified; R73.9 Hyperglycemia, unspecified; Z79.01 Long term (current) use of anticoagulants; Z79.899 Other long term (current) drug therapy; I50.9 Heart failure, unspecified; I10 Essential (primary) hypertension
CPT/HCPCS: 36415; 71046; 80048; 83880

== ENCOUNTER 2024-04-13 14:02 | Outpatient (CLI) | payer MEDICARE, SELFPAY ==
[2024-04-13 14:46] LABS: Basophils Absolute Auto 0.1 K/mm3 (0.0-0.1); Basophils Percent Auto 1.3 % (0.2-1.2); Eosinophils Absolute Auto 0.2 K/mm3 (0-0.3); Eosinophils Percent Auto 3.3 % (0-4.4); Hematocrit 40.9 % (37.0-47.0); Hemoglobin 13.2 g/dL (12.0-15.0); Immature Granulocyte Absolute 0.04 K/mm3 (0.00-0.031); Immature Granulocyte Percent A 0.6 % (0-0.5); Mean Corpuscular HGB Conc 32.3 g/dl (32-36); Mean Corpuscular Hemoglobin 30.3 pg (26-34); Mean Platelet Volume 11.6 fl (7.4-10.4); Monocytes Absolute Auto 0.7 K/mm3 (0.1-0.6); Monocytes Percent Auto 10.5 % (2.6-8.5); Neutrophils Absolute Auto 4.1 K/mm3 (1.3-6.7); Neutrophils Percent Auto 65.3 % (45.5-73.1); Platelet Count Result 289 k/mm3 (150-375); Red Blood Count 4.35 M/mm3 (4.2-5.4); Red Cell Distribution Width 13.2 % (11.5-14.5); White Blood Count 6.3 K/mm3 (4.5-10.0)
[2024-04-13 15:18] LABS: Alanine Aminotransferase 38 U/L (6-35); Albumin Level 4.4 g/dL (3.5-5.1); Alkaline Phosphatase 103 U/L (38-126); Anion Gap 10 mmol/L (4-12); Aspartate Amino Transferase 30 U/L (14-36); Bilirubin,Total 0.6 mg/dL (0.2-1.3); Blood Urea Nitrogen 28 mg/dL (7-17); Calcium 9.5 mg/dL (8.4-10.2); Carbon Dioxide 30 mmol/L (22-30); Chloride 95 mmol/L (98-107); Estimated Glomerular Filt Rate > 60; Glucose 98 mg/dL (65-110); Potassium 4.6 mmol/L (3.4-5.0); Sodium 135 mmol/L (137-145)
[2024-04-13 17:41] LABS: Hemoglobin A1C 5.6 % (<5.7)
[2024-04-13 17:42] LABS: Free T4 Free Thyroxine 1.64 ng/mL (0.78-2.19); Vitamin D 25 Hydroxy 72.7 ng/mL
== END 2024-04-13 14:03 | disposition home or self-care (01) ==
LOC: ANHLAB 14:04
PROVIDERS: PCP Internal Medicine; Visit Provider Internal Medicine
DX: E55.9 Vitamin D deficiency, unspecified (principal); E53.8 Deficiency of other specified B group vitamins; E03.9 Hypothyroidism, unspecified; R73.03 Prediabetes; I10 Essential (primary) hypertension
CPT/HCPCS: 36415; 80053; 82306; 82607; 82746; 83036; 84439; 84443; 85025

== ENCOUNTER 2024-08-30 12:10 | Outpatient (CLI) | payer MEDICARE, SELFPAY ==
[2024-08-30 12:41] LABS: Basophils Absolute Auto 0.1 K/mm3 (0.0-0.1); Basophils Percent Auto 0.8 % (0.2-1.2); Eosinophils Absolute Auto 0.2 K/mm3 (0-0.3); Eosinophils Percent Auto 2.8 % (0-4.4); Hematocrit 37.8 % (37.0-47.0); Hemoglobin 12.3 g/dL (12.0-15.0); Immature Granulocyte Absolute 0.04 K/mm3 (0.00-0.031); Immature Granulocyte Percent A 0.6 % (0-0.5); Lymphocytes Absolute Auto 0.84 K/mm3 (0.9-3.2); Lymphocytes Percent Auto 12.9 % (18.3-44.2); Mean Corpuscular HGB Conc 32.5 g/dl (32-36); Mean Corpuscular Hemoglobin 29.9 pg (26-34); Mean Corpuscular Volume 91.7 fl (80-100); Mean Platelet Volume 11.4 fl (7.4-10.4); Monocytes Absolute Auto 0.6 K/mm3 (0.1-0.6); Monocytes Percent Auto 8.6 % (2.6-8.5); Neutrophils Absolute Auto 4.8 K/mm3 (1.3-6.7); Neutrophils Percent Auto 74.3 % (45.5-73.1); Platelet Count Result 266 k/mm3 (150-375); Red Blood Count 4.12 M/mm3 (4.2-5.4); Red Cell Distribution Width 13.3 % (11.5-14.5); White Blood Count 6.5 K/mm3 (4.5-10.0)
[2024-08-30 12:45] LABS: Alanine Aminotransferase 60 U/L (6-35); Albumin Level 3.8 g/dL (3.5-5.1); Alkaline Phosphatase 111 U/L (38-126); Anion Gap 7 mmol/L (4-12); Aspartate Amino Transferase 36 U/L (14-36); Bilirubin,Total 0.4 mg/dL (0.2-1.3); Blood Urea Nitrogen 27 mg/dL (7-17); Calcium 9.1 mg/dL (8.4-10.2); Carbon Dioxide 28 mmol/L (22-30); Chloride 96 mmol/L (98-107); Cholesterol 138 mg/dL (0-200); Estimated Glomerular Filt Rate > 60; Glucose 103 mg/dL (65-110); HDL Direct 73 mg/dL; Potassium 4.8 mmol/L (3.4-5.0); Sodium 131 mmol/L (137-145); Triglycerides 93 mg/dL (<150)
[2024-08-30 12:49] LABS: Hemoglobin A1C 5.5 % (<5.7)
[2024-08-30 12:56] LABS: LDL Cholesterol Direct 33 mg/dL
[2024-08-30 13:16] LABS: Free T4 Free Thyroxine 1.79 ng/dL (0.78-2.19)
--- OUTSIDE RECORDS SUMMARY | 2024-08-30 13:42 | XMS_ITS | Encounter Summary ---
Author Organization [facility] Address [address] [place] [address] Phone Care Team Providers Care Mine Foreman Name Role Phone Jean Paul Newton MD Primary Care Provider [phone] Alejandro Melgar MD Primary Care Provider [phone] Warner Guy MD Unavailable [phone] Encounter Details Date Type Department Care Team (Latest Contact Info) Description 01/07/2022 Orders Only [facility] Scanning, Provider Social History Tobacco Use Types Packs/Day Years Used Date Smoking Tobacco: Never Smokeless Tobacco: Never Comments Unknown Sex and Gender Information Value Date Recorded Sex Assigned at Not on file Legal Sex 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 Gender Identity Female 02/05/2022 7:21 AM CDT Sexual Orientation Straight 02/05/2022 7: 21 AM CDT documented as of this encounter Plan of Treatment Not on file documented as of this encounter Procedures Procedure Name Priority Date/Time Associated Diagnosis Comments SCAN - RADIOLOGY/IMAGING 01/07/2022 documented in this encounter Results * SCAN - RADIOLOGY/IMAGING (01/07/2022) Anatomical Region Laterality Modality Other us Provider Scanning Final Result documented in this encounter Visit Diagnoses Not on filedocumented in this encounter Care Teams Mine Foreman Relationship Specialty Start Date End Date Jean Paul Newton MD [address] [place] [address] PCP - General 04/20/17 09/22/22 Alejandro Melgar MD [address] [place] [address] PCP - General Internal Medicine 09/23/22 Warnre Guy MD [address] [place] [address] Consulting Physician Cardiology 06/22/23 documented as of this encounter
--- OUTSIDE RECORDS SUMMARY | 2024-08-30 13:42 | XMS_ITS | Clinical Summary ---
Author Organization [facility] Address [address] [place] [address] Care Team Providers Care Artistic Director Name Role Phone Unavailable Primary Care Provider Unavailabl e Medications rivastigmine tartrate (EXELON) 3 mg capsule Give 1 capsule via feeding tube twice daily 180 Capsule 2 08/02/2024 10:49 AM TECHNOLOGY SERVICES MANAGER 04/23/2024 Active Encounters Date Type Department Care Team Description 08/01/2024 External Device Data [facility] ABSTRACTION Provider, Abstract 07/06/2024 External Device Data [facility] ABSTRACTION Provider, Abstract 07/05/2024 External Device Data [facility] ABSTRACTION Provider, Abstract 07/04/2024 External Device Data [facility] ABSTRACTION Provider, Abstract from Last 3 Months Social History Tobacco Use Types Packs/Day Years Used Date Smoking Tobacco: Never Assessed Comments Unknown Sex and Gender Information Value Date Recorded Sex Assigned at Not on file Legal Sex Female 11:37 AM TECHNOLOGY SERVICES MANAGER Gender Identity Not on file Sexual Orientation Not on file Plan of Treatment Health Maintenance Due Date Last Done Comments DTAP/TDAP/TD VACCINES (1 - Tdap) 1965 PNEUMOCOCCAL VACCINE 50+ YEARS (1 of 1 - PCV) 07/14/18 97 ZOSTER VACCINE (1 of 2) 1996 OSTEOPOROSIS SCREENING 2011 RSV VACCINE (60+ or ) (1 - 1-dose 75+ series) 2021 INFLUENZA VACCINE (#1) 2024 Insurance RX [employer] Medicare Part D RX [employer] Member Subscriber Plan / Payer (Ef fective for All Dates) Name:Terry Mimsfatimah Huang Relation to Subscriber:Self Name:Shelly Mims Payer ID:Not on file Group ID:[id number] Type:RX [place] Address: [address]
--- OUTSIDE RECORDS SUMMARY | 2024-08-30 13:42 | XMS_ITS | Continuity of Care Document ---
Author Name Auto Generated, Auto Generated Organization [facility] Support Name Relationship Address Phone Kaylynn Jurado Emergency Contact 1 [address] [place] [address] Unavailable Shelly Mims Self [address] [place] [address] Unavailable AdrienKaylynn moreno Financial Responsible [employer] [address] [place] [address] Unavailable Kaylynn Jurado Spouse [address] [place] [address] Unavailable Elizabeth Marcus Supply Chain Generalist [address] [place] [address] Unavailable Elizabeth Marcus Emergency Contact 2 [address] [place] [address] Unavailable Rohit, Svetlana Emergency Contact 3 Unknown Unavaila ble Rohit, Svetlana Niece Unknown Unavailable Francesca, Taran Emergency Contact 3 Unknown [phone] Francesca, Taran Nephew Unknown Summary Purpose Consult/Referral Allergies, Adverse Reactions, Alerts Type Description/Agent Code Date Allergy Active Date Allergy Inactivated Date of Last Reaction Adverse Reactions Severity Status Comments Source of Information [employer] No Known Allergies Active Patient History Medications No Known Medications Conditions/Problems Problem/Diagnosis Awareness of Diagnosis Code (ICD-10) Onset Date (Start Date) Resolution Date (End Date) Status Source Comments MUSCLE WEAKNESS (GENERALIZED) M62.81 04/28/20 Active Kopjas, Alejandro C UNSPECIFIED DEMENTIA, UNSPECIFIED SEVERITY, WITHOUT BEHAVIORAL DISTURBANCE, PSYCHOTIC DISTURBANCE, MOOD DISTURBANCE, AND ANXIETY F03.90 04/28/20 Active Kopjas, Alejandro C 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 04/28/20 Active Kopjas, Alejandro C PNEUMONITIS DUE TO INHALATION OF FOOD AND VOMIT J69.0 04/28/20 Active Kopjas, Alejandro C OTHER ABNORMALITIES OF GAIT AND MOBILITY R26.89 11/14/20 23 Active Kopisai Alejandro C 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 03/14/20 23 Active Kopisai Alejandro C UNSPECIFIED SEQUELAE OF NONTRAUMATIC SUBARACHNOID HEMORRHAGE I69.00 03/14/20 23 Active Kopisai Alejandro C APHASIA FOLLOWING OTHER CEREBROVASCULAR DISEASE I69.820 03/14/20 23 Active Kopisai Alejandro C CEREBROVASCULAR DISEASE, UNSPECIFIED I67.9 02/23/20 23 Active Kopisai Alejandro C APRAXIA FOLLOWING CEREBRAL INFARCTION I69.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 02/23/20 23 Active Kopisai Alejandro C DYSARTHRIA FOLLOWING CEREBRAL INFARCTION I69.322 02/23/20 23 Active Kopisai Alejandro C UNSPECIFIED SEQUELAE OF OTHER NONTRAUMATIC INTRACRANIAL HEMORRHAGE I69.20 02/23/20 23 Active Jean-Claudepisai Alejandro C GENERALIZED ANXIETY DISORDER F41.1 01/05/20 23 Active Ramón Alejandro C HYPO-OSMOLALITY AND HYPONATREMIA E87.1 01/05/20 23 Active Kopisai Alejandro C ALLOY WEIGHER (CURRENT) USE OF OPIATE ANALGESIC Z79.891 01/05/20 23 Active Ramón Alejandro C ESSENTIAL (PRIMARY) HYPERTENSION I10 12/04/19 23 Active Ramón Alejandro C ENCOUNTER FOR ATTENTION TO GASTROSTOMY Z43.1 12/04/19 23 Active Ramón Alejandro C HYPOTHYROIDISM, UNSPECIFIED E03.9 12/04/19 23 Active Ramón Alejandro C DYSPHAGIA, OROPHARYNGEAL PHASE R13.12 12/04/19 23 Active Kopisai Alejandro C PRESSURE ULCER OF SACRAL REGION, UNSTAGEABLE L89.150 12/04/19 23 Active Kopisai Alejandro C PAROXYSMAL ATRIAL FIBRILLATION I48.0 12/04/19 23 Active Ramón Alejandro C ALLOY WEIGHER (CURRENT) USE OF ANTICOAGULANTS Z79.01 12/04/19 23 Active Ramón Alejandro C OBSTRUCTIVE SLEEP APNEA (ADULT) (PEDIATRIC) G47.33 12/04/19 23 Active Jean-Claudepisai Alejandro C Z99.89 HISTORY OF FALLING Z91.81 12/04/19 23 Active Kopjas, Alejandro C PERSONAL HISTORY OF TRAUMATIC BRAIN INJURY Z87.820 12/04/19 Active Kopjas, Alejandro C S06.36- FRACTURE OF UNSPECIFIED PART OF NECK OF RIGHT FEMUR, SUBSEQUENT ENCOUNTER FOR CLOSED FRACTURE WITH ROUTINE HEALING S72.001D 12/04/19 Active Kopjas, Alejandro C STABLE BURST FRACTURE OF FIRST LUMBAR VERTEBRA, SUBSEQUENT ENCOUNTER FOR FRACTURE WITH ROUTINE HEALING S32.011D 12/04/19 Active Kopjas, Alejandro C NEUROMUSCULAR DYSFUNCTION OF BLADDER, UNSPECIFIED N31.9 12/04/19 Active Kopjas, Alejandro C RETENTION OF URINE, UNSPECIFIED R33.9 12/04/19 Active Kopjas, Alejandro C PRESENCE OF UROGENITAL IMPLANTS Z96.0 12/04/19 Active Kopjas, Alejandro C INSOMNIA, UNSPECIFIED G47.00 12/04/19 Active Kopjas, Alejandro C SLOW TRANSIT CONSTIPATION K59.01 12/04/19 Active Kopjas, Alejandro C WEAKNESS R53.1 12/04/19 Active Kopjas, Alejandro C UNSTEADINESS ON FEET R26.81 12/04/19 Active Kopjas, Alejandro C SYNCOPE AND COLLAPSE R55 11/23/1902/10/2023 Resolved Kopjas, Alejandro C URINARY TRACT INFECTION, SITE NOT SPECIFIED N39.0 11/23/19 Active Kopjas, Alejandro C PNEUMONIA, UNSPECIFIED ORGANISM J18.9 11/23/19 Active Kopjas, Alejandro C UNSPECIFIED ABNORMAL FINDINGS IN URINE R82.90 11/23/19 23 12/04/2022 Resolved Kopjas, Alejandro C HEMATURIA, UNSPECIFIED R31.9 11/23/19 Active Kopjas, Alejandro C DYSPHAGIA, UNSPECIFIED R13.10 10/28/1912/21/2022 Resolved Kopjas, Alejandro C APHASIA FOLLOWING CEREBRAL INFARCTION I69.320 10/28/19 Active Kopjas, Alejadnro C DYSPHAGIA FOLLOWING CEREBRAL INFARCTION I69.391 10/28/19 Active Kopjas, Alejandro C DORSALGIA, UNSPECIFIED M54.9 09/11/19 Active Kopjas, Alejandro C PAIN IN LEG, UNSPECIFIED M79.606 09/11/19 23 Active Alejandro Melgar OTHER REDUCED MOBILITY Z74.09 09/11/19 23 Active Alejandro Melgar Procedures No Known Procedures
--- OUTSIDE RECORDS SUMMARY | 2024-08-30 13:42 | XMS_ITS | Clinical Summary ---
Author Organization [facility] Address [address] [place] [address] Care Team Providers Care Market Director Name Role Phone Jean Paul Newton MD Primary Care Provider [phone] Allergies Active Allergy Reactions Criticality Noted Date Comments Nystatin Unknown 07/02/1998 allergy_desc: CARBAPENEM Cephalosporins Unknown 07/02/1998 allergy_desc: CEPHALOSPORINS allergy_desc: CEPHALOSPORINS Penicillamine Unknown 07/02/1998 allergy_desc: PENICILLAMINE Penicillins Rash Medium 08/26/2007 Medications memantine 10 MG tablet Take 10 mg by mouth 2 (two) times daily. 10/17/2021 Active Calcium Carbonate Antacid 1000 MG Chew Tab 1,000 mg daily. Active Cholecalciferol 50 MCG (2000 UT) Cap Take by mouth daily. Active fish oil (OMEGA-3 FATTY ACID) 1000 MG Cap capsule Take 1 tablet by mouth daily. 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 Essential tremor 05/01/2021 Vertigo 05/29/2019 Hypertriglyceridemia 07/09/2015 A-fib ([facility]) Family History Medical History Relation Comments No Known Problems Father Dementia Mother Relation Status Comments Father Mother Social History Tobacco Use Types Packs/Day Years Used Date Smoking Tobacco: Never Smokeless Tobacco: Never Alcohol Use Standard Drinks/Week Comments Yes 0 (1 standard drink = 0.6 oz pur e alcohol) Comments Unknown Sex and Gender Information Value Date Recorded Sex Assigned at Not on file Legal Sex Female 4:49 PM CDT Gender Identity Not on file Sexual Orientation Not on file Last Filed Vital Signs Vital Sign Reading Time Taken Comments Blood Pressure 136/64 10/20/2021 11:02 AM CDT Pulse 74 10/20/2021 11:02 AM CDT Temperature - - Respiratory Rate - - Oxygen Saturation 9% 10/20/2021 11:02 AM CDT Inhaled Oxygen Concentration - - Weight 54.4 kg (120 lb) 10/20/2021 11:02 AM CDT Height 166.4 cm (5' 5.5 ) 10/20/2021 11:02 AM CD T Body Mass Index 19.67 10/20/2021 11:02 AM CDT Plan of Treatment Health Maintenance Due Date Last Done Comments Hepatitis C 1963 Annual Medicare Wellness Visit 2011 Dexa Scan (General) 2011 RSV Immunization or 60+ Years (1 - 1-dose 75+ series) 2021 COVID-19 Vaccine ( season) 2024 04/04/2021, 08/08/2020, 07/11/2020 Influenza Adult (#1) 2024 02/23/2019, 02/28/2018, 03/02/2017, Additional history exists DTaP, Tdap and Td Vaccines (3 - Td or Tdap) 12/14/2026 12/14/2016, 03/18/2010 Pneumococcal Vaccine: 65+ Years Completed 03/29/2018, 12/22/2016, 06/02/2016 Zoster Vaccines Completed 02/27/2019, 12/13, 09/27/2018, Additional history exists Meningococcal B Vaccine Aged Out No l onger eligible based on patient's age to complete this topic Meningococcal Vaccine Aged Out No brian burt eligible based on patient's age to complete this topic RSV Immunizations Under 20 Months Aged Out No longer eligible based on patient's age to complete this topic Insurance MEDICARE [facility] MEDICARE [facility] Care Teams Market Director Relationship Specialty Start Date End Date Jean Paul Newton MD [address] [place] [id number] PCP - General INTERNAL MEDICINE 08/28/21
--- OUTSIDE RECORDS SUMMARY | 2024-08-30 13:43 | XMS_ITS | Encounter Summary ---
Author Organization [facility] Address [address] [place] [address] Care Team Providers Care Quartz Cutter Name Role Phone Alejandro Melgar MD Primary Care Provider [phone] Warner Guy MD Unavailable [phone] Encounter Details Date Type Department Care Team (Late st Contact Info) Description 08/10/2024 Results Follow-Up [facility] Cardiology [address] [place] [address] Tab Teague MD [address] [address] Social History Tobacco Use Types Packs/Day Years Used Date Smoking Tobacco: Never Smokeless Tobacco: Never Personal Safety Answer Date Recorded Have you ever been in or are you currently in a harmful physical or emotional relationship or is someone making you feel afraid or unsafe? 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
--- OUTSIDE RECORDS SUMMARY | 2024-08-30 13:43 | XMS_ITS | Clinical Summary ---
Author Organization [facility] Address [address] [place] [address] Care Team Providers Care Case Management Rn Name Role Phone Alejandro Melgar MD Primary Care Provider [phone] Warner Guy MD Unavailable [phone] Allergies Active Allergy Reactions Criticality Noted Date Comments Candex (Dextrates) Unknown 07/02/1998 allergy_desc: CARBAPENEM Cephalosporins Unknown 07/02/1998 allergy_desc: CEPHALOSPORINS Nystatin Other (See comments),Unknown Medium 07/02/1998 allergy_desc: CARBAPENEM Penicillamine Unknown 07/02/1998 allergy_desc: PENICILLAMINE Penicillins Rash Medium 08/26/2007 Medications ralxgysp-gbl-ZC -lycopen-lutein 0.4 mg-300 mcg- 250 mcg tabletIndicatio ns:Vitamin Deficiency Prevention Take by mouth 6 Active cholecalciferol , vitamin D3, (VITAMIN D3 ORAL) Take by mouth Active memantine (NAMENDA) 10 mg tablet Take 1 tablet (10 mg total) by mouth 2 (two) times a day 90 tablet 3 2 Active rivastigmine (EXELON) 3 mg capsule Take 1 capsule (3 mg total) by mouth 2 (two) times a day 2 Active levothyroxine (SYNTHROID) 25 mcg tablet 3 Active sodium bicarbonate 650 mg tablet 3 Active melatonin 5 mg tablet Take 0.2 tablets (1 mg total) by mouth daily 3 Active acetaminophen (TYLENOL) 500 mg tablet 3 Active hyoscyamine (LEVSIN) 0.125 mg SL tablet Take 1 tablet (125 mcg total) by mouth 3 (three) times a day as needed 3 Active aspirin 81 mg enteric coated tablet Take 1 tablet (81 mg total) by mouth daily Active lisinopriL (PRINIVIL,ZESTR IL) 20 mg tablet Take 1 tablet (20 mg total) by mouth 2 (two) times a day Active atorvastatin (LIPITOR) 10 mg tabletIndicatio ns:History of CVA (cerebrovascula r accident) Take 1 tablet (10 mg total) by mouth daily 90 tablet 3 4 025 Active senna (SENOKOT) 8.6 mg tablet Take 1 tablet by mouth daily Active spironolactone (ALDACTONE) 25 mg tablet Take 0.5 tablets (12.5 mg total) by mouth daily 30 tablet 3 5 Active metoprolol XL (TOPROL-XL) 25 mg extended release tablet Take 1 tablet (25 mg total) by mouth 2 (two) times a day Active amiodarone (PACERONE) 200 mg tablet TAKE 1 TABLET(200 MG) BY MOUTH DAILY 90 tablet 3 5 Active amiodarone (PACERONE) 200 mg tablet TAKE 1 TABLET(200 MG) BY MOUTH DAILY 90 tablet 2 4 025 Discontinued Active Problems Problem Noted Date Diagnosed Date Mixed hyperlipidemia 07/05/2024 Presence of left atrial appendage closure device 10/05/2023 Afib 09/07/2023 CVA, old, aphasia 03/09/2023 SDH (subdural hematoma) 03/09/2023 H/O syncope 03/09/2023 At high risk for falls 03/09/2023 Primary hypertension 03/09/2023 Paroxysmal atrial flutter 03/09/2023 Other thrombophilia 10/22/2022 Syncope and collapse 03/11/2022 Paroxysmal atrial fibrillation 03/11/2022 Alzheimer's disease 10/17/2021 Age-related osteoporosis volodymyr west current pathological fracture 06/27/2018 Overview (10/03/2019): Zoledronic acid 08/17/2018. Calcium, vitamin-D daily Hx: Zoledronic acid 3 prior doses last 2012 Hx: Fracture clavicle, wrist Resolved Problems Problem Noted Date Diagnosed Date Resolved Date Chronic anticoagulation 03/09/202306/15 Encounters Date Type Department Care Team Description 08/10/2024 Results Follow-Up [facility] Cardiology [address] [place] [address] [address] [place] [phone] Tab Teague MD 08/09/2024 1:19 PM OIL SPREADER OPERATOR - 08/09/2024 11:59 PM OIL SPREADER OPERATOR Hospital Encounter [address] [address] Primary hypertension Discharge Disposition: Discharge to home or self care 08/09/2024 1:15 PM OIL SPREADER OPERATOR Lab [facility] Outpatient Lab at [address] [phone] Primary hypertension (Primary Dx) 07/19/2024 Telephone [facility] Cardiology [address] [place] [address] [address] [place] [phone] Tab Teague MD Lab Results; Med Management 07/18/2024 2:15 PM OIL SPREADER OPERATOR Lab [facility] Outpatient Lab at [address] [phone] Mixed hyperlipidemia (Primary Dx) 07/18/2024 2:10 PM OIL SPREADER OPERATOR - 07/18/2024 11:59 PM OIL SPREADER OPERATOR Hospital Encounter [address] [address] Primary hypertension Discharge Disposition: Discharge to home or self care 07/05/2024 11:00 AM OIL SPREADER OPERATOR Office Visit [facility] Cardiology at [address] [place] [phone] Tab Teague MD Paroxysmal atrial fibrillation (HCC) (Primary Dx); CVA, old, aphasia; SDH (subdural hematoma) (HCC); Primary hypertension; Paroxysmal atrial flutter (HCC); Presence of left atrial appendage closure device; Mixed hyperlipidemia from Last 3 Months Immunizations Immunization Administration Dates Next Due Influenza, Unspecified 04/14/2023 Surgical History Surgery Date Site/Laterality Comments GALLBLADDER SURGERY Gallbladder Surgery - (Added by TW Conv) CHOLECYSTECTOMY before 2009 G TUBE PLACEMENT Medical History Medical History Date Comments Atrial fibrillation (HCC) Hypertension Hyperlipidemia Syncope Stroke (HCC) Arthritis Cataract Heart disease Sleep apnea Thyroid disease Family History Medical History Relation Name Comments No Known Problems Father Hip fracture Maternal Grandmother Memory loss Mother Sonia Relation Name Status Comments Father Maternal Grandmother Mother Sonia Social History Tobacco Use Types Packs/Day Years [...] on file Legal Sex Female 10:21 PM OIL SPREADER OPERATOR Gender Identity Female 02/05/2022 7:21 AM CDT Sexual Orientation Straight 02/05/2022 7: 21 AM CDT Obstetrics History Last Filed Vital Signs Vital Sign Reading Time Taken Comments Blood Pressure 152/78 07/05/2024 10:46 AM OIL SPREADER OPERATOR Pulse 54 07/05/2024 10:46 AM OIL SPREADER OPERATOR Temperature 36.7 C (98 F) 02/24/2024 11:40 AM CDT Respiratory Rate 13 10/14/2023 9:48 AM CDT Oxygen Saturation 98% 07/05/2024 10:46 AM OIL SPREADER OPERATOR Inhaled Oxygen Concentration - - Weight 68 kg (150 lb) 07/05/2024 10:46 AM OIL SPREADER OPERATOR Height 167.6 cm (5' 6 ) 07/05/2024 10:46 AM OIL SPREADER OPERATOR Body Mass Index 24.21 07/05/2024 10:46 AM OIL SPREADER OPERATOR Plan of Treatment Health Maintenance Due Date Last Done Comments Depression Screening 1945 Hepatitis C Screening 1945 Hepatitis B Screening 1963 Well Visit 65+ 2011 Osteoporosis Screening-Bone Density Scan 05/25/2020 05/25/2018, 12/30/2017 Covid-19 Vaccine (4 - 2024-2 5 season) 2024 04/04/2021, 08/08/2020, 07/11/2020 Influenza Vaccine (#1) 2024 , 02/23/2019, 02/28/2018, Additional history exists Fall Risk Assessment 10/13/2024 10/14/2023 DTaP/Tdap/Td Vaccine (3 - Td or Tdap) 12/14/2026 12/14/2016, 03/18/2010 Colon Cancer Screening-CT Colonography Discontinued 12/08/2012 Colon Cancer Screening-Colonoscopy Discontinued 12/08/2012 Colon Cancer Screening-DNA Stool Discontinued 12/09/19 Colon Cancer Screening-FIT Discontinued 12/08/2012 Colon Cancer Screening-FOBT Discontinued 12/08/2012 Colon Cancer Screening-Sigmoidoscopy Discontinued 12/08/2012 Colorectal Cancer Screening Discontinued Pneumococcal vaccine 65+ Completed 018, 12/22/2016, 06/02/2016 Zoster Vaccine Completed 02/27/2019, 12/13, 09/27/2018, Additional history exists Breast Cancer Screening-Mammogram Discontinued 05/02/2019, 04/27/2018, 04/27/2018, Additional history exists Medical Devices Implanted Type Area Charging Plug Placer Device Identifier Shelf Expiration Date Model / Serial / Lot Walker Scientific Fredi Watchman Flx Procedure Device Wmflxperproc - S0 - [id number] Implanted:Qty: 1 on 09/07/2023 by Donn Rosas MD at [facility] Left Atrial Appendage Occluder Left: Atrial Appendage Walker Scientific Fredi 04/27/2026 [id number] / 0 / [id number] [employer] Device Clsr Perclose Prostyle Sut-Mediatd Closure-Repair Sys 12639-60 - S0 - [id number] Implanted:Qty: 1 on 09/07/2023 by Donn Rosas MD at [facility] [employer] 06/13/2025 [id number] / 0 / [id number] [employer] Device Clsr Perclose Prostyle Sut-Mediatd Closure-Repair Sys 46855-25 - S0 - [id number] Implanted:Qty: 1 on 09/07/2023 by Donn Rosas MD at [facility] [employer] 06/13/2025 [id number] / 0 / [id number] Procedures Procedure Name Priority Date/Time Associated Diagnosis Comments EGFR Routine 08/09/2024 1:19 PM OIL SPREADER OPERATOR Primary hypertension COMPREHENSIVE METABOLIC PANEL Routine 08/09/2024 1:19 PM OIL SPREADER OPERATOR Primary hypertension EGFR Routine 07/18/2024 3:49 PM OIL SPREADER OPERATOR Primary hypertension COMPREHENSIVE METABOLIC PANEL Routine 07/18/2024 3:49 PM OIL SPREADER OPERATOR Primary hypertension SCREENING MAMMOGRAM BILATERAL W LAZ Schedule Routine, Read Routine (OP Routine) 05/02/2019 9:35 AM OIL SPREADER OPERATOR Encounter for screening mammogram for malignant neoplasm of breast DEXA AXIAL SKELETON BONE DENSITY 1 OR MORE SITES Schedule Routine, Read Routine (OP Routine) 05/25/2018 8:11 AM OIL SPREADER OPERATOR Osteoporosis without current pathological fracture, unspecified osteoporosis type COLONOSCOPY REPORT 12/08/2012 from Last 3 Months or Most Recently Relevant to Health Maintenance Results * eGFR (08/09/2024 1:19 PM OIL SPREADER OPERATOR) eGFR 89 >=60 mL/min/1. 73 m2 Comment: Interpretive Data Reference Interval Normal >/= 90 mL/min/1.73m2 Mildly decreased* 60 - 89 mL/min/1.73m2 Mildly to moderately decreased 45 - 59 mL/min/1.73m2 Moderately to severely decreased 30 - 44 mL/min/1.73m2 Severely decreased 15 - 29 mL/min/1.73m2 Kidney Failure < 15 mL/min/1.73m2 *Relative to young adult level Estimated glomerular filtration rate is determined by the 2020 CKD-EPI equation recommended by the National Kidney Foundation (A Unifying Approach to GFR Estimation: Recommendations of the NKF-ASK Task Force on Reassessing the Inclusion of Race in Diagnosing Kidney Disease, JASN 2020). The CKD-EPI equation should not be used for patients with unstable renal function and has not been validated in children and those over 70. Current interpretive data was last reviewed 2021. Blood 08/09/2024 1:19 PM OIL SPREADER OPERATOR 08/09/2024 8:27 PM OIL SPREADER OPERATOR [facility] Betsey Teague MD LAB BLOOD [place] [address] Department [place] [address] * (ABNORMAL) Comprehensive metabolic panel (08/09/2024 1:19 PM OIL SPREADER OPERATOR) Sodium 131(L) 135 - 145 mmol/L Potassium, pl 4.4 3.3 - 4.9 mmol/L [facility] Chloride 94(L) 97 - 110 mmol/L [facility] CO2 23 22 - 32 mmol/L [facility] Anion gap 14 2 - 15 mmol/L [facility] BUN 22 6 - 25 mg/dL [facility] Creatinine 0.69 0.60 - 1.10 mg/dL [facility] Glucose 102 70 - 199 mg/dL [facility] Comment: Interpretive Data Fasting glucose >/= 126 mg/dl is diagnostic for diabetes. Fasting is defined as no caloric intake for at least 8 hours. Fasting glucose between 100 mg/dl to 125 mg/dl is diagnostic of prediabetes. In a patient with classic symptoms of hyperglycemia or hyperglycemic crisis, a random glucose >/= 200 mg/dl is diagnostic for diabetes. In the absence of unequivocal hyperglycemia, results should be confirmed by repeat testing. The classification and Diagnosis of Diabetes Diabetes Care 2021; 46: S19-S40. Current interpretive data was last revised 2022. Calcium 9.4 8.5 - 10.3 mg/dL [facility] Bilirubin, total 0.5 0.1 - 1.2 mg/dL [facility] Protein, pl 6.8 6.5 - 8.5 g/dL [facility] Albumin 3.9 3.5 - 5.0 g/dL [facility] Alk phos 110 40 - 130 Units/L [facility] ALT 52(H) 7 - 45 Units/L [facility] AST 40 10 - 45 Units/L [facility] Blood 08/09/2024 1:19 PM OIL SPREADER OPERATOR 08/09/2024 8:06 PM OIL SPREADER OPERATOR Tab Teague MD LAB BLOOD ORDERABLES Fi nal Result Performing Organization Address [facility] Co de Phone Number E[place]CE [address] [address] Department of [employer] [place] [address] * eGFR (07/18/2024 3:49 PM OIL SPREADER OPERATOR) eGFR 65 >=60 mL/min/1. 73 m2 Comment: Interpretive Data Reference Interval Normal >/= 90 mL/min/1.73m2 Mildly decreased* 60 - 89 mL/min/1.73m2 Mildly to moderately decreased 45 - 59 mL/min/1.73m2 Moderately to severely decreased 30 - 44 mL/min/1.73m2 Severely decreased 15 - 29 mL/min/1.73m2 Kidney Failure < 15 mL/min/1.73m2 *Relative to young adult level Estimated glomerular filtration rate is determined by the 2020 CKD-EPI equation recommended by the National Kidney Foundation (A Unifying Approach to GFR Estimation: Recommendations of the NKF-ASK Task Force on Reassessing the Inclusion of Race in Diagnosing Kidney Disease, JASN 2020). The CKD-EPI equation should not be used for patients with unstable renal function and has not been validated in children and those over 70. Current interpretive data was last reviewed 2021. Blood 07/18/2024 3:49 PM OIL SPREADER OPERATOR 07/18/2024 9:02 PM OIL SPREADER OPERATOR Tab Teague MD LAB BLOOD ORDERABLES Fi nal Result Performing Organization Address [facility]/ZIP Co de Phone Number ELOISE ARCE [address] Department [place] [employer] [place] [address] * (ABNORMAL) Comprehensive metabolic panel (07/18/2024 3:49 PM OIL SPREADER OPERATOR) Sodium 133(L) 135 - 145 mmol/L Potassium, pl 5.3(H) 3.3 - 4.9 mmol/L [facility] Chloride 96(L) 97 - 110 mmol/L [facility] CO2 28 22 - 32 mmol/L [facility] Anion gap 9 2 - 15 mmol/L [facility] BUN 27(H) 6 - 25 mg/dL [facility] Creatinine 0.91 0.60 - 1.10 mg/dL [facility] Glucose 110 70 - 199 mg/dL [facility] Comment: Interpretive Data Fasting glucose >/= 126 mg/dl is diagnostic for diabetes. Fasting is defined as no caloric intake for at least 8 hours. Fasting glucose between 100 mg/dl to 125 mg/dl is diagnostic of prediabetes. In a patient with classic symptoms of hyperglycemia or hyperglycemic crisis, a random glucose >/= 200 mg/dl is diagnostic for diabetes. In the absence of unequivocal hyperglycemia, results should be confirmed by repeat testing. The classification and Diagnosis of Diabetes Diabetes Care 2021; 46: S19-S40. Current interpretive data was last revised 2022. Calcium 9.7 8.5 - 10.3 mg/dL [facility] Bilirubin, total 0.4 0.1 - 1.2 mg/dL [facility] Protein, pl 7.0 6.5 - 8.5 g/dL [facility] Albumin 4.0 3.5 - 5.0 g/dL [facility] Alk phos 203(H) 40 - 130 Units/L [facility] ALT 92(H) 7 - 45 Units/L [facility] AST 39 10 - 45 Units/L [facility] Blood 07/18/2024 3:49 PM OIL SPREADER OPERATOR 07/18/2024 7:54 PM OIL SPREADER OPERATOR [facility] Betsey Teague MD LAB BLOOD ORDERABLES nal Result [place] [address] Department [place] [address] * Screening Mammogram Bilateral W Laz (05/02/2019 9:35 AM OIL SPREADER OPERATOR) Anatomical Region Laterality Modality Breast Bilateral Mammography Narrative 05/03/2019 8:58 AM OIL SPREADER OPERATOR Screening Mammogram Bilateral W Laz: 05/02/19 Clinical: Encounter for screening mammogram for malignant neoplasm of breast. Prior Study Comparisons: Comparison was made to the prior available relevant studies at the time of interpretation. Findings: Bilateral No significant masses, malignant type calcifications, skin thickening, nipple retraction, or significant lymphadenopathy is noted in either breast. The CAD review showed no significant findings. The breasts are heterogeneously dense, which may obscure small masses. The patient will be notified of results by letter. Impression: BI-RADS ATLAS category (overall): 2 Benign There is no mammographic evidence of malignancy. Routine Screening Mammogram in 1 Yr is recommended for bilateral Overall Assessment: 2 - Benign us Self Screening Mammogram IMG MAMMO PROCEDURES Fi nal Result * Dexa Axial Skeleton Bone Density 1 or 2 Site (05/25/2018 8:11 AM OIL SPREADER OPERATOR) Anatomical Region Laterality Modality Body N/A Radiographic Amada ging Narrative 05/25/2018 8:28 AM OIL SPREADER OPERATOR Patient Name: Shelly Mims Date of : 1945 Date of scan: 05/25/2018 Bone mineral density was performed on a HoloQualySense Discovery Densitometer. Machine Cross-calibration and Precision studies have been performed with a least significant change of 0.024 g/cm at the spine, 0.020 g/cm at the total proximal femur, and 0.014g/cm at the forearm. HISTORY: This is a 72 y.o. postmenopausal female with a history of low bone mass. Currently on treatment with calcium and vitamin D. Previously treated with Reclast. History of tobacco use: History Smoking Status Never Smoker INDICATIONS: Menopause status, history of prior wrist fracture and history of low bone mass. FINDINGS: BONE MINERAL DENSITY OF THE LUMBAR SPINE Bone Mineral Density (BMD) of the lumbar spine was measured from L1-L4 and the average density was calculated to be 0.712 gm/cm. This corresponds to a T-score standard deviations from the mean of young adults of -3.0. There is no previous study available for comparison. BONE MINERAL DENSITY OF THE PROXIMAL FEMUR Bone Mineral Density (BMD) of the left hip total was found to be 0.667 gm/cm2. This corresponds to a T-score standard deviations from the mean of young adults of -2.3. Femoral neck is 0.602 gm/cm2 with a T-score of -2.2. There is no previous study available for comparison. SUMMARY: Bone mineral density shows evidence of osteoporosis and marked increase risk of fracture. ADDITIONAL COMMENTS: If the patient has a history of a fragility fracture, a fracture that occurred with trauma equivalent to a fall from a standing position or less, then the diagnosis is osteoporosis. The risk of osteoporotic fracture increases approximately 2-fold for each 1.0 SD decrease in T-score. However, low bone density is not the only risk factor for fracture. Other factors include patient s age, previous osteoporotic fracture or prior fracture as an adult, loss of height of greater than 2 inches, corticosteroid use, risk of falling, risk of injury, and family history of osteoporosis. Not everyone with low bone mineral density has osteoporosis. Osteomalacia and other metabolic bone disorders should also be considered where indicated. Patients who have osteoporosis should be evaluated for specific diseases and conditions (secondary causes) that may cause or contribute to bone loss. Consider repeating this study in 1-2 years to assess the patient s response to treatment, if applicable. It is recommended that any follow up exam be performed on the same machine if possible for better accuracy. DEFINITIONS: Osteoporosis: BMD at or below -2.5 T-score Osteopenia (low bone mass): BMD between -1.0 and-2.5 T-score. The Bone Health Program adopts the following WHO definitions: Osteoporosis: BMD below -2.5 S.D. as compared to the BMD of young normal adults. Osteopenia or Low Bone Mass: BMD between -1.0 and -2.5 S.D. below the BMD of young normal adults. Normal Bone Density: BMD equal to or greater than -1.0 S.D. as compared to the BMD of young normal adults. References: 1) Jeremy, Annals of Internal Medicine 114(11): 919-923 (1990) 2) Virk, Lancet 341 : 72-75 (1992) 3) Black, Journal Bone and Mineral Research 7(6): 633-8 (1991) 4) Reinier, Journal Bone and Mineral Research 8(10):1227-33 (1992) The history and data sections of the bone mineral density scan were prepared by Kaya Harper (R)([facility]) who is accredited by the International Society of Clinical Densitometry. The overall patient assessment and scan interpretation were performed by Alina Avina M.D. who is certified by the International Society of Clinical Densitometry. [id number] Alina Avina MD IMG DXA PROCEDURES Final Re sult * COLONOSCOPY REPORT (12/08/2012) Anatomical Region Laterality Modality Other Narrative 12/08/2012 Ordered by an unspecified provider. Historical Provider GI PROCEDURE ORDERABLES F inal Result from Last 3 Months or Most Recently Relevant to Health Maintenance Insurance MEDICARE [facility] BLUE CROSS MEDICARE SUPPLEMENT MEDICARE MEDICARE [facility] MEDICARE SUPPLEMENT Advance Directives For more information, please contact: [phone] * Full Code (Latest Code Status on File) Date Activated Date Inactivated Comments 09/07/2023 3:49 PM 09/08/2023 6:51 PM Care Teams Case Management Rn Relationship Specialty Start Date End Date Alejandro Melgar MD [address] [place] [address] PCP - General Internal Medicine 09/23/22 Warner Guy MD [address] [place] [address] Consulting Physician Cardiology 06/22/23
--- OUTSIDE RECORDS SUMMARY | 2024-08-30 13:43 | XMS_ITS | Referral Summary ---
Author Organization [facility] Address [address] [place] [address] Care Team Providers Care Milieu Therapist Name Role Phone Alejandro Melgar MD Primary Care Provider [phone] Warner Guy MD Unavailable [phone] Encounters Date Type Department Care Team Description 08/10/2024 Results Follow-Up [facility] [address] [facility] [address] [place] [phone] Tab Teague MD 08/09/2024 1:19 PM PROFESSOR OF RELIGION - 08/09/2024 11:59 PM PROFESSOR OF RELIGION Hospital Encounter [address] [id number] Primary hypertension Discharge Disposition: Discharge to home or self care 08/09/2024 1:15 PM PROFESSOR OF RELIGION Lab [facility] Outpatient Lab at [address] [phone] Primary hypertension (Primary Dx) 07/19/2024 Telephone [facility] [address] [facility] [address] [place] [phone] Tab Teague MD Lab Results; Med Management 07/18/2024 2:10 PM PROFESSOR OF RELIGION - 07/18/2024 11:59 PM PROFESSOR OF RELIGION Hospital Encounter [facility] [address] [place] [address] Primary hypertension Discharge Disposition: Discharge to home or self care 07/18/2024 2:15 PM PROFESSOR OF RELIGION Lab [facility] Outpatient Lab at [address] [id number] Mixed hyperlipidemia (Primary Dx) 07/05/2024 11:00 AM PROFESSOR OF RELIGION Office Visit [facility] Cardiology at [address] [place] [address] Tab Teague MD Paroxysmal atrial fibrillation (HCC) (Primary Dx); CVA, old, aphasia; SDH (subdural hematoma) (HCC); Primary hypertension; Paroxysmal atrial flutter (HCC); Presence of left atrial appendage closure device; Mixed hyperlipidemia from Last 3 Months Allergies Active Allergy Reactions Criticality Noted Date Comments Candex (Dextrates) Unknown 07/02/1998 allergy_desc: CARBAPENEM Cephalosporins Unknown 07/02/1998 allergy_desc: CEPHALOSPORINS Nystatin Other (See comments),Unknown Medium 07/02/1998 allergy_desc: CARBAPENEM Penicillamine Unknown 07/02/1998 allergy_desc: PENICILLAMINE Penicillins Rash Medium 08/26/2007 Medications qcinawwe-ykh-YE -lycopen-lutein 0.4 mg-300 mcg- 250 mcg tabletIndicatio [...] fibrillation 03/11/2022 Alzheimer's disease 10/17/2021 Age-related osteoporosis wit hout current pathological fracture 06/27/2018 Overview (10/03/2019): Zoledronic acid 08/17/2018. Calcium, vitamin-D daily Hx: Zoledronic acid 3 prior doses last 2012 Hx: Fracture clavicle, wrist Resolved Problems Problem Noted Date Diagnosed Date Resolved Date Chronic anticoagulation 03/09/202306/15 Immunizations Immunization Administration Dates Next Due Influenza, Unspecified 04/14/2023 Social History Tobacco Use Types Packs/Day Years [...] on file Legal Sex Female 10:21 PM PROFESSOR OF RELIGION Gender Identity Female 02/05/2022 7:21 AM CDT Sexual Orientation Straight 02/05/2022 7: 21 AM CDT Last Filed Vital Signs Vital Sign Reading Time Taken Comments Blood Pressure 152/78 07/05/2024 10:46 AM PROFESSOR OF RELIGION Pulse 54 07/05/2024 10:46 AM PROFESSOR OF RELIGION Temperature 36.7 C (98 F) 02/24/2024 11:40 AM CDT Respiratory Rate 13 10/14/2023 9:48 AM CDT Oxygen Saturation 98% 07/05/2024 10:46 AM PROFESSOR OF RELIGION Inhaled Oxygen Concentration - - Weight 68 kg (150 lb) 07/05/2024 10:46 AM PROFESSOR OF RELIGION Height 167.6 cm (5' 6 ) 07/05/2024 10:46 AM PROFESSOR OF RELIGION Body Mass Index 24.21 07/05/2024 10:46 AM PROFESSOR OF RELIGION Plan of Treatment Not on file Medical Devices Implanted Type Area Cooker Chip Device Identifier Shelf Expiration Date Model / Serial / Lot [employer] Fredi Watchman Flx Procedure Device Wmflxperproc - S0 - [id number] Implanted:Qty: 1 on 09/07/2023 by Donn Rosas MD at [facility] Left Atrial Appendage Occluder Left: Atrial Appendage [employer] Fredi 04/27/2026 [id number] / 0 / [id number] [employer] Device Clsr Perclose Prostyle Sut-Mediatd Closure-Repair Sys 98362-75 - S0 - [id number] Implanted:Qty: 1 on 09/07/2023 by Donn Rosas MD at [facility] [employer] 06/13/2025 [id number] / 0 / [id number] [employer] Device Clsr Perclose Prostyle Sut-Mediatd Closure-Repair Sys 41716-57 - S0 - [id number] Implanted:Qty: 1 on 09/07/2023 by Donn Rosas MD at [facility] [employer] 06/13/2025 [id number] / 0 / [id number] Procedures Procedure Name Priority Date/Time Associated Diagnosis Comments EGFR Routine 08/09/2024 1:19 PM PROFESSOR OF RELIGION Primary hypertension COMPREHENSIVE METABOLIC PANEL Routine 08/09/2024 1:19 PM PROFESSOR OF RELIGION Primary hypertension EGFR Routine 07/18/2024 3:49 PM PROFESSOR OF RELIGION Primary hypertension COMPREHENSIVE METABOLIC PANEL Routine 07/18/2024 3:49 PM PROFESSOR OF RELIGION Primary hypertension SCREENING MAMMOGRAM BILATERAL W LAZ Schedule Routine, Read Routine (OP Routine) 05/02/2019 9:35 AM PROFESSOR OF RELIGION Encounter for screening mammogram for malignant neoplasm of breast DEXA AXIAL SKELETON BONE DENSITY 1 OR MORE SITES Schedule Routine, Read Routine (OP Routine) 05/25/2018 8:11 AM PROFESSOR OF RELIGION Osteoporosis without current pathological fracture, unspecified osteoporosis type COLONOSCOPY REPORT 12/08/2012 from Last 3 Months or Most Recently Relevant to Health Maintenance Results * eGFR (08/09/2024 1:19 PM PROFESSOR OF RELIGION) eGFR 89 >=60 mL/min/1. 73 m2 Comment: [...] last reviewed 2021. Blood 08/09/2024 1:19 PM PROFESSOR OF RELIGION 08/09/2024 8:27 PM PROFESSOR OF RELIGION [facility] Betsey Teague MD LAB BLOOD ORDERABLES Fi nal Result [facility] [address] Department [place] [address] * (ABNORMAL) Comprehensive metabolic panel (08/09/2024 1:19 PM PROFESSOR OF RELIGION) Sodium 131(L) 135 - 145 mmol/L Potassium, [...] classification and Diagnosis of Diabetes Diabetes Care 202; 46: S19-S40. Current interpretive data was last [...] Units/L [facility] Blood 08/09/2024 1:19 PM PROFESSOR OF RELIGION 08/09/2024 8:06 PM PROFESSOR OF RELIGION Tab Teague MD LAB BLOOD ORDERABLES Fi nal Result Performing Organization Address [facility]/ZIP Co de Phone Number ELOISE ARCE [address] [email or web address] [address] * eGFR (07/18/2024 3:49 PM PROFESSOR OF RELIGION) eGFR 65 >=60 mL/min/1. 73 m2 Comment: [...] last reviewed 2021. Blood 07/18/2024 3:49 PM PROFESSOR OF RELIGION 07/18/2024 9:02 PM PROFESSOR OF RELIGION Tab Teague MD LAB BLOOD ORDERABLES Fi nal Result Performing Organization Address [facility]/ZIP Co de Phone Number ELOISE ARCE [address] [employer] [place], [place] [id number] * (ABNORMAL) Comprehensive metabolic panel (07/18/2024 3:49 PM PROFESSOR OF RELIGION) Sodium 133(L) 135 - 145 mmol/L Potassium, pl 5.3(H) 3.3 - 4.9 mmol/L CERNER CH Chloride 96(L) 97 - 110 mmol/L [facility] CO2 28 22 - 32 mmol/L CERNER [...] Units/L CERNER CH Blood 07/18/2024 3:49 PM PROFESSOR OF RELIGION 07/18/2024 7:54 PM PROFESSOR OF RELIGION [facility] Betsey Teague MD LAB BLOOD ORDERABLES Fi nal Result ELOISE ARCE [address] Department [place] [address] * Screening Mammogram Bilateral W Laz (05/02/2019 9:35 AM PROFESSOR OF RELIGION) Anatomical Region Laterality Modality Breast Bilateral Mammography Narrative 05/03/2019 8:58 AM PROFESSOR OF RELIGION Screening Mammogram Bilateral W Laz: 05/02/19 Clinical: [...] 1 or 2 Site (05/25/2018 8:11 AM PROFESSOR OF RELIGION) Anatomical Region Laterality Modality Body N/A Radiographic Amada ging Narrative 05/25/2018 8:28 AM PROFESSOR OF RELIGION Patient Name: Shelly Mims Date of : 1945 Date of scan: 05/25/2018 Bone mineral density was performed on a [employer] Discovery Densitometer. Machine Cross-calibration and Precision studies [...] of Internal Medicine 114(11): 919-923 (1990) 2) Moose, Lancet 341 : 72-75 (1992) 3) Tan, Journal Bone and Mineral Research 7(6): 633-8 (1991) 4) Reinier, Journal Bone and Mineral Research 8(10):1227-33 (1992) The history and data sections of the bone mineral density scan were prepared by Kaya Harper (R)(CBDT) who is accredited by the International Society of Clinical Densitometry. The overall patient assessment and scan interpretation were performed by Alina Avina M.D. who is certified by the International Society of Clinical Densitometry. [id number] Alina Avina MD IMG DXA PROCEDURES Final Re sult * COLONOSCOPY REPORT (12/08/2012) Anatomical Region Laterality Modality Other Narrative 12/08/2012 Ordered by an unspecified provider. Historical Provider GI PROCEDURE ORDERABLES F inal Result from Last 3 Months or Most Recently Relevant to Health Maintenance Insurance MEDICARE [facility] MEDICARE SUPPLEMENT MEDICARE MEDICARE [facility] MEDICARE SUPPLEMENT Advance Directives For more information, please contact: [phone] * Full Code (Latest Code Status on File) Date Activated Date Inactivated Comments 09/07/2023 3:49 PM 09/08/2023 6:51 PM Care Teams Milieu Therapist Relationship Specialty Start Date End Date Alejandro Melgar MD [address] [place] [address] PCP - General Internal Medicine 09/23/22 Warner Guy MD [address] [place] [address] Consulting Physician Cardiology 06/22/23
== END 2024-08-30 12:11 | disposition home or self-care (01) ==
LOC: ANHLAB 12:14
PROVIDERS: PCP Internal Medicine; Visit Provider Internal Medicine
DX: R73.03 Prediabetes (principal); I10 Essential (primary) hypertension; Z79.899 Other long term (current) drug therapy; Z13.29 Encounter for screening for other suspected endocrine disorder; Z13.220 Encounter for screening for lipoid disorders
CPT/HCPCS: 36415; 80053; 80061; 83036; 84439; 84443; 85025

== ENCOUNTER 2024-09-10 11:28 | Emergency (ER) | payer MEDICARE, SELFPAY ==
--- NOTE | ~2024-09-10 | CT_ITS ---
CLINICAL INDICATION: Bloody mucousy stool COMPARISON: 12/30/2022. TECHNIQUE: Multiple contiguous axial images of the abdomen and pelvis were performed following the ad ministration of with 100 mL Omnipaque-350 intravenous contrast The dose-length product (DLP) was 308.78 mGy-cm. Automated exposure control and iterative reconstruction technique were employed. FINDINGS/OBSERVATIONS: Visualized lower thorax: Small left-sided pleural effusion with adjacent compressive atelectasis. The heart is of normal size, without pericardial effusion. Small hiatal hernia is present. Liver: The liver demonstrates homogeneous enhancement and is not enlarged. Gallbladder and biliary system: The gallbladder is surgically absent. Pancreas: The pancreas enhances homogeneously without significant ductal dilatation. Spleen: The spleen enhances homogeneously and is not enlarged. Kidneys: The bilateral kidneys enhance symmetrically without hydronephrosis or renal calculi. Adrenal glands: Unremarkable. Gastrointestinal tract: Percutaneous gastrostomy in position extending antegrade. Within the distal sigmoid colon and extending to the rectum the bowel is significantly distended demo nstrating edematous mural thickening and a markedly attenuated lumen. Infiltration of the presacral fat is also noted. Appendix: The appendix is not definitively visualized. However, no pericecal inflammatory change is identified suggest the presence of acute appendicitis. Vasculature: Densely calcified atherosclerotic disease. Lymph nodes: No pathologically enlarged or morphologically suspicious lymph nodes within the retroperitoneum or at the root of the mesentery. Pelvic structures: The bladder is minimally distended, and otherwise unremarkable. The uterus is anteverted and anteflexed, and otherwise unremarkable. Body wall and musculoskeletal: Redemonstration of compression of the vertebral body of L1, unchanged from prior. Interval development of compression of the superior endplate of the L4 vertebral body, not present on prior examination but demonstrates chronic morphology. Otherwise age-appropriate degenerative disease. IMPRESSION: Short segment colitis within the rectosigmoid colon for which follow-up to resolution is recommended, as a malignancy may have a similar appearance. No additional acute pathology is appreciated, as detailed above. Reviewed, dictated and finalized at location A. IMPRESSION: Short segment colitis within the rectosigmoid colon for which follow-up to reso lution is recommended, as a malignancy may have a similar appearance. No additional acute pathology is appreciated, as detailed above.
[2024-09-10 11:21] VITALS: BP 164/60; PULSE 57; RESP 14; TEMP 36.6; O2SAT 99
[2024-09-10 11:53] LABS: Basophils Absolute Auto 0.1 K/mm3 (0.0-0.1); Basophils Percent Auto 0.8 % (0.2-1.2); Eosinophils Absolute Auto 0.1 K/mm3 (0-0.3); Eosinophils Percent Auto 1.6 % (0-4.4); Hematocrit 37.5 % (37.0-47.0); Hemoglobin 12.2 g/dL (12.0-15.0); Immature Granulocyte Absolute 0.03 K/mm3 (0.00-0.031); Immature Granulocyte Percent A 0.4 % (0-0.5); Lymphocytes Percent Auto 13.7 % (18.3-44.2); Mean Corpuscular HGB Conc 32.5 g/dl (32-36); Mean Corpuscular Hemoglobin 30.3 pg (26-34); Mean Corpuscular Volume 93.1 fl (80-100); Mean Platelet Volume 11.7 fl (7.4-10.4); Monocytes Absolute Auto 0.8 K/mm3 (0.1-0.6); Monocytes Percent Auto 10.5 % (2.6-8.5); Neutrophils Absolute Auto 5.3 K/mm3 (1.3-6.7); Platelet Count Result 221 k/mm3 (150-375); Red Blood Count 4.03 M/mm3 (4.2-5.4); Red Cell Distribution Width 13.5 % (11.5-14.5); White Blood Count 7.3 K/mm3 (4.5-10.0)
--- OUTSIDE RECORDS SUMMARY | 2024-09-10 11:54 | XMS_ITS | Clinical Summary ---
Author Organization [facility] Address [address] [facility] [place] [address] Care Team Providers Care Distribution Field Engineer Name Role Phone Unavailable Primary Care Provider Unavailabl e Medications rivastigmine tartrate (EXELON) 3 mg capsule Give 1 capsule via feeding tube twice daily 180 Capsule 2 08/02/2024 10:49 AM SENIOR SALES EXECUTIVE 04/23/2024 Active Encounters Date Type Department Care [...] on file Legal Sex Female 11:37 AM SENIOR SALES EXECUTIVE Gender Identity Not on file Sexual Orientation [...] Payer ID:Not on file Group ID:[id number] Type:RX [employer] Address: [address]
--- OUTSIDE RECORDS SUMMARY | 2024-09-10 11:54 | XMS_ITS | Encounter Summary ---
Author Organization [facility] Address [address] [place] [address] Phone Care Team Providers Care Employee'S Representative Name Role Phone Jean Paul Newton MD Primary Care Provider [phone] Alejandro Melgar MD Primary Care Provider [phone] Warner Guy MD Unavailable [phone] Encounter Details Date Type Department Care Team (Latest Contact Info) Description 01/07/2022 Orders Only [facility] Scanning, Provider Social History Tobacco Use Types Packs/Day Years Used Date Smoking Tobacco: Never Smokeless Tobacco: Never Comments Unknown Sex and Gender Information Value Date Recorded Sex Assigned at Not on file Legal Sex Female 10:21 PM CO FOUNDER AND PRESIDENT Gender Identity Female 02/05/2022 7:21 AM CDT [...] on filedocumented in this encounter Care Teams Employee'S Representative Relationship Specialty Start Date End Date Jean Paul Newton MD [address] [place] [address] PCP - General 04/20/17 09/22/22 Alejandro Melgar MD [address] [place] [address] PCP - General Internal Medicine 09/23/22 Warner Guy MD [address] [place] [address] Consulting Physician Cardiology 06/22/23 documented as of this encounter
--- OUTSIDE RECORDS SUMMARY | 2024-09-10 11:54 | XMS_ITS ---
Author Name Brayan Shea Neena Address [address] [place] [address] Phone [phone] Organization [facility] Address [address] [place] [address] Phone [phone] Care Team Providers Care Tie Worker Name Role Phone Brayan Shea Unavailable Alejandro Melgar Unavailable [phone] Functional Status No Results Mental Status No Results Allergies and Intolerances Name Onset Date Reaction Severity No Known Allergies (Allergy) WedDec 03 14:38:00 EDT 2022 Encounters Program Name Primary Diagnosis Admission Date/Time Dis charge Date/Time [facility] WedFeb 21 20:00:00 EDT 2022 null WedSep 25 20:00 :00 EDT 2021 Medications Medication Directions Start Date End Date acetaminophen 325 mg tablet 2 tabs TABLE T G-tube 1 Time Daily Indication: Pain WedFeb 02 13:00:00 EDT 2022Feb 16 01:00:00 EDT 2022 MetamuciL 3.4 gram/5.4 gram oral powder 1 packet POWDER (GRAM) Oral PRN 1 Time Daily Indication: Diarrhea WedJan 20 16:40:00 EDT 2022Jan 20 16:42:00 EDT 2022 MetamuciL 3.4 gram/5.4 gram oral powder 1 packet POWDER (GRAM) G-tube PRN 1 Time Daily Indication: Diarrhea WedJan 20 16:43:00 EDT 2022Feb 16 01:00:00 EDT 2022 acetaminophen 325 mg tablet 2 tabs TABLE T Oral 1 Time Daily Indication: Pain WedJan 13 22:59:00 ED2022Feb 02 13:08:00 EDT 2022 levothyroxine 50 mcg tablet 1 TAB TABLET G-tube 1 Time Daily Indication: HYPOTHYROIDISM WedJan 09 06:13:00 EDT 2022Feb 16 01:00:00 EDT 2022 MetamuciL 3.4 gram/5.4 gram oral powder 3.5 grams POWDER (GRAM) G-tube 1 Time Daily Indication: Supplement WedJan 05 15:00:00 EDT 2022Jan 20 16:41:00 EDT 2022 sulfamethoxazole 800 mg-trimethoprim 160 mg tablet 1 TAB TABLET G-tube Every 12 Hours for 3 Days Indication: INFECTION WedJan 04 20:00:00 EDT 2022 Rayna Jan 07 19:59:00 EDT 2022 amoxicillin 250 mg-potassium clavulanate 62.5 mg/5 mL oral suspension 10 ML SUSPENSION, RECONSTITUTED, ORAL (ML) G-tube Every 8 Hours for 5 Days Indication: INFECTION WedJan 04 20:00:00 EDT 2022Jan 09 19:59:00 EDT 2022 amLODIPine 5 mg tablet 1 TAB TABLET G-tu be 1 Time Daily Indication: HTN WedJan 04 20:00:00 2022Feb 16 01:00:00 EDT 2022 melatonin 5 mg tablet 1 TAB TABLET G-tub e PRN Hour Of Sleep Indication: Sleep WedJan 04 20:00:00 2022Feb 16 01:00:00 EDT 2022 sennosides 8.6 mg-docusate sodium 50 mg tablet 1 TAB TABLET G-tube PRN Hour Of Sleep Indication: CONSTIPATION WedJan 04 20:00:00 2022Feb 16 01:00:00 ED2022 acetaminophen 325 mg tablet 2 TABS TABLE T G-tube PRN Every 6 Hours Indication: MILD PAIN (1-3) * DO NOT EXCEED 3GM/DAY APAP FROM ALL SOURCES*2 [id number] MG WedJan 04 20:00:00 EDT 2022Feb 16 01:00:00 EDT 2022 Eliquis 5 mg tablet 1 TAB TABLET G-tube 2 Times Daily Indication: BLOOD THINNER WedJan 04 20:00:00 EDT 2022Feb 16 01:00:00 EDT 2022 rivastigmine 3 mg capsule 1 TAB CAPSULE G-tube 2 Times Daily Indication: Dementia WedJan 04 20:00:00 EDT 2022Feb 16 01:00:00 EDT 2022 Eucerin topical cream 1 APPLICATION CREA M (GRAM) Topical 1 Time Daily Indication: SKIN CARE APPLY TO ARMS AND LEGS WedJan 04 20:00:00 EDT 2022Feb 16 01:00:00 EDT 2022 sodium bicarbonate 650 mg tablet 1 TAB TABLET G-tube 1 Time Daily Indication: SUPPLEMENT WedJan 04 20:00:00 EDT 2022Feb 16 01:00:00 EDT 2022 Banatrol Plus oral powder packet 1 EACH POWDER IN PACKET (EA) G-tube 3 Times Daily Indication: SUPPLEMENT WedJan 04 20:00:00 EDT 2022Jan 05 14:54:00 EDT 2022 levothyroxine 50 mcg tablet 1 TAB TABLET G-tube 1 Time Daily Indication: HYPOTHYROIDISM WedJan 04 20:00:00 EDT 2022Jan 09 06:14:00 EDT 2022 gabapentin 100 mg capsule 1 CAP CAPSULE G-tube Hour Of Sleep Indication: NERVE PAIN WedJan 04 20:00:00 EDT 2022Feb 16 01:00:00 EDT 2022 memantine 10 mg tablet 1 TAB TABLET G-tu be 1 Time Daily Indication: DEMENTIA WedJan 04 20:00:00 EDT 2022Feb 16 01:00:00 EDT 2022 metoprolol tartrate 50 mg tablet 1 TAB TABLET G-tube Every 8 Hours Indication: HYPERTENSION WedJan 04 20:00:00 EDT 2022Feb 16 01:00:00 EDT 2022 amiodarone 200 mg tablet 1 TAB TABLET G- tube Every 12 Hours Indication: AFIB WedJan 04 20:00:00 EDT 2022 Sep 05 01:00:00 EDT 2022 melatonin 5 mg tablet 1 tablet TABLET Or al 1 Time Daily Indication: Insomnia WedDec 29 16:00:00 EDT 2022Jan 04 19:45:00 EDT 2022 ALPRAZolam 0.25 mg tablet 1 tab TABLET E nteral Tube 1 Time Daily Indication: Anxiety WedDec 28 18:19:00 EDT 2022Dec 29 16:46:00 EDT 2022 sodium bicarbonate 650 mg tablet 1 tablet TABLET G-tube 1 Time Daily Indication: Hyponatremia WedDec 25 17:00:00 EDT 2022Jan 04 19:45:00 EDT 2022 levothyroxine 50 mcg tablet 1 tablet TAB LET G-tube 1 Time Daily Indication: Hypothyroidism WedDec 25 14:00:00 EDT 2022Jan 04 19:45:00 EDT 2022 Eucerin topical cream 1 application CREA M (GRAM) Topical 1 Time Daily Indication: Dryness Apply Eucerin to Arm and legs Daily WedDec 24 12:00:00 EDT 2022Jan 04 19:45:00 EDT 2022 Banatrol Plus oral powder packet 1 packet POWDER IN PACKET (EA) G-tube 3 Times Daily Indication: Bulk up stool WedDec 23 07:00:00 EDT 2022Jan 04 19:45:00 EDT 2022 acetaminophen 325 mg tablet 2 tablets TA BLET G-tube PRN Every 6 Hours Indication: Pain WedDec 17 11:12:00 EDT 2022Jan 04 19:45:00 EDT 2022 Miralax 17 gram oral powder packet 17 grams POWDER IN PACKET (EA) G-tube Every 2 Days Indication: Constipation WedDec 17 11:23:00 EDT 2022Dec 18 17:57:00 EDT 2022 levothyroxine 25 mcg tablet 1tab TABLET G-tube 1 Time Daily Indication: thyroid WedDec 11 07:00:00 EDT 2022Dec 25 14:50:00 EDT 2022 levothyroxine 25 mcg capsule 1 cap CAPSU LE Oral 1 Time Daily Indication: hypothyroidism Per PEG WedDec 09 15:05:00 EDT 2022Dec 10 06:21:00 EDT 2022 TUBErsoL 5 tub. unit/0.1 mL intradermal injection solution 0.1 ml VIAL (ML) Intradermal 1 Time Weekly for 2 Weeks Indication: TB test 1st injection on admission, then one week after. Read between 48 and 72 hours WedDec 04 01:00:00 EDT 2022Dec 18 00:59:00 EDT 2022 TUBErsoL 5 tub. unit/0.1 mL intradermal injection solution Read Results VIAL (ML) Other 1 Time Weekly for 2 Weeks Indication: TB test Read results between 48-72 hours after 1st and 2nd (1 week apart). If positive do chest x-ray. WedDec 04 01:00:00 EDT 2022Dec 18 00:59:00 EDT 2022 amiodarone 200 mg tablet 1 tablet TABLET G-tube Every 12 Hours Indication: A-fib WedDec 03 14:00:00 EDT 2022Jan 04 19:45:00 EDT 2022 gabapentin 100 mg capsule 1 capsule CAPS ULE G-tube 1 Time Daily Indication: Neuropathy WedDec 03 14:00:00 EDT 2022Jan 04 19:45:00 EDT 2022 ipratropium bromide 0.02 % solution for inhalation 0.5mg SOLUTION, NON-ORAL Nebulization Every 6 Hours for 7 Days Indication: PNA WedDec 03 15:00:00 EDT 2022Dec 10 14:59:00 EDT 2022 levalbuteroL 1.25 mg/3 mL solution for nebulization 1 vial VIAL, NEBULIZER (ML) Nebulization Every 6 Hours for 6 Days Indication: PNA WedDec 03 15:00:00 EDT 2022Dec 09 14:59:00 EDT 2022 metoprolol tartrate 50 mg tablet 1 tablet TABLET Oral Every 8 Hours Indication: HTN WedDec 03 15:00:00 EDT 2022Dec 03 14:59:00 EDT 2022 metoprolol tartrate 50 mg tablet 1 tablet TABLET G-tube Every 8 Hours Indication: HTN WedDec 03 14:58:00 EDT 2022Jan 04 19:45:00 EDT 2022 oxyCODONE 5 mg tablet 1 tablet TABLET Or al PRN 3 Times Daily Indication: Pain WedDec 03 14:00:00 EDT 2022Dec 03 15:02:00 EDT 2022 acetaminophen 325 mg tablet 2 tablets TA BLET Oral PRN Every 6 Hours Indication: Pain WedDec 03 15:00:00 EDT 2022u Nov 22 15:01:00 EDT 2022 acetaminophen 325 mg tablet 2 tablets TA BLET G-tube PRN Every 6 Hours Indication: Pain WedDec 03 15:01:00 EDT 2022Dec 03 15:06:00 EDT 2022 oxyCODONE 5 mg tablet 1 tablet TABLET G- tube PRN 3 Times Daily Indication: Pain WedDec 03 15:01:00 EDT 2022Dec 04 12:28:00 EDT 2022 amLODIPine 5 mg tablet 1 tablet TABLET G -tube 1 Time Daily Indication: HTN WedDec 03 15:00:00 EDT 2022Jan 04 19:45:00 EDT 2022 acetaminophen 325 mg tablet 2 tablets TA BLET G-tube Every 6 Hours Indication: Pain WedDec 03 15:04:00 EDT 2022Dec 17 11:13:00 EDT 2022 melatonin 3 mg tablet 1 tablet TABLET G- tube PRN 1 Time Daily Indication: Insomnia WedDec 03 15:00:00 EDT 2022Dec 29 16:46:00 EDT 2022 Miralax 17 gram oral powder packet 17 grams POWDER IN PACKET (EA) G-tube 1 Time Daily Indication: Constipation WedDec 03 15:00:00 EDT 2022Dec 17 11:24:00 EDT 2022 sennosides 8.6 mg-docusate sodium 50 mg tablet 1 tablet TABLET G-tube PRN 1 Time Daily Indication: ConstipationAt bedtime PRN WedDec 03 15:00:00 EDT 2022Jan 04 19:45:00 EDT 2022 Eliquis 5 mg tablet 1 tablet TABLET G-tu be 2 Times Daily Indication: DVT proph WedDec 03 15:00:00 EDT 2022Jan 04 19:45:00 EDT 2022 memantine 10 mg tablet 1 tablet TABLET G -tube 1 Time Daily Indication: Dementia WedDec 03 15:00:00 EDT 2022Jan 04 19:45:00 EDT 2022 rivastigmine 3 mg capsule 1 capsule CAPS ULE G-tube 2 Times Daily Indication: Dementia WedDec 03 14:00:00 EDT 2022Jan 04 19:45:00 EDT 2022 Problems Active Concerns * Dorsalgia, unspecified* Code: * Start Date: WedSep 11 00:00:00 EDT 2022 * End Date: * Text: * Pain in leg, unspecified* Code: * Start Date: WedSep 11 00:00:00 EDT 2022 * End Date: * Text: * Other reduced mobility* Code: * Start Date: WedSep 11 00:00:00 EDT 2022 * End Date: * Text: * Muscle weakness (generalized)* Code: * Start Date: WedSep 11 00:00:00 EDT 2022 * End Date: * Text: * Unspecified dementia, unspecified severity, without behavioral disturbance, psychotic disturbance, mood disturbance, and anxiety* Code: * Start Date: WedDec 03 00:00:00 EDT 2022 * End Date: * Text: * Paroxysmal atrial fibrillation* Code: * Start Date: WedDec 03 00:00:00 EDT 2022 * End Date: * Text: * FDC (current) use of anticoagulants* Code: * Start Date: WedDec 03 00:00:00 EDT 2022 * End Date: * Text: * Obstructive sleep apnea (adult) (pediatric)* Code: * Start Date: WedDec 03 00:00:00 EDT 2022 * End Date: * Text: * History of falling* Code: * Start Date: WedDec 03 00:00:00 EDT 2022 * End Date: * Text: * Personal history of traumatic brain injury* Code: * Start Date: WedDec 03 00:00:00 EDT 2022 * End Date: * Text: * Hemiplegia and hemiparesis following cerebral infarction affecting right dominant side* Code: * Start Date: WedDec 03 00:00:00 EDT 2022 * End Date: * Text: * Aphasia following cerebral infarction* Code: * Start Date: WedDec 03 00:00:00 EDT 2022 * End Date: * Text: * Dysphagia following cerebral infarction* Code: * Start Date: WedDec 03 00:00:00 EDT 2022 * End Date: * Text: * Pneumonia, unspecified organism* Code: * Start Date: WedDec 03 00:00:00 EDT 2022 * End Date: * Text: * Hematuria, unspecified* Code: * Start Date: WedDec 03 00:00:00 EDT 2022 * End Date: * Text: * Essential (primary) hypertension* Code: * Start Date: WedDec 03 00:00:00 EDT 2022 * End Date: * Text: * Encounter for attention to gastrostomy* Code: * Start Date: WedDec 03 00:00:00 EDT 2022 * End Date: * Text: * Urinary tract infection, site not specified* Code: * Start Date: WedDec 03 00:00:00 EDT 2022 * End Date: * Text: * Fracture of unspecified part of neck of right femur, subsequent encounter for closed fracture with routine healing* Code: * Start Date: WedDec 03 00:00:00 EDT 2022 * End Date: * Text: * Stable burst fracture of first lumbar vertebra, subsequent encounter for fracture with routine healing* Code: * Start Date: WedDec 03 00:00:00 EDT 2022 * End Date: * Text: * Neuromuscular dysfunction of bladder, unspecified* Code: * Start Date: WedDec 03 00:00:00 EDT 2022 * End Date: * Text: * Retention of urine, unspecified* Code: * Start Date: WedDec 03 00:00:00 EDT 2022 * End Date: * Text: * Presence of urogenital implants* Code: * Start Date: WedDec 03 00:00:00 EDT 2022 * End Date: * Text: * Insomnia, unspecified* Code: * Start Date: WedDec 03 00:00:00 EDT 2022 * End Date: * Text: * Slow transit constipation* Code: * Start Date: WedDec 03 00:00:00 EDT 2022 * End Date: * Text: * Weakness* Code: * Start Date: WedDec 03 00:00:00 EDT 2022 * End Date: * Text: * Unsteadiness on feet* Code: * Start Date: WedDec 03 00:00:00 EDT 2022 * End Date: * Text: * Hypothyroidism, unspecified* Code: * Start Date: WedDec 03 00:00:00 EDT 2022 * End Date: * Text: * Dysphagia, oropharyngeal phase* Code: * Start Date: WedDec 03 00:00:00 EDT 2022 * End Date: * Text: * Pressure ulcer of sacral region, unstageable* Code: * Start Date: WedDec 03 00:00:00 EDT 2022 * End Date: * Text: * Pneumonitis due to inhalation of food and vomit* Code: * Start Date: WedJan 04 00:00:00 EDT 2022 * End Date: * Text: * Generalized anxiety disorder* Code: * Start Date: WedJan 04 00:00:00 EDT 2022 * End Date: * Text: * Hypo-osmolality and hyponatremia* Code: * Start Date: WedJan 04 00:00:00 EDT 2022 * End Date: * Text: * 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* Code: * Start Date: WedJan 04 00:00:00 EDT 2022 * End Date: * Text: * Other abnormalities of gait and mobility* Code: * Start Date: WedFeb 22 00:00:00 EDT 2022 * End Date: * Text: * Dysarthria following other cerebrovascular disease* Code: * Start Date: WedFeb 22 00:00:00 EDT 2022 * End Date: * Text: * Unspecified sequelae of nontraumatic subarachnoid hemorrhage* Code: * Start Date: WedFeb 22 00:00:00 EDT 2022 * End Date: * Text: * Unspecified sequelae of other nontraumatic intracranial hemorrhage* Code: * Start Date: WedFeb 22 00:00:00 EDT 2022 * End Date: * Text: * Aphasia following other cerebrovascular disease* Code: * Start Date: WedFeb 22 00:00:00 EDT 2022 * End Date: * Text: * Cerebrovascular disease, unspecified* Code: * Start Date: WedFeb 22 00:00:00 EDT 2022 * End Date: * Text: * Apraxia following cerebral infarction* Code: * Start Date: WedFeb 22 00:00:00 EDT 2022 * End Date: * Text: * Dysarthria following cerebral infarction* Code: * Start Date: WedFeb 22 00:00:00 EDT 2022 * End Date: * Text: Reason for Referral Past Medical History Resolved Concerns * Problem Unspecified abnormal findings in urine* Code: * Start Date: WedDec 03 00:00:00 EDT 2022 * End Date: WedDec 04 00:00:00 EDT 2022 * Problem Dysphagia, unspecified* Code: * Start Date: WedDec 03 00:00:00 EDT 2022 * End Date: WedDec 21 00:00:00 EDT 2022 * Problem Syncope and collapse* Code: * Start Date: WedDec 03 00:00:00 EDT 2022 * End Date: WedFeb 10 00:00:00 EDT 2022
--- OUTSIDE RECORDS SUMMARY | 2024-09-10 11:54 | XMS_ITS | Clinical Summary ---
Author Organization [facility] Address [address] [place] [address] Care Team Providers Care Flipping Machine Operator Name Role Phone Alejandro Melgar MD Primary Care Provider [phone] Warner Guy MD Unavailable [phone] Allergies Active Allergy Reactions Criticality Noted Date Comments Candex (Dextrates) Unknown 07/02/1998 allergy_desc: CARBAPENEM Cephalosporins Unknown 07/02/1998 allergy_desc: CEPHALOSPORINS Nystatin Other (See comments),Unknown Medium 07/02/1998 allergy_desc: CARBAPENEM Penicillamine Unknown 07/02/1998 allergy_desc: PENICILLAMINE Penicillins Rash Medium 08/26/2007 Medications [id number] -lycopen-lutein 0.4 mg-300 mcg- 250 mcg tabletIndicatio [...] Department Care Team Description 08/10/2024 Results Follow-Up [facility] Cardiology [address] [place] [address] [place] [phone] Tab Teague MD 08/09/2024 1:19 PM MIRROR FABRICATION SUPERVISOR - 08/09/2024 11:59 PM MIRROR FABRICATION SUPERVISOR Hospital Encounter [address] [address] Primary hypertension Discharge Disposition: Discharge to home or self care 08/09/2024 1:15 PM MIRROR FABRICATION SUPERVISOR Lab [facility] Outpatient Lab at [address] [phone] Primary hypertension (Primary Dx) 07/19/2024 Telephone [facility] Cardiology [address] [place] [address] [place] [phone] Tab Teague MD Lab Results; Med Management 07/18/2024 2:15 PM MIRROR FABRICATION SUPERVISOR Lab [facility] Outpatient Lab at [address] [phone] Mixed hyperlipidemia (Primary Dx) 07/18/2024 2:10 PM MIRROR FABRICATION SUPERVISOR - 07/18/2024 11:59 PM MIRROR FABRICATION SUPERVISOR Hospital Encounter [address] [address] Primary hypertension Discharge Disposition: Discharge to home or self care 07/05/2024 11:00 AM MIRROR FABRICATION SUPERVISOR Office Visit [facility] Cardiology at [address] [place] [phone] Tab Teague MD Paroxysmal atrial fibrillation (HCC) [...] on file Legal Sex Female 10:21 PM MIRROR FABRICATION SUPERVISOR Gender Identity Female 02/05/2022 7:21 AM CDT Sexual Orientation Straight 02/05/2022 7: 21 AM CDT Obstetrics History Last Filed Vital Signs Vital Sign Reading Time Taken Comments Blood Pressure 152/78 07/05/2024 10:46 AM MIRROR FABRICATION SUPERVISOR Pulse 54 07/05/2024 10:46 AM MIRROR FABRICATION SUPERVISOR Temperature 36.7 C (98 F) 02/24/2024 11:40 AM CDT Respiratory Rate 13 10/14/2023 9:48 AM CDT Oxygen Saturation 98% 07/05/2024 10:46 AM MIRROR FABRICATION SUPERVISOR Inhaled Oxygen Concentration - - Weight 68 kg (150 lb) 07/05/2024 10:46 AM MIRROR FABRICATION SUPERVISOR Height 167.6 cm (5' 6 ) 07/05/2024 10:46 AM MIRROR FABRICATION SUPERVISOR Body Mass Index 24.21 07/05/2024 10:46 AM MIRROR FABRICATION SUPERVISOR Plan of Treatment Health Maintenance Due Date [...] history exists Medical Devices Implanted Type Area Medical Radiation Therapist Device Identifier Shelf Expiration Date Model / Serial / Lot [employer] Fredi Watchman Flx Procedure Device Wmflxperproc - S0 - [id number] Implanted:Qty: 1 on 09/07/2023 by Donn Rosas MD at [facility] Left Atrial Appendage Occluder Left: Atrial Appendage [employer] Fredi 04/27/2026 [id number] / 0 / [id number] [employer] Device Clsr Perclose Prostyle Sut-Mediatd Closure-Repair Sys 24597-40 - S0 - [id number] Implanted:Qty: 1 on 09/07/2023 by Donn Rosas MD at [facility] [employer] 06/13/2025 [id number] / 0 / [id number] [employer] Device Clsr Perclose Prostyle Sut-Mediatd Closure-Repair Sys 19596-39 - S0 - [id number] Implanted:Qty: 1 on 09/07/2023 by Donn Rosas MD at [facility] [employer] 06/13/2025 [id number] / 0 / [id number] Procedures Procedure Name Priority Date/Time Associated Diagnosis Comments EGFR Routine 08/09/2024 1:19 PM MIRROR FABRICATION SUPERVISOR Primary hypertension COMPREHENSIVE METABOLIC PANEL Routine 08/09/2024 1:19 PM MIRROR FABRICATION SUPERVISOR Primary hypertension EGFR Routine 07/18/2024 3:49 PM MIRROR FABRICATION SUPERVISOR Primary hypertension COMPREHENSIVE METABOLIC PANEL Routine 07/18/2024 3:49 PM MIRROR FABRICATION SUPERVISOR Primary hypertension SCREENING MAMMOGRAM BILATERAL W LAZ Schedule Routine, Read Routine (OP Routine) 05/02/2019 9:35 AM MIRROR FABRICATION SUPERVISOR Encounter for screening mammogram for malignant neoplasm of breast DEXA AXIAL SKELETON BONE DENSITY 1 OR MORE SITES Schedule Routine, Read Routine (OP Routine) 05/25/2018 8:11 AM MIRROR FABRICATION SUPERVISOR Osteoporosis without current pathological fracture, unspecified osteoporosis type COLONOSCOPY REPORT 12/08/2012 from Last 3 Months or Most Recently Relevant to Health Maintenance Results * eGFR (08/09/2024 1:19 PM MIRROR FABRICATION SUPERVISOR) eGFR 89 >=60 mL/min/1. 73 m2 Comment: [...] last reviewed 2021. Blood 08/09/2024 1:19 PM MIRROR FABRICATION SUPERVISOR 08/09/2024 8:27 PM MIRROR FABRICATION SUPERVISOR [facility] Betsey Teague MD LAB BLOOD ORDER[place] [address] Department [place] [address] * (ABNORMAL) Comprehensive metabolic panel (08/09/2024 1:19 PM MIRROR FABRICATION SUPERVISOR) Sodium 131(L) 135 - 145 mmol/L Potassium, [...] Units/L [facility] Blood 08/09/2024 1:19 PM MIRROR FABRICATION SUPERVISOR 08/09/2024 8:06 PM MIRROR FABRICATION SUPERVISOR Tab Teague MD LAB BLOOD ORDERABLES Fi nal Result Performing Organization Address [facility] Co de Phone Number [place] Department [place] [address] * eGFR (07/18/2024 3:49 PM MIRROR FABRICATION SUPERVISOR) eGFR 65 >=60 mL/min/1. 73 m2 Comment: [...] last reviewed 2021. Blood 07/18/2024 3:49 PM MIRROR FABRICATION SUPERVISOR 07/18/2024 9:02 PM MIRROR FABRICATION SUPERVISOR Tab Teague MD LAB BLOOD ORDERABLES Fi nal Result Performing Organization Address [facility]/ZIP Co de Phone Number [place] [address] Department [place] [address] * (ABNORMAL) Comprehensive metabolic panel (07/18/2024 3:49 PM MIRROR FABRICATION SUPERVISOR) Sodium 133(L) 135 - 145 mmol/L Potassium, pl 5.3(H) 3.3 - 4.9 mmol/L [facility] Chloride 96(L) 97 - 110 mmol/L [facility] CO2 28 22 - 32 mmol/L C[place]ER [...] Units/L [facility] Blood 07/18/2024 3:49 PM MIRROR FABRICATION SUPERVISOR 07/18/2024 7:54 PM MIRROR FABRICATION SUPERVISOR [facility] Betsey Teague MD LAB BLOOD ORDERABLES nal Result [place] [address] Department [place] [address] * Screening Mammogram Bilateral W Laz (05/02/2019 9:35 AM MIRROR FABRICATION SUPERVISOR) Anatomical Region Laterality Modality Breast Bilateral Mammography Narrative 05/03/2019 8:58 AM MIRROR FABRICATION SUPERVISOR Screening Mammogram Bilateral W Laz: 05/02/19 Clinical: [...] 1 or 2 Site (05/25/2018 8:11 AM MIRROR FABRICATION SUPERVISOR) Anatomical Region Laterality Modality Body N/A Radiographic Amada ging Narrative 05/25/2018 8:28 AM MIRROR FABRICATION SUPERVISOR Patient Name: Shelyl Mims Date of : 1945 Date of scan: 05/25/2018 Bone mineral density was performed on a Holo[employer] audience Discovery Densitometer. Machine Cross-calibration and Precision studies [...] density scan were prepared by Kaya Harper (R)([facility]) who is accredited by the International Society of Clinical Densitometry. The overall patient assessment and scan interpretation were performed by Alina Avina M.D. who is certified by the International Society of Clinical Densitometry. [id number] Alina Avina MD IMG DXA PROCEDURES Final Re sult * COLONOSCOPY REPORT (12/08/2012) Anatomical Region Laterality Modality Other Narrative 12/08/2012 Ordered by an unspecified provider. Historical Provider GI PROCEDURE ORDERABLES F inal Result from Last 3 Months or Most Recently Relevant to Health Maintenance Insurance MEDICARE [facility] BLUE CROSS MEDICARE SUPPLEMENT MEDICARE MEDICARE [facility] MEDICARE SUPPLEMENT Advance Directives For more information, please contact: [phone] * Full Code (Latest Code Status on File) Date Activated Date Inactivated Comments 09/07/2023 3:49 PM 09/08/2023 6:51 PM Care Teams Flipping Machine Operator Relationship Specialty Start Date End Date Alejandro Melgar MD [address] [place] [address] PCP - General Internal Medicine 09/23/22 Warner Guy MD [address] [place] [address] Consulting Physician Cardiology 06/22/23
--- OUTSIDE RECORDS SUMMARY | 2024-09-10 11:54 | XMS_ITS | Encounter Summary ---
Author Organization [facility] Healthcare Address [address] [place] [address] Care Team Providers Care Field Sampling Technician Name Role Phone Alejandro Melgar MD Primary Care Provider [phone] Warner Guy MD Unavailable [phone] Encounter Details Date Type Department Care Team (Late st Contact Info) Description 08/10/2024 Results Follow-Up [facility] Medical Group Cardiology [address] [place] [address] Tab Teague MD [address] [address] Social History Tobacco Use Types [...] on file Legal Sex Female 10:21 PM SQUARE CUTTER Gender Identity Female 02/05/2022 7:21 AM CDT Sexual Orientation Straight 02/05/2022 7: 21 AM CDT documented as of this encounter Plan of Treatment Not on file documented as of this encounter Visit Diagnoses Not on filedocumented in this encounter Care Teams Field Sampling Technician Relationship Specialty Start Date End Date Alejandro Melgar MD [address] [place] [address] PCP - General Internal Medicine 09/23/22 Warner Guy MD [address] [place] [address] Consulting Physician Cardiology 06/22/23 documented as of this encounter
--- OUTSIDE RECORDS SUMMARY | 2024-09-10 11:54 | XMS_ITS | Referral Summary ---
Author Organization [facility] Address [address] [place] [address] Care Team Providers Care Computer Help Desk Specialist Name Role Phone Alejandro Melgar MD Primary Care Provider [phone] Warner Guy MD Unavailable [phone] Encounters Date Type Department Care Team Description 08/10/2024 Results Follow-Up [facility] Medical [facility] Cardiology [address] [facility] [address] [place] [phone] Tab Teague MD 08/09/2024 1:19 PM PIT WORKER P[employer]OVEL - 08/09/2024 11:59 PM PIT WORKER [employer] Hospital Encounter [address] [id number] Primary hypertension Discharge Disposition: Discharge to home or self care 08/09/2024 1:15 PM PIT WORKER POWER SHOVEL Lab [facility] Medical Group Outpatient Lab at [address] [address] Primary hypertension (Primary Dx) 07/19/2024 Telephone [facility] Cardiology [address] [facility] [address] [place] [address] Tab Teague MD Lab Results; Med Management 07/18/2024 2:10 PM PIT WORKER [employer]OVEL - 07/18/2024 11:59 PM PIT WORKER POWER SHOVEL Hospital Encounter [facility] [address] [place] [address] Primary hypertension Discharge Disposition: Discharge to home or self care 07/18/2024 2:15 PM PIT WORKER POWER SHOVEL Lab [facility] Medical Group Outpatient Lab at [address] [phone] Mixed hyperlipidemia (Primary Dx) 07/05/2024 11:00 AM PIT WORKER POWER SHOVEL Office Visit [facility] Medical [facility] Cardiology at [address] [place] [address] Tab Teague MD Paroxysmal atrial [...] allergy_desc: PENICILLAMINE Penicillins Rash Medium 08/26/2007 Medications [id number]-WS -lycopen-lutein 0.4 mg-300 mcg- 250 mcg tabletIndicatio [...] on file Legal Sex Female 10:21 PM PIT WORKER [employer]OWER [employer]OVEL Gender Identity Female 02/05/2022 7:21 AM CDT Sexual Orientation Straight 02/05/2022 7: 21 AM CDT Last Filed Vital Signs Vital Sign Reading Time Taken Comments Blood Pressure 152/78 07/05/2024 10:46 AM PIT WORKER [employer]OWER SHOVEL Pulse 54 07/05/2024 10:46 AM PIT WORKER [employer]OWER [employer]EL Temperature 36.7 C (98 F) 02/24/2024 11:40 AM CDT Respiratory Rate 13 10/14/2023 9:48 AM CDT Oxygen Saturation 98% 07/05/2024 10:46 AM PIT WORKER [employer]OWER SHOVEL Inhaled Oxygen Concentration - - Weight 68 kg (150 lb) 07/05/2024 10:46 AM PIT WORKER [employer]OWER SHOVEL Height 167.6 cm (5' 6 ) 07/05/2024 10:46 AM P[employer] WORKER POWER SHOVEL Body Mass Index 24.21 07/05/2024 10:46 AM PIT WORKER POWER SHOVEL Plan of Treatment Not on file Medical Devices Implanted Type Area Hard Tile Setter Apprentice Device Identifier Shelf Expiration Date Model / Serial / Lot [employer] Watchman Flx Procedure Device Wmflxperproc - S0 - [id number] Implanted:Qty: 1 on 09/07/2023 by Donn Rosas MD at [facility] Left Atrial Appendage Occluder Left: Atrial Appendage [employer] Fredi 04/27/2026 [id number] / 0 / [id number] [employer] Device Clsr Perclose Prostyle Sut-Mediatd Closure-Repair Sys 63491-82 - S0 - [id number] Implanted:Qty: 1 on 09/07/2023 by Donn Rosas MD at [facility] [employer] 06/13/2025 39032-91 / 0 / [id number] [employer] Device Clsr Perclose Prostyle Sut-Mediatd Closure-Repair Sys 19370-76 - S0 - [id number] Implanted:Qty: 1 on 09/07/2023 by Donn Rosas MD at [facility] [employer] 06/13/2025 44822-38 / 0 / [id number] Procedures Procedure Name Priority Date/Time Associated Diagnosis Comments EGFR Routine 08/09/2024 1:19 PM PIT WORKER [employer]EL Primary hypertension COMPREHENSIVE METABOLIC PANEL Routine 08/09/2024 1:19 PM PIT WORKER [employer]EL Primary hypertension EGFR Routine 07/18/2024 3:49 PM PIT WORKER POWER SHOVEL Primary hypertension COMPREHENSIVE METABOLIC PANEL Routine 07/18/2024 3:49 PM PIT WORKER POWER SHOVEL Primary hypertension SCREENING MAMMOGRAM BILATERAL W LAZ Schedule Routine, Read Routine (OP Routine) 05/02/2019 9:35 AM PIT WORKER POWER SHOVEL Encounter for screening mammogram for malignant neoplasm of breast DEXA AXIAL SKELETON BONE DENSITY 1 OR MORE SITES Schedule Routine, Read Routine (OP Routine) 05/25/2018 8:11 AM PIT WORKER POWER SHOVEL Osteoporosis without current pathological fracture, unspecified osteoporosis type COLONOSCOPY REPORT 12/08/2012 from Last 3 Months or Most Recently Relevant to Health Maintenance Results * eGFR (08/09/2024 1:19 PM PIT WORKER POWER SHOVEL) eGFR 89 >=60 mL/min/1. 73 m2 Comment: [...] last reviewed 2021. Blood 08/09/2024 1:19 PM PIT WORKER POWER SHOVEL 08/09/2024 8:27 PM PIT WORKER POWER SHOVEL [facility] Betsey Teague MD LAB BLOOD ORDERABLES Fi nal Result [facility] [address] Department [place] [address] * (ABNORMAL) Comprehensive metabolic panel (08/09/2024 1:19 PM PIT WORKER POWER SHOVEL) Sodium 131(L) 135 - 145 mmol/L Potassium, [...] Units/L CERNER CH Blood 08/09/2024 1:19 PM PIT WORKER POWER SHOVEL 08/09/2024 8:06 PM PIT WORKER POWER SHOVEL Tab Teague MD LAB BLOOD ORDERABLES Fi nal Result Performing Organization Address [facility]/ZIP Co de Phone Number ELOISE ARCE [address] [place] [address] * eGFR (07/18/2024 3:49 PM PIT WORKER POWER SHOVEL) eGFR 65 >=60 mL/min/1. 73 m2 Comment: [...] last reviewed 2021. Blood 07/18/2024 3:49 PM PIT WORKER POWER SHOVEL 07/18/2024 9:02 PM PIT WORKER POWER SHOVEL Tab Teague MD LAB BLOOD ORDERABLES Fi nal Result Performing Organization Address [facility]/ZIP Co de Phone Number ELOISE ARCE [address] [employer] [place], [place] [id number] * (ABNORMAL) Comprehensive metabolic panel (07/18/2024 3:49 PM PIT WORKER POWER SHOVEL) Sodium 133(L) 135 - 145 mmol/L Potassium, [...] Units/L CERNER CH Blood 07/18/2024 3:49 PM PIT WORKER POWER SHOVEL 07/18/2024 7:54 PM PIT WORKER POWER SHOVEL [facility] Betsey Teague MD LAB BLOOD ORDERABLES Fi nal Result ELOISE ARCE [address] [place] [address] * Screening Mammogram Bilateral W Laz (05/02/2019 9:35 AM PIT WORKER POWER SHOVEL) Anatomical Region Laterality Modality Breast Bilateral Mammography Narrative 05/03/2019 8:58 AM PIT WORKER POWER SHOVEL Screening Mammogram Bilateral W Laz: 05/02/19 Clinical: [...] 1 or 2 Site (05/25/2018 8:11 AM PIT WORKER POWER SHOVEL) Anatomical Region Laterality Modality Body N/A Radiographic Amada ging Narrative 05/25/2018 8:28 AM PIT WORKER POWER SHOVEL Patient Name: Shelly Mims Date of : 1945 Date of scan: 05/25/2018 Bone mineral density was performed on a HoloOrckestra Discovery Densitometer. Machine Cross-calibration and Precision studies [...] by the International Society of Clinical Densitometry. [id number] Alina Avina MD IMG DXA PROCEDURES Final Re sult * COLONOSCOPY REPORT (12/08/2012) Anatomical Region Laterality Modality Other Narrative 12/08/2012 Ordered by an unspecified provider. Historical Provider GI PROCEDURE ORDERABLES F inal Result from Last 3 Months or Most Recently Relevant to Health Maintenance Insurance MEDICARE [facility] MEDICARE SUPPLEMENT MEDICARE MEDICARE [facility] MEDICARE SUPPLEMENT Advance Directives For more information, please contact: [phone] * Full Code (Latest Code Status on File) Date Activated Date Inactivated Comments 09/07/2023 3:49 PM 09/08/2023 6:51 PM Care Teams Computer Help Desk Specialist Relationship Specialty Start Date End Date Alejandro Melgar MD [address] [place] [address] PCP - General Internal Medicine 09/23/22 Warner Guy MD [address] [place] [address] Consulting Physician Cardiology 06/22/23
--- OUTSIDE RECORDS SUMMARY | 2024-09-10 11:54 | XMS_ITS | Clinical Summary ---
Author Organization [facility] Address [address] [place] [address] Care Team Providers Care Channel Man Name Role Phone Jean Paul Newton MD Primary Care Provider Allergies Active Allergy Reactions Criticality Noted Date [...] tremor 05/01/2021 Vertigo 05/29/2019 Hypertriglyceridemia 07/09/2015 A-fib ([facility]) Family History Medical History Relation Comments [...] to complete this topic Insurance MEDICARE [facility] MEDICARE [facility] Care Teams Channel Man Relationship Specialty Start Date End Date Jean Paul Newton MD [address] [place] [id number] PCP - General INTERNAL MEDICINE 08/28/21
[2024-09-10 12:00] VITALS: BP 158/61; PULSE 56; RESP 19; O2SAT 98
[2024-09-10 12:04] LABS: Alanine Aminotransferase 131 U/L (6-35); Albumin Level 3.5 g/dL (3.5-5.1); Alkaline Phosphatase 220 U/L (38-126); Anion Gap 8 mmol/L (4-12); Aspartate Amino Transferase 70 U/L (14-36); Bilirubin,Total 0.5 mg/dL (0.2-1.3); Blood Urea Nitrogen 22 mg/dL (7-17); Calcium 9.1 mg/dL (8.4-10.2); Carbon Dioxide 28 mmol/L (22-30); Chloride 100 mmol/L (98-107); Estimated Glomerular Filt Rate > 60; Glucose 87 mg/dL (65-110); Potassium 4.4 mmol/L (3.4-5.0); Sodium 136 mmol/L (137-145)
[2024-09-10 12:09] LABS: INR 0.9; Prothrombin Time 13.1 Seconds (11.1-14.7)
[2024-09-10 12:29] LABS: Lactic Acid Reflex 0.8 mmol/L (0.7-2.0)
[2024-09-10 12:30] VITALS: BP 163/62; PULSE 60; RESP 19; O2SAT 99
--- NOTE | 2024-09-10 12:40 | ED.GIBLEED ---
HPI - GI Bleed General Chief complaint: GI Bleed Stated complaint: bloody stools Time Seen by Provider: 09/10/24 11:43 Source: patient and family Mode of arrival: EMS Limitations: physical limitation and dementia History of Present Illness HPI Narrative: Patient presents with report of bloody stools. noticed some bloody mucus in her brief for 2 days. This occurred on Wednesday which had been preceded by explosive nonbloody diarrhea the day prior, on . 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 Last colonoscopy was in the . Patient's had discussed the issue of the bloody stool with her primary care physician Dr Pascal had recommended she be evaluated in the emergency department. She receives G-tube feeds which have been going okay without issue. She has a home healthcare nurse that assists. She is alert oriented x1 which is her baseline as she has dementia.. She was recently on antibiotics for a stye in her eye. She also has hypertension and is reportedly immunocompromised. She has a history of atrial fibrillation but is not on any anticoagulation. No steroid NSAID use. Patient at times will say yes and response to being asked if she has abdominal pain and other times with same now. She is taking 1 mg aspirin daily. This has never happened before. Denies history of CHF or liver failure/injury according to . Related Data Home Medications ?Medication ?Instructions ?Recorded ?Confirmed ?Last Taken ?Type acetaminophen 650 mg feeding tube Q6H PRN Pain 11/22/22 09/05/24 Unknown History (Scale Score 1-3) melatonin 5 mg feeding tube HS PRN Sleep 11/22/22 09/05/24 Unknown History sennosides-docusate sodium 8.6 - 50 mg feeding tube HS PRN 11/22/22 09/05/24 Unknown History Constipation atorvastatin 10 mg tablet 10 mg PO DAILY 04/21/23 09/05/24 Unknown History aspirin 81 mg tablet,delayed 81 mg PO DAILY 09/08/23 09/05/24 Unknown History release cholecalciferol (vitamin D3) 50 50 mcg PO DAILY 09/08/23 09/05/24 Unknown History mcg (2,000 unit) capsule hyoscyamine sulfate 0.125 mg tablet 0.125 mg PO QID 07/25/24 09/05/24 Unknown History Allergies Allergy/AdvReac Type Severity Reaction Status Date / Time No Known Drug Allergies AdvReac Unknown Verified 09/10/24 11:42 [facility] Past Medical History Medical History Hyperlipidemia Peripheral edema Vitamin D deficiency Adult BMI 19-24 kg/sq m Excessive salivation Dysphagia as late effect of cerebrovascular accident (CVA) Weakness Hypothyroidism G tube feedings Traumatic brain injury Neurogenic bladder Fracture of femoral neck, right BMI 20.0-20.9, adult Orthostatic hypertension Dementia Pre-diabetes SVT (supraventricular tachycardia) Tachycardia Scoliosis Impaired functional mobility, balance, gait, and endurance Cataracts, bilateral Unintentional weight loss Cognitive dysfunction Small vessel disease Osteoporosis On care home drug therapy Adult BMI <19 kg/sq m Syncopal episodes Obstructive sleep apnea on CPAP Syncope Hypertension Chronic anticoagulation Paroxysmal atrial fibrillation Intraparenchymal hemorrhage of brain Subarachnoid hemorrhage Ischemic cerebrovascular accident (CVA) Surgical History Surgical History History of colonoscopy last performed in the H/O wrist surgery History of laparoscopic cholecystectomy History of percutaneous endoscopic gastrostomy History of cholecystectomy Family History Family History Father Alzheimer's dementia Mother Dementia Bladder infection Mother , sepsis- bladder infection Dementia Sibling No problems noted. Social History Social History Social History: She is currently at [facility] for rehab. According to the the patient is a DNI Surrogate medical decision maker: Kaylynn Hoopertra, . Code status: Modified code. DNI Smoking status: Never smoker Second hand tobacco smoke exposure: No Alcohol intake: never Drinks per week: 1 Alcohol use details: wine Substance use: never Substance use type: does not use Lack of Transportation: No Lack of Food: Never True Current Housing: I Have Housing Concerned About Future Housing: No Difficulty Paying Gas/Electric Bills: No Difficulty Paying for Meds: No Currently Unemployed: No Education: Master's Degree or Higher Difficulty w/ Childcare or Family Care: No Living arrangements: with family Additional living arrangements comments: Prior to her recent hospitalization she was living with her in [place]. 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 Gender identity (if verbalized by the patient): Male Spiritual care concerns: No Exam Narrative: GENERAL: Well-appearing, well-nourished, and in no acute distress. HEAD: Normocephalic, atraumatic. EYES: Non injected, non icteric. Stye R eyelid. ENT: Nares clear, no rhinorrhea or epistaxis. NECK: Supple. CHEST: Speaking in full sentences. No respiratory distress. HEART: Bradycardic rate and rhythm. ABDOMEN: Soft, nondistended. No tenderness to palpation throughout. No rigidity or guarding. Not peritoneal. G-tube in place. TRAN performed which has mucous on lubricated gloved finger. FOBT/guiaic negative. EXTREMITIES: No lower extremity edema. SKIN: Warm, dry, no rash. NEURO: No focal deficits. Alert and oriented to self. Unable to answer health history. Inconsistent responses. PSYCH: Normal mood and affect. Course Vital Signs Vital signs: Vital Signs Temperature 98 F 09/10/24 11:21 Pulse Rate 57 L 09/10/24 11:21 Respiratory Rate 14 09/10/24 11:21 Blood Pressure 164/60 H 09/10/24 11:21 Pulse Oximetry 99 09/10/24 11:21 Oxygen Delivery Room Air 09/10/24 11:21 Temperature 97.8 F 09/10/24 15:45 Pulse Rate 59 L 09/10/24 15:45 Respiratory Rate 16 09/10/24 15:45 Blood Pressure 185/65 H 09/10/24 15:45 Pulse Oximetry 98 09/10/24 15:45 Oxygen Delivery Room Air 09/10/24 11:21 MDM - GI Bleed MDM Narrative Medical decision making narrative: Patient presents after concern on a mucus and blood noted in patient's breathes that lasted for 2 days. This started on Wednesday and again happened Wednesday but none has been appreciated today. This followed an episode of explosive diarrhea that occurred on . Patient not on any steroids or anticoagulation. She is on aspirin 81 mg daily not NSAIDs. Patient has dementia so history is limited, at times she will complain of abdominal pain another time she will not asked repeatedly, inconsistent responses. In the emergency department she is afebrile with vital signs notable for bradycardia and hypertension. No noted hematochezia/melena. In the ED they are initially afebrile and hemodynamically stable without tachycardia or hypotension. Based on history and physical, suspect lower GI bleed so will go ahead and order CBC, CMP, coagulation studies, lactate, and type and screen. My differential diagnosis Possible ischemic bowel or anal fissure. IBD/infectious diarrhea possible. Possibly hemorrhoids. Midland Score (predicts readmission risk in patients with acute lower GI bleeding) Based on age, sex, previous lower GI bleed admission, TRAN findings, HR, SBP, and initial Hgb: 10 points (+2 age, +8 for Hgb) ; 91?% Probability of safe discharge (absence of rebleeding, blood transfusion, therapeutic intervention, 28 day readmission, or ). Discharge NOT recommended. Consider admission with further workup and resuscitation as necessary. Patient is not anemic. No need for repeat H&H in 4 hours at this time given GI bleeding seems to have resolved as it had occurred on Wednesday thus this essentially represents post-event CBC. She does have a transaminitis but is s/p cholecystectomy per review of EMR. Per review of the EMR she previously had an ALT elevations that was isolated but the other elevated transaminases are new. Patient's Midland score is right on the cusp, as above. I did discuss with patient's the risks and benefits and it does seem reasonable for patient to be either admitted or discharged with strict emergency department return precautions and close follow-up. She has him as her primary plumbing inspector, home health care nurse that comes, and follow-up with her primary care physician. He expressed his concern that if she were admitted she would be at risk of isaiah an infection as this has happened before. This is a very reasonable concern. Also, given her dementia, she is at risk of delirium and/or sundowning. She previously had a soft sugar operator head but has not followed regularly with them. Will be provided in you referral contact information. Extensively discussed a bowel regimen with patient's as he had concerns about her having constipation but she receives tube feeds with Jevity and there are certain medications and materials that are not supposed to be used in the tubing so he didn't know about the use of certain bowel regimen medications. Similarly, didn't know if safe to insert suppository and we discussed that possibly best to avoid that while there are questionable rectosigmoid findings on CT scan. He had also already read the report and we discussed that this could be a nonspecific colitis and that otherwise would defer antibiotics at this time but could discussed with soft sugar operator head regarding whether pursuing a colonoscopy verses discussing with primary care physician to see repeating CT scan were recommended. Patient stable for discharge. Will arrange transportation. Differential Diagnosis Differential diagnosis: Likely hemorrhoids, infectious diarrhea, gastritis, Peggy-Holliday syndrome, Upper gastrointestinal hemorrhage, Lower gastrointestinal hemorrhage, hematochezia, melena and anal fissure Medical Records Attestation: I reviewed the patient's medical records. Medical records narrative: Per previous ER visit: Patient has been evaluated by Dr. Mendoza in 2021 and was determined not to put her on any anticoagulation due to her dementia and increased risk for falls. Patient has been placed on a low-dose metoprolol for rate control. Lab Data Attestation: I reviewed the patient's lab results. Lab results narrative: normal lactic acid 09/10/24 11:46 09/10/24 11:46 Labs: Lab Results 09/10/24 09/10/24 09/10/24 Range/Units 11:45 11:46 12:15 WBC 7.3 (4.5-10.0) K/mm3 RBC 4.03 L (4.2-5.4) M/mm3 Hgb 12.2 (12.0-15.0) g/dL Hct 37.5 (37.0-47.0) % MCV 93.1 (80-100) fl MCH 30.3 (26-34) pg MCHC 32.5 (32-36) g/dl RDW 13.5 (11.5-14.5) % Plt Count 221 (150-375) k/mm3 MPV 11.7 H (7.4-10.4) fl Immature Gran % (Auto) 0.4 (0-0.5) % Neut % (Auto) 73.0 (45.5-73.1) % Lymph % (Auto) 13.7 L (18.3-44.2) % Glades % (Auto) 10.5 H (2.6-8.5) % Eos % (Auto) 1.6 (0-4.4) % Baso % (Auto) 0.8 (0.2-1.2) % Lymph # (Auto) 1.00 (0.9-3.2) K/mm3 Glades # (Auto) 0.8 H (0.1-0.6) K/mm3 Eos # (Auto) 0.1 (0-0.3) K/mm3 Baso # (Auto) 0.1 (0.0-0.1) K/mm3 Abs Immat Gran (auto) 0.03 (0.00-0.031) K/mm3 Absolute Neuts (auto) 5.3 (1.3-6.7) K/mm3 Absolute Nucleated RBC 0.000 (0.0-0.012) K/mm3 Nucleated RBC % 0.0 (0.0-0.2) % PT 13.1 (11.1-14.7) Seconds INR 0.9 APTT 25.0 (22.3-36.8) Seconds Sodium 136 L (137-145) mmol/L Potassium 4.4 (3.4-5.0) mmol/L Chloride 100 (98-107) mmol/L Carbon Dioxide 28 (22-30) mmol/L Anion Gap 8 (4-12) mmol/L BUN 22 H (7-17) mg/dL Creatinine 0.82 (0.7-1.0) mg/dL Estim Creat Clear Calc Not Reportable Estimated GFR > 60 (59 - ) Glucose 87 (65-110) mg/dL Lactic Acid 0.8 (0.7-2.0) mmol/L Calcium 9.1 (8.4-10.2) mg/dL Total Bilirubin 0.5 (0.2-1.3) mg/dL AST 70 H (14-36) U/L ALT 131 H (6-35) U/L Alkaline Phosphatase 220 H (38-126) U/L Total Protein 6.0 L (6.3-8.2) g/dL Albumin 3.5 (3.5-5.1) g/dL Lipase 96 (23-300) U/L Blood Type A Positive Antibody Screen Negative Imaging Data Radiologist's impression: Impressions Abdomen/Pelvis CT 09/10/24 13:35 IMPRESSION: Short segment colitis within the rectosigmoid colon for which follow-up to resolution is recommended, as a malignancy may have a similar appearance. No additional acute pathology is appreciated, as detailed above. Discharge Plan Discharge Clinical Impression: Blood per rectum, Transaminitis, Colitis Patient Disposition: Home, Self-Care Condition: Stable Instructions: Antibiotic Form, Rectal Bleeding (ED), Colitis (ED), Transaminitis (ED) Additional Instructions: As we discussed, follow-up with primary care physician. Do not hesitate to return to the emergency department with any new, worsening, unmanaged symptoms (fever, recurrent bleeding, not tolerating g tube feedings, etc.). given the findings of the colitis which could not exclude malignancy that was seen on CT you did discuss this with primary care physician. The name of a soft sugar operator head is also provided below if you are unable to follow-up with her previous GI doctor. Patient Language: Faroese Prescriptions: No Action atorvastatin 10 mg tablet 10 mg PO DAILY (DME) Shoe Lift See Rx Instructions .Route .MEDSUPPLY Qty: 1 0RF Rx Instructions: As directed mupirocin calcium 2 % cream 1 applic topical BID PRN (Reason: G tube infection) Qty: 30 1RF lisinopril 20 mg tablet 20 mg PO BID Qty: 180 1RF Rx Instructions: Please D/C the Lisinopril 10mg. Thank you lactulose [Generlac] 10 gram/15 mL solution See Rx Instructions .ROUTE .COMPLEX Qty: 473 0RF Rx Instructions: 30 cc orally bid; sodium bicarbonate 650 mg tablet 650 mg feeding tube BID Qty: 90 2RF (DME) Mechanical Bre Lift 0 .Route .MEDSUPPLY Qty: 1 0RF Rx Instructions: As directed amiodarone [Pacerone] 200 mg tablet 200 mg feeding tube DAILY Qty: 30 0RF acetaminophen 650 mg feeding tube Q6H PRN (Reason: Pain (Scale Score 1-3)) melatonin 5 mg feeding tube HS PRN (Reason: Sleep) sennosides-docusate sodium 8.6 - 50 mg feeding tube HS PRN (Reason: Constipation) (DME) Continued Swallow Therapy VitaSim technique See Rx Instructions .Route .MEDSUPPLY Qty: 1 0RF Rx Instructions: Hermila Tamayo, Therapy Senior Solutions Engineer, [facility]. Fax: [phone] (DME) Jointer Machine Operator Consult P&O [place] See Rx Instructions .Route .MEDSUPPLY Qty: 1 0RF Rx Instructions: Fax: [phone]. Pt. will need to be evaluated at [facility] ([facility]) Wheel Chair See Rx Instructions .Route .MEDSUPPLY Qty: 1 0RF Rx Instructions: Built in Space with Rolco seat aspirin 81 mg tablet,delayed release (DR/EC) 81 mg PO DAILY cholecalciferol (vitamin D3) 50 mcg (2,000 unit) capsule 50 mcg PO DAILY (DME) Jevity nutrional drink See Rx Instructions .Route .MEDSUPPLY Qty: 186 1RF Rx Instructions: 355 (6 cartons daily) calorie each drink, 2,130 calorie daily, 186 cartons monthly rivastigmine tartrate 3 mg capsule See Rx Instructions .ROUTE .COMPLEX Qty: 180 2RF Dose Instruction: Give 1 capsule via feeding tube twice daily Rx Instructions: Give 1 capsule via feeding tube twice daily memantine 10 mg tablet See Rx Instructions .ROUTE .COMPLEX Qty: 180 0RF Dose Instruction: TAKE 1 TABLET BY MOUTH TWICE DAILY Rx Instructions: TAKE 1 TABLET BY MOUTH TWICE DAILY hyoscyamine sulfate 0.125 mg tablet 0.125 mg PO QID metoprolol succinate 25 mg tablet extended release 24 hr 25 mg PO BID Qty: 180 0RF levothyroxine 25 mcg tablet See Rx Instructions .ROUTE .COMPLEX Qty: 90 0RF Dose Instruction: TAKE 1 TABLET BY MOUTH DAILY Rx Instructions: TAKE 1 TABLET BY MOUTH DAILY Follow-up/Referrals: Alejandro Melgar MD [Primary Care Provider] - Erwin Megloza MD [Physician] - ( Gastroenterology) Time of Disposition: 14:52
[2024-09-10 13:00] VITALS: BP 187/64; PULSE 59; RESP 18; O2SAT 99
[2024-09-10 13:17] LABS: Lipase 96 U/L (23-300)
[2024-09-10 14:37] VITALS: BP 171/94; PULSE 60; RESP 18; O2SAT 97
[2024-09-10 15:45] VITALS: BP 185/65; PULSE 59; RESP 16; TEMP 36.6; O2SAT 98
== END 2024-09-10 15:54 | disposition home or self-care (01) ==
PROVIDERS: Student in an Organized Health Care Education/Training Program; Emergency Provider Student in an Organized Health Care Education/Training Program; PCP Internal Medicine
DX: K62.5 Hemorrhage of anus and rectum (principal); K52.9 Noninfective gastroenteritis and colitis, unspecified; R74.01 Elevation of levels of liver transaminase levels; F03.90 Unspecified dementia, unspecified severity, without behavioral disturbance, psychotic disturbance, mood disturbance, and anxiety; I69.991 Dysphagia following unspecified cerebrovascular disease; R13.10 Dysphagia, unspecified; I48.0 Paroxysmal atrial fibrillation; I10 Essential (primary) hypertension; I73.9 Peripheral vascular disease, unspecified; E78.5 Hyperlipidemia, unspecified; E55.9 Vitamin D deficiency, unspecified; E03.9 Hypothyroidism, unspecified; R73.03 Prediabetes; D84.9 Immunodeficiency, unspecified; G47.33 Obstructive sleep apnea (adult) (pediatric); M81.0 Age-related osteoporosis without current pathological fracture; Z93.1 Gastrostomy status; Z74.01 Bed confinement status; Z87.820 Personal history of traumatic brain injury; Z90.49 Acquired absence of other specified parts of digestive tract; Z79.82 Long term (current) use of aspirin; Z79.899 Other long term (current) drug therapy
CPT/HCPCS: 36415; 74177; 80053; 83605; 83690; 85025; 85610; 85730; 86850; 86900; 86901; 99284; Q9967

== ENCOUNTER 2025-01-10 12:40 | Outpatient (CLI) | payer MEDICARE, SELFPAY ==
--- OUTSIDE RECORDS SUMMARY | 2025-01-10 12:43 | XMS_ITS | Clinical Summary ---
Author Organization [facility] Address [address] [place] [id number] Care Team Providers Care Fire Chief Name Role Phone Jean Paul Newton MD Primary Care Provider [phone] Allergies Active Allergy Reactions Criticality Noted Date [...] tremor 05/01/2021 Vertigo 05/29/2019 Hypertriglyceridemia 07/09/2015 A-fib ([facility] [address]/[facility]) Family History Medical History Relation Comments No [...] 11:02 AM CDT Height 166.4 cm (5' 5.5) 10/20/2021 11:02 AM CD T Body Mass Index 19.67 10/20/2021 11:02 AM CDT Plan of Treatment Health Maintenance Due Date Last Done Comments Hepatitis C 1963 Annual Medicare Wellness Visit 2011 Dexa Scan (General) 2011 RSV Immunization or 60+ Years (1 - 1-dose 75+ series) 2021 COVID-19 Vaccine ( - season) 2024 04/04/2021, 08/08/2020, 07/11/2020 DTaP, Tdap and Td Vaccines (3 - Td or Tdap) 12/14/2026 12/14/2016, 03/18/2010 Pneumococcal Vaccine: 50+ Years Completed 03/29/2018, 12/22/2016, 06/02/2016 Zoster Vaccines [...] patient's age to complete this topic Insurance [facility] [place] [address] MEDICARE [facility] MEDICARE [facility] Care Teams Fire Chief Relationship Specialty Start Date End Date Jean Paul Newton MD [address] [place] [id number] PCP - General INTERNAL MEDICINE 08/28/21
--- OUTSIDE RECORDS SUMMARY | 2025-01-10 12:43 | XMS_ITS | Clinical Summary ---
Author Organization [facility] Address [address] [place] [address] Care Team Providers Care Engineering Executive Name Role Phone Alejandro Melgar MD Primary Care Provider [phone] Warner Guy MD Unavailable [phone] Allergies Active Allergy Reactions Criticality Noted Date Comments Candex (Dextrates) Unknown 07/02/1998 allergy_desc: CARBAPENEM Cephalosporins Unknown 07/02/1998 allergy_desc: CEPHALOSPORINS Nystatin Other (See comments),Unknown Medium 07/02/1998 allergy_desc: CARBAPENEM Penicillamine Unknown 07/02/1998 allergy_desc: PENICILLAMINE Penicillins Rash Medium 08/26/2007 Medications [id number]-xps-YO- lycopen-lutein 0.4 mg-300 mcg- 250 mcg tabletIndication s:Vitamin Deficiency Prevention Take by mouth 06/02/2016 Active cholecalciferol, vitamin D3, (VITAMIN D3 ORAL) Take by mouth Active memantine (NAMENDA) 10 mg tablet Take 1 tablet (10 mg total) by mouth 2 (two) times a day 90 tablet 3 10/17/2021 Active rivastigmine (EXELON) 3 mg capsule Take 1 capsule (3 mg total) by mouth 2 (two) times a day 01/12/2022 Active levothyroxine (SYNTHROID) 25 mcg tablet 01/09/2023 Active sodium bicarbonate 650 mg tablet 02/16/2023 Active melatonin 5 mg tablet Take 0.2 tablets (1 mg total) by mouth daily 02/16/2023 Active acetaminophen (TYLENOL) 500 mg tablet 02/16/2023 Active hyoscyamine (LEVSIN) 0.125 mg SL tablet Take 1 tablet (125 mcg total) by mouth 3 (three) times a day as needed 04/23/2023 Active aspirin 81 mg enteric coated tablet Take 1 tablet (81 mg total) by mouth daily Active lisinopriL (PRINIVIL,ZESTRI L) 20 mg tablet Take 1 tablet (20 mg total) by mouth 2 (two) times a day Active atorvastatin (LIPITOR) 10 mg tabletIndication s:History of CVA (cerebrovascular accident) Take 1 tablet (10 mg total) by mouth daily 90 tablet 3 04/10/2024 04/10/20 25 Active senna (SENOKOT) 8.6 mg tablet Take 1 tablet by mouth daily Active metoprolol XL (TOPROL-XL) 25 mg extended release tablet Take 1 tablet (25 mg total) by mouth 2 (two) times a day Active amiodarone (PACERONE) 200 mg tablet TAKE 1 TABLET(200 MG) BY MOUTH DAILY 90 tablet 3 08/21/2024 Active linaCLOtide (LINZESS) 145 mcg capsule Take 1 capsule (145 mcg total) by mouth daily Active hydrALAZINE (APRESOLINE) 10 mg tabletIndication s:hypertension Take 1 tablet (10 mg total) by mouth 2 (two) times a day 90 tablet 3 10/11/2024 Active Active Problems Problem Noted Date Diagnosed [...] Encounters Date Type Department Care Team Description 10/11/2024 11:15 AM CDT Office Visit [facility] Cardiology at [address] [place] [id number] Tab Teague MD Paroxysmal atrial fibrillation (HCC) (Primary Dx); Paroxysmal atrial flutter (HCC); Presence of left atrial appendage closure device; Primary hypertension; Mixed hyperlipidemia 10/11/2024 Orders Only [facility] Cardiology [address] [place] [address] Provider, MD Deanna from Last 3 Months Immunizations Immunization Administration Dates Next Due Influenza, Unspecified 04/14/2023 Surgical History Surgery Date Site/Laterality Comments GALLBLADDER SURGERY Gallbladder Surgery - (Added by TW Conv) CHOLECYSTECTOMY before 2009 G TUBE PLACEMENT Medical History Medical History Date Comments Atrial fibrillation (HCC) Hypertension Hyperlipidemia Syncope Stroke (HCC) Arthritis Cataract Heart disease Sleep apnea Thyroid disease Family History Medical History Relation Name Comments Alzheimer's disease Father Diabetes Maternal Grandfather Min Hip fracture Maternal Grandmother Hearing loss Mother Sonia Memory loss Mother Sonia Relation Name Status Comments Father Maternal Grandfather Min Alive Maternal Grandmother Mother Sonia Social History Tobacco Use Types Packs/Day Years Used Date Smoking Tobacco: Never Smokeless Tobacco: Never Tobacco Cessation:Counseling Given: Not Answered Personal Safety Answer Date Recorded Have you ever been in or are you currently in a harmful physical or emotional relationship or is someone making you feel afraid or unsafe? Denies 10/14/2023 Comments Unknown Sex and Gender Information Value Date Recorded Sex Assigned at Not on file Legal Sex Female 10:21 PM CERAMICS ENGINEER Gender Identity Female 02/05/2022 7:21 AM CDT Sexual Orientation Straight 02/05/2022 7: 21 AM CDT Obstetrics History Last Filed Vital Signs Vital Sign Reading Time Taken Comments Blood Pressure 138/72 10/11/2024 10:58 AM CDT Pulse 52 10/11/2024 10:58 AM CDT Temperature 36.7 C (98 F) 02/24/2024 11:40 AM CDT Respiratory Rate 13 10/14/2023 9:48 AM CDT Oxygen Saturation 97% 10/11/2024 10:58 AM CDT Inhaled Oxygen Concentration - - Weight 68 kg (150 lb) 07/05/2024 10:46 AM CERAMICS ENGINEER Height 167.6 cm (5' 6) 07/05/2024 10:46 AM CERAMICS ENGINEER Body Mass Index 24.21 07/05/2024 10:46 AM CERAMICS ENGINEER Plan of Treatment Health Maintenance Due Date Last Done Comments Depression Screening 1945 Hepatitis C Screening 1945 Hepatitis B Screening 1964 Well Visit 65+ 2011 Osteoporosis Screening-Bone Density Scan 05/25/2020 05/25/2018, 12/30/2017 Covid-19 Vaccine (4 2023-2 5 season) 2024 04/04/2021, 08/08/2020, 07/11/2020 Fall Risk Assessment 10/13/2024 10/14/2023 Influenza Vaccine (#1) 2025 3, 02/23/2019, 02/28/2018, Additional history exists DTaP/Tdap/Td Vaccine (3 - Td or Tdap) 12/14/2026 12/14/2016, 03/18/2010 Colon Cancer Screening-CT Colonography Discontinued 12/08/2012 Colon Cancer Screening-Colonoscopy Discontinued 12/08/2012 Colon Cancer Screening-DNA Stool Discontinued 12/09/19 13 Colon Cancer Screening-FIT Discontinued 12/08/2012 Colon Cancer Screening-FOBT Discontinued 12/08/2012 Colon Cancer Screening-Sigmoidoscopy Discontinued 12/08/2012 Colorectal Cancer Screening Discontinued Pneumococcal vaccine 65+ Completed 018, 12/22/2016, 06/02/2016 Zoster Vaccine Completed 02/27/2019, 12/13, 09/27/2018, Additional history exists Breast Cancer Screening-Mammogram Discontinued 05/02/2019, 04/27/2018, 04/27/2018, Additional history exists Medical Devices Implanted Type Area Finishing Trimmer Device Identifier Shelf Expiration Date Model / Serial / Lot Gridpoint Systemsman Flx Procedure Device Wmflxperproc - S0 - [id number] Implanted:Qty: 1 on 09/07/2023 by Donn Rosas MD at [facility] Left Atrial Appendage Occluder Left: Atrial Appendage [employer] Fredi 04/27/2026 WMFLXPERPROC / 0 / [id number] Parmar Vascular Device Clsr Perclose Prostyle Sut-Mediatd Closure-Repair Sys 98587-20 - S0 - [id number] Implanted:Qty: 1 on 09/07/2023 by Donn Rosas MD at [facility] [employer] V[employer] 06/13/2025 [id number] / 0 / [id number] Parmar V[employer] Device Clsr Perclose Prostyle Sut-Mediatd Closure-Repair Sys 50727-81 - S0 - [id number] Implanted:Qty: 1 on 09/07/2023 by Donn Rosas MD at [facility] [employer] 06/13/2025 [id number] / 0 / [id number] Procedures Procedure Name Priority Date/Time Associated Diagnosis Comments SCREENING MAMMOGRAM BILATERAL W LAZ Schedule Routine, Read Routine (OP Routine) 05/02/2019 9:35 AM CERAMICS ENGINEER Encounter for screening mammogram for malignant neoplasm of breast DEXA AXIAL SKELETON BONE DENSITY 1 OR MORE SITES Schedule Routine, Read Routine (OP Routine) 05/25/2018 8:11 AM CERAMICS ENGINEER Osteoporosis without current pathological fracture, unspecified osteoporosis type COLONOSCOPY REPORT 12/08/2012 from Last 3 Months or Most Recently Relevant to Health Maintenance Results * Screening Mammogram Bilateral W Laz (05/02/2019 9:35 AM CERAMICS ENGINEER) Anatomical Region Laterality Modality Breast Bilateral Mammography Narrative 05/03/2019 8:58 AM CERAMICS ENGINEER Screening Mammogram Bilateral W Laz: 05/02/19 Clinical: [...] 1 or 2 Site (05/25/2018 8:11 AM CERAMICS ENGINEER) Anatomical Region Laterality Modality Body N/A Radiographic Amada ging Narrative 05/25/2018 8:28 AM CERAMICS ENGINEER Patient Name: Shelly Mims Date of : 1945 Date of scan: 05/25/2018 Bone mineral density was performed on a [employer] Discovery Densitometer. Machine Cross-calibration and Precision studies [...] by the International Society of Clinical Densitometry. [id number] Alina Avina MD IMG DXA PROCEDURES Final Re sult * COLONOSCOPY REPORT (12/08/2012) Anatomical Region Laterality Modality Other Narrative 12/08/2012 Ordered by an unspecified provider. Historical Provider GI PROCEDURE ORDERABLES F inal Result from Last 3 Months or Most Recently Relevant to Health Maintenance Insurance MEDICARE [facility] MEDICARE SUPPLEMENT MEDICARE MEDICARE [facility] MEDICARE SUPPLEMENT Advance Directives For more information, please contact: [phone] * Full Code (Latest Code Status on File) Date Activated Date Inactivated Comments 09/07/2023 3:49 PM 09/08/2023 6:51 PM Care Teams Engineering Executive Relationship Specialty Start Date End Date Alejandro Melgar MD [address] [place] [address] PCP - General Internal Medicine 09/23/22 Warner Guy MD [address] [email or web address] [address] [place] [address] Consulting Physician Cardiology 06/22/23
--- OUTSIDE RECORDS SUMMARY | 2025-01-10 12:43 | XMS_ITS | Encounter Summary ---
Author Organization [facility] Address [address] [place] [address] Phone Care Team Providers Care Lpn Medical Assistant Name Role Phone Jean Paul Newton MD Primary Care Provider [phone] Alejandro Melgar MD Primary Care Provider [phone] Warner Guy MD Unavailable [phone] Encounter Details Date Type Department Care Team (Latest Contact Info) Description 01/07/2022 Orders Only [facility] Scanning, Provider Social History Tobacco Use Types Packs/Day Years Used Date Smoking Tobacco: Never Smokeless Tobacco: Never Comments Unknown Sex and Gender Information Value Date Recorded Sex Assigned at Not on file Legal Sex Female 10:21 PM FRENCH BINDING FOLDER Gender Identity Female 02/05/2022 7:21 AM CDT [...] on filedocumented in this encounter Care Teams Lpn Medical Assistant Relationship Specialty Start Date End Date Jean Paul Newton MD [address] [place] [address] PCP - General 04/20/17 09/22/22 Alejandro Melgar MD [address] [place] [address] PCP - General Internal Medicine 09/23/22 Warner Guy MD [address] [place] [address] Consulting Physician Cardiology 06/22/23 documented as of this encounter
--- OUTSIDE RECORDS SUMMARY | 2025-01-10 12:43 | XMS_ITS ---
Author Name Auto Generated, Auto Generated Organization [facility] Address [address] [place] [address] Phone [phone] Care Team Providers Care Clerical Warehouseman Name Role Phone Brayan Shea Unavailable Alejandro Melgar Unavailable [phone] Functional Status No Results Mental Status No Results Allergies and Intolerances Name Onset Date Reaction Severity No Known Allergies (Allergy) WedDec 03 14:38:00 EDT 2022 Encounters Program Name Primary Diagnosis Admission Date/Time Dis charge Date/Time [facility] [place] Feb 21 20:00:00 EDT 2022 null WedSep 25 [...] Time Daily Indication: Pain WedJan 13 22:59:00 EDT 2022Feb 02 13:08:00 EDT 2022 levothyroxine 50 mcg [...] Indication: INFECTION WedJan 04 20:00:00 EDT 2022 [facility] Jan 09 19:59:00 EDT 2022 amLODIPine 5 mg tablet 1 TAB TABLET G-tu be 1 Time Daily Indication: HTN WedJan 04 20:00:00 EDT 2022Feb 16 01:00:00 EDT 2022 melatonin 5 mg tablet 1 TAB TABLET G-tub e PRN Hour Of Sleep Indication: Sleep WedJan 04 20:00:00 ED2022Feb 16 01:00:00 EDT 2022 sennosides 8.6 mg-docusate sodium 50 mg tablet 1 TAB TABLET G-tube PRN Hour Of Sleep Indication: CONSTIPATION WedJan 04 20:00:00 EDT 2022Feb 16 01:00:00 EDT 2022 acetaminophen 325 mg tablet 2 TABS TABLE T G-tube PRN Every 6 Hours Indication: MILD PAIN (1-3) * DO NOT EXCEED 3GM/DAY APAP FROM ALL SOURCES*2 RVRH=878 MG WedJan 04 20:00:00 EDT 2022Feb 16 01:00:00 EDT 2022 Eliquis 5 mg tablet 1 TAB TABLET G-tube 2 Times Daily Indication: BLOOD THINNER WedJan 04 20:00:00 EDT 2022Feb 16 01:00:00 EDT 2022 rivastigmine 3 mg capsule 1 TAB CAPSULE G-tube 2 Times Daily Indication: Dementia WedJan 04 20:00:00 EDT 2022 Sep 05 01:00:00 EDT 2022 Eucerin topical cream 1 [...] Daily Indication: HYPOTHYROIDISM WedJan 04 20:00:00 EDT 2022 [facility] Jan 09 06:14:00 EDT 2022 gabapentin 100 mg capsule 1 CAP CAPSULE G-tube Hour Of Sleep Indication: NERVE PAIN WedJan 04 20:00:00 EDT 2022Feb 16 01:00:00 EDT 2022 memantine 10 mg tablet 1 TAB TABLET G-tu be 1 Time Daily Indication: DEMENTIA WedJan 04 20:00:00 EDT 2022e Sep 05 01:00:00 EDT 2022 metoprolol tartrate 50 mg tablet 1 TAB TABLET G-tube Every 8 Hours Indication: HYPERTENSION WedJan 04 20:00:00 EDT 2022e Sep 05 01:00:00 EDT 2022 amiodarone 200 mg tablet 1 TAB TABLET G- tube Every 12 Hours Indication: AFIB WedJan 04 20:00:00 EDT 2022e Sep 05 01:00:00 EDT 2022 melatonin 5 mg tablet 1 tablet TABLET Or al 1 Time Daily Indication: Insomnia WedDec 29 16:00:00 EDT 2022Jan 04 19:45:00 EDT 2022 ALPRAZolam 0.25 mg tablet 1 tab TABLET E nteral Tube 1 Time Daily Indication: Anxiety WedDec 28 18:19:00 EDT 2022 TuDec 29 16:46:00 EDT 2022 sodium bicarbonate 650 [...] Hours Indication: Pain WedDec 03 15:00:00 EDT 2022Dec 03 15:01:00 EDT 2022 acetaminophen 325 mg tablet [...] 2022 * End Date: * Text: * detention (current) use of anticoagulants* Code: * Start [...] 2022 * End Date: * Text: * 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
--- OUTSIDE RECORDS SUMMARY | 2025-01-10 12:43 | XMS_ITS | Clinical Summary ---
Author Organization [facility] Address [address] [place] [address] Care Team Providers Care Tax Staff Accountant Name Role Phone Unavailable Primary Care Provider Unavailabl e Medications rivastigmine tartrate (EXELON) 3 mg capsule Give 1 capsule via feeding tube twice daily 180 Capsule 2 10/24/2024 12:21 PM CDT 04/23/2024 Active Encounters Date Type Department Care Team Description 12/27/2024 External Device Data ST[facility] ABSTRACTION Provider, Abstract 12/27/2024 External Device Data [facility] ABSTRACTION Provider, Abstract 12/27/2024 External Device Data [facility] ABSTRACTION Provider, Abstract 12/26/2024 External Device Data [facility] ABSTRACTION Provider, Abstract 11/29/2024 External Device Data [facility] ABSTRACTION Provider, Abstract 11/28/2024 External Device Data [facility] ABSTRACTION Provider, Abstract 11/02/2024 External Device Data [facility] ABSTRACTION Provider, Abstract 11/01/2024 External Device Data [facility] ABSTRACTION Provider, Abstract 10/31/2024 External Device Data [facility] ABSTRACTION Provider, Abstract from Last 3 Months Social History Tobacco Use Types Packs/Day Years Used Date Smoking Tobacco: Never Assessed Comments Unknown Sex and Gender Information Value Date Recorded Sex Assigned at Not on file Legal Sex Female 11:37 AM HEDGE FUND ACCOUNTANT Gender Identity Not on file Sexual Orientation Not on file Plan of Treatment Health Maintenance Due Date Last Done Comments DTAP/TDAP/TD VACCINES (1 - Tdap) 1965 PNEUMOCOCCAL VACCINE 50+ YEARS (1 of 1 - PCV) 07/14/18 97 ZOSTER VACCINE (1 of 2) 1996 OSTEOPOROSIS SCREENING 2011 RSV VACCINE (60+ or ) (1 - 1-dose 75+ series) 2021 INFLUENZA VACCINE (#1) 2025 Insurance RX [employer] Medicare Part D RX [employer] RX Member Subscriber Plan / Payer (Ef fective for All Dates) Name:Shelly Mims Relation to Subscriber:Self Name:Shelly Mims Payer ID:Not on file Group ID:[id number] Type:RX Commercial Address: [address]
--- OUTSIDE RECORDS SUMMARY | 2025-01-10 12:43 | XMS_ITS ---
Author Name Auto Generated, Auto Generated Organization [facility] Address [address] [place] [address] Phone [phone] Care Team Providers Care Viticulturist Name Role Phone Brayan Shea Unavailable Alejandro Melgar Unavailable [phone] Functional Status No Results Mental Status No Results Allergies and Intolerances Name Onset Date Reaction Severity No Known Allergies (Allergy) WedDec 03 14:38:00 EDT 2022 Encounters Program Name Primary Diagnosis Admission Date/Time Dis charge Date/Time null WedSep 25 20:00 :00 EDT 2021 [facility] Wed[facility] 20:00:00 EDT 2022 Medications Medication Directions Start Date End Date [...] Indication: INFECTION WedJan 04 20:00:00 EDT 2022 [facility] Jan 09 19:59:00 EDT 2022 amLODIPine 5 [...] NOT EXCEED 3GM/DAY APAP FROM ALL SOURCES*2 TRNU=004 MG WedJan 04 20:00:00 EDT 2022Feb 16 [...] Indication: HYPOTHYROIDISM WedJan 04 20:00:00 EDT 2022 [facility] Jan 09 06:14:00 EDT 2022 gabapentin 100 [...] 2022 * End Date: * Text: * [facility] (current) use of anticoagulants* Code: * Start [...] 2022 * End Date: * Text: * 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
--- OUTSIDE RECORDS SUMMARY | 2025-01-10 12:44 | XMS_ITS | Referral Summary ---
Author Organization [facility] Address [address] [place] [address] Care Team Providers Care Programming Manager Name Role Phone Alejandro Melgar MD Primary Care Provider [phone] Warner Guy MD Unavailable [phone] Encounters Date Type Department Care Team Description 10/11/2024 Orders Only [facility] Cardiology [address] [place] [address] ProviderDeanna MD 10/11/2024 11:15 AM CDT Office Visit [facility] Group Cardiology at [address] [place] [address] Tab Teague MD Paroxysmal atrial fibrillation (HCC) (Primary Dx); Paroxysmal atrial flutter (HCC); Presence of left atrial appendage closure device; Primary hypertension; Mixed hyperlipidemia from Last 3 Months Allergies Active Allergy Reactions Criticality Noted Date Comments Candex (Dextrates) Unknown 07/02/1998 allergy_desc: CARBAPENEM Cephalosporins Unknown 07/02/1998 allergy_desc: CEPHALOSPORINS Nystatin Other (See comments),Unknown Medium 07/02/1998 allergy_desc: CARBAPENEM Penicillamine Unknown 07/02/1998 allergy_desc: PENICILLAMINE Penicillins Rash Medium 08/26/2007 Medications kcqrjdjr-btb-TZ- lycopen-lutein 0.4 mg-300 mcg- 250 mcg tabletIndication [...] on file Legal Sex Female 10:21 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 Gender Identity Female 02/05/2022 7:21 AM CDT [...] 68 kg (150 lb) 07/05/2024 10:46 AM COMMERCIAL SALES CONSULTANT Height 167.6 cm (5' 6) 07/05/2024 10:46 AM COMMERCIAL SALES CONSULTANT Body Mass Index 24.21 07/05/2024 10:46 AM COMMERCIAL SALES CONSULTANT Plan of Treatment Not on file Medical Devices Implanted Type Area Inpatient Auditor Device Identifier Shelf Expiration Date Model / Serial / Lot [employer] Fredi Watchman Flx Procedure Device Wmflxperproc - S0 - [id number] Implanted:Qty: 1 on 09/07/2023 by Donn Rosas MD at [facility] Left Atrial Appendage Occluder Left: Atrial Appendage [employer] Fredi 04/27/2026 [id number] / 0 / [id number] [employer] V[employer] Device Clsr Perclose Prostyle Sut-Mediatd Closure-Repair Sys 68503-44 - S0 - [id number] Implanted:Qty: 1 on 09/07/2023 by Donn Rosas MD at [facility] [employer] 06/13/2025 [id number] / 0 / [id number] [employer] V[employer] Device Clsr Perclose Prostyle Sut-Mediatd Closure-Repair Sys 45841-77 - S0 - [id number] Implanted:Qty: 1 on 09/07/2023 by Donn Rosas MD at [facility] [employer] 06/13/2025 [id number] / 0 / [id number] Procedures Procedure Name Priority Date/Time Associated Diagnosis Comments SCREENING MAMMOGRAM BILATERAL W LAZ Schedule Routine, Read Routine (OP Routine) 05/02/2019 9:35 AM COMMERCIAL SALES CONSULTANT Encounter for screening mammogram for malignant neoplasm of breast DEXA AXIAL SKELETON BONE DENSITY 1 OR MORE SITES Schedule Routine, Read Routine (OP Routine) 05/25/2018 8:11 AM COMMERCIAL SALES CONSULTANT Osteoporosis without current pathological fracture, unspecified osteoporosis type COLONOSCOPY REPORT 12/08/2012 from Last 3 Months or Most Recently Relevant to Health Maintenance Results * Screening Mammogram Bilateral W Laz (05/02/2019 9:35 AM COMMERCIAL SALES CONSULTANT) Anatomical Region Laterality Modality Breast Bilateral Mammography Narrative 05/03/2019 8:58 AM COMMERCIAL SALES CONSULTANT Screening Mammogram Bilateral W Laz: 05/02/19 Clinical: [...] 1 or 2 Site (05/25/2018 8:11 AM COMMERCIAL SALES CONSULTANT) Anatomical Region Laterality Modality Body N/A Radiographic Amada ging Narrative 05/25/2018 8:28 AM COMMERCIAL SALES CONSULTANT Patient Name: Shelly Mims Date of : 1945 Date of scan: 05/25/2018 Bone mineral density was performed on a [employer] Discovery Densitometer. Machine Cross-calibration and Precision studies [...] Virk, Lancet 341 : 72-75 (1992) 3) Tan, [...] by the International Society of Clinical Densitometry. [id number] Alina Avina MD IMG DXA PROCEDURES Final Re sult * COLONOSCOPY REPORT (12/08/2012) Anatomical Region Laterality Modality Other Narrative 12/08/2012 Ordered by an unspecified provider. Historical Provider GI PROCEDURE ORDERABLES F inal Result from Last 3 Months or Most Recently Relevant to Health Maintenance Insurance MEDICARE [facility] MEDICARE SUPPLEMENT MEDICARE MEDICARE [facility] MEDICARE SUPPLEMENT Advance Directives For more information, please contact: [phone] * Full Code (Latest Code Status on File) Date Activated Date Inactivated Comments 09/07/2023 3:49 PM 09/08/2023 6:51 PM Care Teams Programming Manager Relationship Specialty Start Date End Date Alejandro Melgar MD [address] [place] [address] PCP - General Internal Medicine 09/23/22 Warner Guy MD [address] [place] [address] Consulting Physician Cardiology 06/22/23
[2025-01-10 19:56] LABS: Hematocrit 36.8 % (37.0-47.0); Hemoglobin 11.7 g/dL (12.0-15.0); Immature Granulocyte Percent A 0.3 % (0-0.5); Lymphocytes Absolute Auto 0.95 K/mm3 (0.9-3.2); Mean Corpuscular HGB Conc 31.8 g/dl (32-36); Mean Corpuscular Hemoglobin 29.6 pg (26-34); Mean Corpuscular Volume 93.2 fl (80-100); Nucleated Red Blood Cells Absolute Auto 0.000 K/mm3 (0.0-0.012); Nucleated Red Blood Cells Perc 0.0 % (0.0-0.2); Platelet Count Result 235 k/mm3 (150-375); Red Blood Count 3.95 M/mm3 (4.2-5.4); White Blood Count 5.9 K/mm3 (4.5-10.0)
[2025-01-10 20:15] LABS: Alanine Aminotransferase 71 U/L (6-35); Albumin Level 3.7 g/dL (3.5-5.1); Alkaline Phosphatase 105 U/L (38-126); Anion Gap 6 mmol/L (4-12); Aspartate Amino Transferase 56 U/L (14-36); Bilirubin,Total 0.3 mg/dL (0.2-1.3); Blood Urea Nitrogen 26 mg/dL (7-17); Calcium 9.1 mg/dL (8.4-10.2); Carbon Dioxide 28 mmol/L (22-30); Chloride 97 mmol/L (98-107); Cholesterol 157 mg/dL (0-200); Estimated Glomerular Filt Rate > 60; Glucose 98 mg/dL (65-110); HDL Direct 80 mg/dL; Potassium 4.9 mmol/L (3.4-5.0); Sodium 131 mmol/L (137-145); Total Protein 6.4 g/dL (6.3-8.2); Triglycerides 80 mg/dL (<150)
[2025-01-10 20:35] LABS: Free T4 Free Thyroxine 1.77 ng/dL (0.78-2.19)
[2025-01-10 20:50] LABS: Hemoglobin A1C 5.5 % (<5.7)
[2025-01-10 20:51] LABS: Thyroid Stimulating Hormone 8.600 uIU/mL (0.465-4.680)
== END 2025-01-10 12:41 | disposition home or self-care (01) ==
PROVIDERS: PCP Internal Medicine; Visit Provider Internal Medicine
DX: E03.9 Hypothyroidism, unspecified (principal); I10 Essential (primary) hypertension; E78.5 Hyperlipidemia, unspecified; R73.03 Prediabetes; E55.9 Vitamin D deficiency, unspecified
CPT/HCPCS: 36415; 80053; 80061; 82306; 83036; 84439; 84443; 85025

== ENCOUNTER 2025-05-25 11:09 | Outpatient (CLI) | payer MEDICARE, SELFPAY ==
[2025-05-25 19:08] LABS: Hemoglobin A1C 5.4 % (<5.7)
[2025-05-25 19:17] LABS: Alanine Aminotransferase 85 U/L (6-35); Albumin Level 3.8 g/dL (3.5-5.1); Alkaline Phosphatase 127 U/L (38-126); Anion Gap 4 mmol/L (4-12); Aspartate Amino Transferase 61 U/L (14-36); Bilirubin,Total 0.4 mg/dL (0.2-1.3); Blood Urea Nitrogen 27 mg/dL (7-17); Calcium 8.9 mg/dL (8.4-10.2); Carbon Dioxide 26 mmol/L (22-30); Chloride 101 mmol/L (98-107); Cholesterol 146 mg/dL (0-200); Estimated Glomerular Filt Rate 56; Glucose 96 mg/dL (65-110); HDL Direct 75 mg/dL; Potassium 4.8 mmol/L (3.4-5.0); Sodium 131 mmol/L (137-145); Total Protein 6.7 g/dL (6.3-8.2); Triglycerides 84 mg/dL (<150)
[2025-05-25 19:47] LABS: Free T4 Free Thyroxine 1.57 ng/dL (0.78-2.19)
[2025-05-25 19:53] LABS: Thyroid Stimulating Hormone 17.600 uIU/mL (0.465-4.680)
== END 2025-05-25 11:10 | disposition home or self-care (01) ==
PROVIDERS: PCP Internal Medicine; Visit Provider Internal Medicine
DX: E78.5 Hyperlipidemia, unspecified (principal); E03.9 Hypothyroidism, unspecified; I10 Essential (primary) hypertension; R73.03 Prediabetes
CPT/HCPCS: 36415; 80053; 80061; 83036; 84439; 84443